=== PATIENT | male | born 1950 | race Caucasian/White ===

== ENCOUNTER 2024-04-24 18:14 | Inpatient (IN) | payer OTHER, SELFPAY ==
[2024-04-24] VITALS (12 sets, daily range): BP systolic 120–179; BP diastolic 70–157; BMI 29.2
--- NOTE | 2024-04-24 12:48 | ED.PDOC.TRB ---
ED Provider Triage
-
Patient seen by provider in Triage?: Seen in Triage
73-year-old male sent to the ER by cardiology team to ultimately be admitted for CHF exacerbation despite medications at home. Patient endorses worsening shortness of breath and lower extremity edema. At rest he still feels somewhat short of
breath but is still speaking full sentences and in no acute respiratory distress. Labs and workup initiated. Patient's ultimate disposition will be to be admitted.
[2024-04-24 13:14] LABS: % Basophils 0.8 % (0-2); % Eosinophils 1.9 % (0-6); % Immature Granulocytes 2.4 % (0-0.5); % Neutrophils 59.9 % (42.2-75.2); Absolute Basophils 0.1 10^3/uL (0-0.2); Absolute Eosinophils 0.2 10^3/uL (0-0.7); Absolute Immature Granulocytes 0.3 10^3/uL (0-0.05); Absolute Lymphocytes 2.8 10^3/uL (1.2-3.4); Absolute Neutrophils 6.5 10^3/uL (1.4-6.5); Hematocrit 42.4 % (39.0-52.0); Hemoglobin 14.4 g/dL (13.0-18.0); Mean Corpuscular Hgb 31.9 pg (27.0-31.0); Mean Corpuscular Volume 93.8 fL (80.0-94.0); Mean Platelet Volume 10.2 fL (7.4-10.4); Nucleated Red Blood Cells % 0 % (-); Platelet Count 152 10^3/uL (130-400); Red Blood Cell Count 4.52 10^6/uL (4.70-6.10); Red Cell Dist. Width 15.5 % (11.5-14.5); White Blood Cell Count 10.9 10^3/uL (4.8-10.8)
[2024-04-24 13:28] LABS: Blood Urea Nitrogen 22 mg/dl (9-20); Calcium 9.3 mg/dl (8.4-10.2); Carbon Dioxide 24 mmol/L (22-30); Chloride 107 mmol/L (98-107); Glucose 202 mg/dl (70-99); Potassium 3.9 mmol/L (3.5-5.1); Sodium 141 mmol/L (135-145); eGFR > 60.00
[2024-04-24 13:34] LABS: NT-proBNP 2800 pg/ml
--- NOTE | 2024-04-24 14:29 | W.PN.CD ---
Addendum entered and electronically signed by Juan M Romero MD 04/24/24 15:21:
Patient evaluated in collaboration with BOX OFFICE AGENT; agree with below. Patient transferred from the cardiology office for worsening suspected CHF; cardiac history as outlined below.
-Will arrange right and left heart catheterization tomorrow; then subsequent evaluation by EP Cardiology.
-Echocardiogram today.
-Lasix 40 IV BID.
-Hold Eliquis tonight for procedure tomorrow morning.
-rn mental health.
-NPO after midnight.
Original Note:
Today's Communication / Plan
-
IV diuresis, which requires intensive monitoring
Echo
Timing TBD for potential ischemic eval and pacemaker
Impression / Plan
-
Assessment/Plan: 73 y/o male with CAD with LAD stent 2006, RCA stent 2011, LM and D1 stenting 2018, aflutter with hx ablation, tetralogy of Fallot repair, pulmonic stenosis, first degree AVB, bifascicular block, NSVT, CML, HTN, trigeminal neuralgia,
chronic low back pain who is here from the office since he reported SOB, LE edema. Lasix 40 mg daily was attempted as OP, but did not help. Home sats in high 80's at times.
Acute heart failure:
-type unknown, but most recent EF 50% so preserved EF. Check echo.
-weight up, edema, SOB. BNP 2800. CXR pending.
-on lasix 40 mg daily as OP, plan for IV lasix, which requires intensive monitoring- 40 mg IV BID for now.
CAD with history of multiple stents:
-on ASA and Eliquis
-likely to need ischemic eval, will review timing/plan
Cardiac conduction disease:
-patient with hx RBBB, LBBB seen on OP EKG today
-follow telemetry
-will need pacemaker, will need EP input
Persistent AFIB:
-on Eliquis
Full consultation in chart.
Physical Exam
Vital Signs/Labs
Vital Signs
Temp Pulse Resp BP Pulse Ox
97.5 F 53 29 134/89 96
04/24/24 12:44 04/24/24 14:17 04/24/24 14:17 04/24/24 14:17 04/24/24 14:17
04/24/24 12:59
04/24/24 12:59
04/24/24
12:59
Kct-H-Nbzjjnjvxvb Pept 2800
Physical Exam
Constitutional: No acute distress
EENT: Anicteric
Cardiovascular: Rhythm/rate is irregular and Pedal edema present (moderate BLE edema)
Respiratory: Other (diminished to bases, mildly increased WOB)
Neuro/Psych: AO x 3
Other: Skin
Data Reviewed
-
Date of Service: April 24, 2024
EKG: Other (tele AFIB)
Echo: Ordered by me
--- NOTE | 2024-04-24 14:43 | ED.GENMED ---
History of Present Illness
General
Chief Complaint: Breathing Problem
Source: patient and spouse
Exam Limitations: none
Time Seen by Provider: 04/24/24 14:03
Nursing documentation reviewed up to this point in time: agreed with
Travel History
Have you had any contact with someone who has COVID-19?: No
Do you have any symptoms of coronavirus? Fever > 100 degrees, chills, cough, shortness of breath, sore throat, loss of taste or smell, muscle aches, or headache?: No
History of Present Illness
History of Present Illness:
73-year-old male past medical history of A-fib currently on Eliquis, CAD hypertension presenting to the emergency department today after being sent in by his machine designer with concerns of heart failure exacerbation. He has gained 15 pounds in last
3 weeks and has had increasing lower extremity edema. He is also been intermittently short of breath and hypoxemic at home. At rest here he claims that he feels okay but has significant increasing symptoms with exertion.
Past History
Past History
ED Past Medical History: Arrthythmia, CAD, Cancer (CML) and Hypercholesterolemia
ED Past Surgical History: Appendectomy, Cardiac (Cardiac ablation, tetrology of fallot repair) and Cholecystectomy
Social History
Tobacco: Non-smoker
Alcohol: Former
Drug: None
Personal:
Living: with family
Employment: Employed ([employer])
Family History
Family History: Other (Mother with diabetes)
Review of Systems
Review of Systems
Allergies reviewed?: Yes
All Other Systems: ROS reviewed and negative except as documented in HPI and ROS
Phy Exam
Physical Exam
Physical Exam:
GENERAL: Alert , in no apparent distress
EYE: pupils equal and reactive
NECK: Supple, no significant adenopathy.
ENT: o/p clr, mmm.
CARDIAC: Regular rate and rhythm .
LUNGS: Clear breath sounds bilaterally, no acute respiratory distress, no wheezes/rales/rhonchi
ABDOMEN: Soft, without focal tenderness, no r/g, no cvat
NEUROLOGICAL: Alert and oriented, no focal neuro deficits
SKIN: Warm and dry, skin intact.
MUSCULOSKELETAL: +2 pitting edema bilaterally distal to the knees, well perfused.
PSYCH: Normal and appropriate interaction.
Scores
Heart Failure Risk
Heart Failure Risk Score: Not Applicable
Course
Orders/Labs/Results
Orders:
Orders
04/24/24 12:52
Electrocardiogram (*1) Urgent
Reason for Study: Shortness of Breath
EKG- Treatment ONCE
CR Chest - 2 Views Urgent
Comment:
Reason For Exam: CHF
04/24/24 12:59
Basic Metabolic Panel Urgent
Complete Blood Count/With Diff Urgent
NT-proBNP Urgent
04/24/24 14:39
Echo 2D MMode Color/Doppler Routine
Reason for Study: CHF
04/24/24 14:41
Furosemide [Lasix] 40 mg IV ONCE ONE
04/24/24 14:42
Troponin I Urgent
Weight As Directed
Frequency: Daily
Abnormal Lab Results
04/24/24
12:59
WBC 10.9 H 10^3/uL
(4.8-10.8)
RBC 4.52 L 10^6/uL
(4.70-6.10)
MCH 31.9 H pg
(27.0-31.0)
RDW 15.5 H %
(11.5-14.5)
Abs Immat Gran (auto) 0.3 H 10^3/uL
(0-0.05)
Absolute Monos (auto) 1.0 H 10^3/uL
(0.1-0.6)
Immature Gran % 2.4 H %
(0-0.5)
BUN 22 H mg/dl
(9-20)
Glucose 202 H mg/dl
(70-99)
04/24/24 12:59
04/24/24 12:59
Vital Signs
Initial and Last Documented VS:
Initial Vital Signs
Temp Pulse Resp BP Pulse Ox
97.5 F 56 20 132/80 96
04/24/24 12:44 04/24/24 12:44 04/24/24 12:44 04/24/24 12:44 04/24/24 12:44
Last Documented Vital Signs
Temp Pulse Resp BP Pulse Ox
97.5 F 53 29 134/89 96
04/24/24 12:44 04/24/24 14:17 04/24/24 14:17 04/24/24 14:17 04/24/24 14:17
MDM/Problems Addressed
MDM/Problems Addressed:
73-year-old male presenting to the emergency department today with concerns of likely heart failure exacerbation worsening at home despite taking Lasix. Sent in by his machine designer. Message received by his machine designer specifically plan to admit
for IV Lasix and further assessment.
*Critical Care Note
Total Time (30-74mins, 75-104mins- exclusive of procedures): Not Applicable
ED Attending Note
-
Portions of this chart may have been created with voice recognition software.� Occasional wrong word or��sound alike� substitutions may have occurred due to the inherent limitations of voice recognition software.
Discharge Plan
Departure
Patient Disposition: Admit
Date of Disposition: 04/24/24
Time of Disposition: 14:45
Admit to: Telemetry
Admit to doctor: Jose E
Presentation/result/management discussed w/ accepting MD/DO: Hospitalist
Patient with high blood pressure during this ER visit?: No
Condition: Good
Covid-19: Not Applicable
Discharge Problem:
Acute exacerbation of CHF (congestive heart failure)
Prescriptions:
No Action
furosemide 20 MG tablet
40 mg PO Q48H
oxycodone 15 MG tablet
15 mg PO NOON
Patient Comments:
12/23/20-patient lasted filled on 07/14/2020 #90
nitroglycerin 0.4 MG tablet, sublingual
0.4 mg sublingual [id number] PRN (Reason: chest pain)
oxycodone [OxyContin] 30 MG tablet extended release 12 hr
30 mg PO BID
Patient Comments:
12/23/20-ptient lasted filled 11/22/20 #60
atorvastatin 40 MG tablet
40 mg PO NOON
polyethylene glycol 3350 17 GRAMS powder in packet
17 grams PO QPM
gabapentin 400 MG capsule
400 mg PO TID Qty: 90 0RF
acetaminophen 325 MG tablet
650 mg PO DAILYPRN PRN (Reason: low grADE FEVER)
Patient Comments:
PATIENT IN PROCESS OF GETTING COVID VACCINES AND HE SAID HE BEEN GETTING LOW GRADE FEVER AROUND 99
dasatinib [Sprycel] 100 MG tablet
100 mg PO HS
metoprolol succinate 12.5 MG tablet extended release 24 hr
12.5 mg PO HS
pantoprazole 40 MG tablet,delayed release (DR/EC)
40 mg PO BID Qty: 60 0RF
clopidogrel 75 MG tablet
75 mg PO NOON Qty: 0 0RF
Rx Instructions:
resume on 12/29/20
apixaban [Eliquis] 5 MG tablet
5 mg PO BID 30 Days Qty: 60 0RF
Patient Comments:
patient held off on taking this because of rectcal bleeding
Rx Instructions:
resume on 12/29/20
Interventions
Interventions:
*ED COVID-19 Vaccine History Last Done: 04/24/24 12:44
Discharge Date and Time
Print Language: YI
[2024-04-24] MEDS: LASIX 40 MG IV (15:14)
--- NOTE | 2024-04-24 15:45 | HPS.HSE ---
Family Physician
-
Family Physician: Gonzalez Garcia
Chief Complaint
-
Increasing weight gain and shortness of breath
History of Present Illness
73-year-old sent in to the ER from by the cardiology team for admission due to CHF exacerbation despite medication changes at home in the past week with increasing shortness of breath and lower extremity edema in the last week with a weight gain of
approximately 15 pounds.
He has a longstanding history of chronic cardiac issues that include coronary artery disease with multiple stents along with permanent atrial fibrillation on Eliquis and a history of tetralogy of Fallot with VSD repair when much younger apparently
may have a history of bifascicular block but a left bundle branch block seen on EKG today is remarkably new according to cardiology and now will be admitted with cardiology consultation and electrophysiology input. Patient's proBNP is 2800 prior it
had been about 680/presently undergoing 2D echocardiogram at bedside in the ED and chest x-ray results pending but look to be consistent with vascular edema.
Medical History
Past Medical History
Past Medical History: Reports Arrhythmia (Permanent atrial fibrillation), CAD (2 stents 1 to the LAD in 2006 another 1 to the RCA in 2019), Cancer (CML on), HTN and Valvular Disease (VSD repair and tetralogy of Fallot by history)
Past Surgical History: Reports Cardiac
Social History
Tobacco: Non-smoker
Alcohol: None
Drug: None
Personal:
Living: With Family
Family History
Family History: Not pertinent and Cancer
Allergies / Home Medications
Allergies reflects when Allergies were last updated in [facility].
Home Medications with original date entered in [facility]
Allergy/Medication List:
Allergies
Allergy/AdvReac Type Severity Reaction Status Date / Time
fentanyl Allergy Nausea / Verified 04/24/24 12:45
Vomiting
scallops Allergy Vomiting Verified 04/24/24 12:45
Home Medications
furosemide 20 mg tablet 40 mg PO DAILY Weight Gain 08/22/20
acetaminophen 325 mg tablet 650 mg PO DAILYPRN PRN mild pain 12/23/20
metoprolol succinate 25 mg tablet,extended release 24 hr 12.5 mg PO HS Blood pressure 12/23/20
apixaban 5 mg tablet (Eliquis) 5 mg PO BID Blood clot prevention/tx 30 days #60 tabs 12/27/20
Patient's Own Morphine Pump 0 mg IV .VIA PUMP 04/24/24
Senna Gummies 2 tab PO DAILYPRN PRN constipation 04/24/24
aspirin 81 mg chewable tablet 81 mg PO DAILY 04/24/24
duloxetine 30 mg capsule,delayed release 30 mg PO DAILY 04/24/24
losartan 25 mg tablet 25 mg PO DAILY 04/24/24
pregabalin 150 mg capsule 150 mg PO BID 04/24/24
pregabalin 75 mg capsule 75 mg PO DAILY@1200 04/24/24
simvastatin 20 mg tablet 20 mg PO HS 04/24/24
Review of Systems
-
History Source: Patient and Family
Respiratory: Reports Cough
Cardiac: Reports See HPI
Abdomen/GI: Reports No Symptoms
: Reports No Symptoms
Musculoskeletal: Reports No Symptoms and Joint Swelling
Physical Exam
Vital Signs
Vital Signs
Temp Pulse Resp BP Pulse Ox
97.5 F 55 15 121/70 94
04/24/24 12:44 04/24/24 15:15 04/24/24 15:15 04/24/24 15:00 04/24/24 15:15
Physical Exam
General: Appears Chronically Ill
HEENT: NormoCephalic
Respiratory: Rales and Crackles
Cardiac: Irregular Rhythm and Murmur
GI: Soft
Musculoskeletal: Edema, Left Lower Extremity and Edema, Right Lower Extremity
Skin: IV/Catheter Site
Neuro: Awake
Laboratory Results
-
04/24/24 12:59
04/24/24 12:59
Laboratory Results
Troponin I Cancelled 04/24/24 14:42
Data Reviewed
-
Critical Care Time (in minutes): 56
Diagnostic Radiology: Report Reviewed by me (Chest x-ray with small right pleural effusion and cardiomegaly)
Lab Data: Labs Reviewed by me (Troponin pending, proBNP 2079/)
Impression/Plan
-
IMPRESSION:
73-year-old sent in to the ER from by the cardiology team for admission due to CHF exacerbation despite medication changes at home in the past week with increasing shortness of breath and lower extremity edema in the last week with a weight gain of
approximately 15 pounds.
He has a longstanding history of chronic cardiac issues that include coronary artery disease with multiple stents along with permanent atrial fibrillation on Eliquis and a history of tetralogy of Fallot with VSD repair when much younger apparently
may have a history of bifascicular block but a left bundle branch block seen on EKG today is remarkably new according to cardiology and now will be admitted with cardiology consultation and electrophysiology input. Patient's proBNP is 2800 prior it
had been about 680/presently undergoing 2D echocardiogram at bedside in the ED and chest x-ray results pending but look to be consistent with vascular edema.
Acute congestive heart failure
-Prior echocardiogram with 50% EF and pulmonary hypertension
-Weight gain and orthopnea
-Lasix IV 40 mg twice daily
-Losartan 25 mg p.o. daily
-2D echocardiogram being presently performed at bedside
-Cardiology consultation
Bifascicular block
-Based on cardiology record new left bundle branch block
-Will probably require pacemaker insertion
-EP consultation
-N.p.o. after midnight and hold Eliquis tonight
Permanent atrial fibrillation
-Rate management with metoprolol succinate 12.5 at at bedtime
-On chronic apixaban which will be held tonight
Coronary artery disease by history
-LAD stent, RCA stent
-Continue aspirin and clopidogrel, statin
Chronic pain
-Continue patient is on morphine pump at prior settings/as pharmacy verifies
-Continue pregabalin
-Duloxetine
Prior history of chronic myelogenous leukemia
Prior history of tetralogy of Fallot with VSD repair
Admit to telemetry
DVT prophylaxis on apixaban and venous pump
DNR/DNI/acknowledged by spouse at bedside
[2024-04-24 16:11] LABS: Troponin I 0.043 ng/ml
[2024-04-24] MEDS: LYRICA 150 MG PO (21:50)
[2024-04-24] MEDS: LIPITOR 10 MG PO (21:50)
[2024-04-24] MEDS: TOPROL XL 12.5 MG PO (21:50)
[2024-04-24 21:53] LABS: Troponin I 0.039 ng/ml
[2024-04-24 22:27] LABS: Vitamin B12 247 pg/ml (239-931)
[2024-04-25] VITALS (18 sets, daily range): BP systolic 108–164; BP diastolic 72–97; BMI 28.7
[2024-04-25 04:56] LABS: Hematocrit 46.8 % (39.0-52.0); Hemoglobin 15.9 g/dL (13.0-18.0); Mean Corpuscular Hgb 32.1 pg (27.0-31.0); Mean Corpuscular Volume 94.4 fL (80.0-94.0); Mean Platelet Volume 9.7 fL (7.4-10.4); Platelet Count 135 10^3/uL (130-400); Red Blood Cell Count 4.96 10^6/uL (4.70-6.10); Red Cell Dist. Width 15.4 % (11.5-14.5); White Blood Cell Count 10.9 10^3/uL (4.8-10.8)
[2024-04-25 05:25] LABS: Blood Urea Nitrogen 21 mg/dl (9-20); Calcium 9.7 mg/dl (8.4-10.2); Carbon Dioxide 26 mmol/L (22-30); Chloride 105 mmol/L (98-107); Estimated Creatinine Clearance 87 ml/min; Glucose 139 mg/dl (70-99); Potassium 4.4 mmol/L (3.5-5.1); Sodium 138 mmol/L (135-145); eGFR > 60.00
[2024-04-25 05:37] LABS: Troponin I 0.041 ng/ml
--- NOTE | 2024-04-25 05:50 | PTCARENOTE ---
Received pt from ED. Oriented to room. AOX4. Tele- Afib w/ BBBC. HR 40-50s. Pt sating at 97% on 2L O2 NC. Currently has no c/o at this time. Multiple wounds documented. See worklist. Wound nurse consulted. B/l heel foams applied. Labs drawn and set.
Pt aware NPO status for cath. Currently in bed; call barone w/in reach.
--- NOTE | 2024-04-25 07:57 | W.PN.HOSP.TC ---
Today's Communication/Plan
-
Eliquis on hold in preparation for cardiac cath this morning possible pacer insertion
Continue IV diuresis
Fluid restriction
Monitor BMP
Assessment / Plan
Assessment / Plan
73-year-old sent in to the ER from by the cardiology team for admission due to CHF exacerbation despite medication changes at home in the past week with increasing shortness of breath and lower extremity edema in the last week with a weight gain of
approximately 15 pounds.
He has a longstanding history of chronic cardiac issues that include coronary artery disease with multiple stents along with permanent atrial fibrillation on Eliquis and a history of tetralogy of Fallot with VSD repair when much younger apparently
may have a history of bifascicular block but a left bundle branch block seen on EKG today is remarkably new according to cardiology and now will be admitted with cardiology consultation and electrophysiology input. Patient's proBNP is 2800 prior it
had been about 680/presently undergoing 2D echocardiogram at bedside in the ED and chest x-ray results pending but look to be consistent with vascular edema.
Past Medical History: Reports Arrhythmia (Permanent atrial fibrillation), CAD (2 stents 1 to the LAD in 2006 another 1 to the RCA in 2019), Cancer (CML on), HTN and Valvular Disease (VSD repair and tetralogy of Fallot by history)
Past Surgical History: Reports Cardiac
Acute congestive heart failure
-Prior echocardiogram with 50% EF and pulmonary hypertension
-Weight gain and orthopnea
-Lasix IV 40 mg twice daily
-Losartan 25 mg p.o. daily
-2D echocardiogram performed in ED now shows a new RV dilatation with intact systolic function/EF unchanged from prior 55%
-Cardiology consultation
Bifascicular block
-Based on cardiology record new left bundle branch block
-Will probably require pacemaker insertion
-EP consultation
-N.p.o. after midnight and hold Eliquis for cardiac cath today
Permanent atrial fibrillation
-Rate management with metoprolol succinate 12.5 at at bedtime
-On chronic apixaban which will be held tonight
Coronary artery disease by history
-LAD stent, RCA stent
-Continue aspirin and clopidogrel, statin
Chronic pain
-Continue patient is on morphine pump at prior settings/as pharmacy verifies just refilled last week
-Continue pregabalin
-Duloxetine
Prior history of chronic myelogenous leukemia
Prior history of tetralogy of Fallot with VSD repair
Admit to telemetry
DVT prophylaxis on apixaban and venous pump
DNR/DNI/acknowledged by spouse at bedside
Anticipated Discharge: Within 24 hours
Subjective/Interval History
-
Date of Service: April 25, 2024
With sleep overnight good urine output with IV diuresis and denies any significant respiratory distress no chest pain
Objective Data
-
Labs:
Laboratory Results
04/25/24
04:45
WBC 10.9 H
Hgb 15.9
Hct 46.8
Plt Count 135
Sodium 138
Potassium 4.4
Chloride 105
Carbon Dioxide 26
BUN 21 H
Creatinine 0.7
Glucose 139 H
Calcium 9.7
Vital Signs:
Vital Signs
Temp Pulse Resp BP Pulse Ox
97.4 F 42 20 164/83 95
04/25/24 07:26 04/25/24 05:00 04/25/24 07:26 04/25/24 04:54 04/25/24 07:26
Review of Systems
-
All other systems: Reviewed and negative
Constitutional: Reports Fatigue
Respiratory: Reports No Symptoms
Cardiac: Denies Chest Pain
Abdomen/GI: Reports No Symptoms
Physical Exam
-
General: Well Developed
HEENT: Normocephalic
Respiratory: Clear to Auscultation
Cardiac: Bradycardic (In the 40s with underlying A-fib)
GI: Soft
Musculoskeletal: Edema, Right Lower Extrem and Edema, Left Lower Extrem
Skin: Warm
Neuro: Awake
Data Reviewed
-
Total Time Spent with Patient (in minutes): 56
Medical Tests (Nuc Med, Echo etc): Report Reviewed by me (Reviewed report of repeat 2D echocardiogram now showing rt ventricular dilatation with intact systolic function dilated atria EF unchanged)
Labs: Labs Reviewed by me
[2024-04-25] MEDS: LOW STRENGTH ASPIRIN 81 MG PO (08:24)
[2024-04-25] MEDS: COZAAR 25 MG PO (08:24)
[2024-04-25] MEDS: LYRICA 150 MG PO ×2 (08:24→21:59)
[2024-04-25] MEDS: LASIX 40 MG IV ×2 (08:25→16:18)
--- NOTE | 2024-04-25 11:21 | CM ---
Chart reviewed. Patient is independent of ADLS, lives with his in a [address], 0 [address], ambulates with a rollator. Patient also has a Bipap machine he uses at home. Plan is for the patient to return home with [facility]. [facility] to follow
--- NOTE | 2024-04-25 13:59 | ITS.CL.CATH ---
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
Cardiac Catheterization
Procedure Report:
CARDIAC CATHETERIZATION REPORT
Date of Procedure: 04/25/2024
Referring: Juan M Romero M.D.
Indication: Acute congestive heart failure, known coronary artery disease.
PROCEDURE:
1. Right heart catheterization.
2. Left heart catheterization.
3. Coronary angiography.
4. Left ventriculography.
ACCESS:
6 [place] right radial artery.
5 [place] right antecubital vein.
CATHETERS:
1. 5 [place] balloon wedge.
2. 5 [place] JL 3.5.
3. 6 [place] JR4.
4. 5 [place] angled pigtail.
HEMODYNAMIC DATA
Weight (kg): 82.6
AO (s/d/x mmHg): 145/81/104
LV (s/x mmHg): 145/15
PCWP (a/v/x mmHg): 16/39/16
PA (s/d/x mmHg): 36/15/22
RV (s/x mmHg): 61/15
RA (a/v/x mmHg): 17/
SVC SvO2 (%): 55.9
IVC SvO2 (%): 61.9
MVO2 (%): 57.4
RA SvO2 (%): 57.5
RV SvO2 (%): 55.9
PA SvO2 (%): 55.8
SaO2 (%): 95.1
Hbg (g/dL): 15.5
CO (L/min): 2.66
CI (L/min/m2): 1.37
TPG (mmHg): 6
PVR (Lance Units): 2.26
SVR (dynes*seconds*cm^-5): 2677
AVO2 Diff (Volume %): 8.28
AV gradient (x, mmHg): None.
AV area (cm2): Normal.
PV gradient (x, mmHg): 12.25
PV area (cm2): 1.70
LEFT VENTRICULOGRAPHY: Performed in an [place] projection. Normal left ventricular size and systolic function. Left ventricular ejection fraction is 65% by visual estimation. There is a small apical ventricular diverticulum. There is severe mitral
valve regurgitation. There is no aortic valve insufficiency. The aortic root is at least mildly dilated.
CORONARY ANGIOGRAPHY
Dominance: Right.
Left Main: Large size, trifurcating vessel. A patent stent is visible in the proximal margin of the artery. There is a 60-70% lesion in the distal aspect of the artery, immediately proximal to the trifurcation.
LAD: Normal size vessel giving rise to 1 significant diagonal which bifurcates into a small upper branch and a large lower branch. A prior stent is visible in the proximal margin of the lower branch of the diagonal. The lower branch of the
diagonal is chronically totally occluded and supplied by diagonals from the RCA.
Ramus: Medium to large size vessel. There is no visible coronary artery disease, though there may be some extension of the left main lesion into the origin of the ramus.
Circumflex: Normal size, nondominant vessel giving rise to 2 marginals. There is a Eason 1, 1, 1 90% lesion at the origin of the first obtuse marginal. There is a 40-50% lesion in the origin of the second, smaller obtuse marginal.
RCA: Large size, dominant vessel giving rise to a significant posterolateral arcade. The RCA gives rise to 2 significant RV marginals that coursed along the front of the heart and supply the middle and distal inferior septum. A patent stent is
present in the mid RCA with a 70% ISR. There is a 50% lesion in the distal RCA, immediately proximal to the origin of the small RPDA which supplies the proximal half of the inferior septum. There are tandem 80% lesions in the large posterolateral
branch. There is a 70% lesion in the proximal margin of the first acute marginal. The second acute marginal is chronically totally occluded and supplied by collaterals from the first acute marginal.
INTERVENTIONS
None.
Closure Device: Vascular band for the right radial artery, manual pressure for the right antecubital vein.
Radiation dose (mGy): 578.81
DAP (cm2.Gy): 19.2
Fluoroscopy time (minutes): 7.2
Sedation time (minutes): 31
CONCLUSIONS:
1. 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
lesion in the origin of the second, smaller OM, a patent stent with 70% ISR in the mid RCA, a 70% lesion in a large RV marginal which supplies the distal aspect of the inferior septum and a COURIER DELIVERY DRIVER of the second acute marginal with severe, tandem 80%
lesions in the large posterolateral branch.
2. Top normal to mildly elevated filling pressures (LVEDP = 15 mmHg, PCWP = 15 mmHg at 82.6 kg).
3. Severely depressed cardiac function (cardiac index = 1.37 L/min/m�).
4. Severe, 3+ mitral valve regurgitation.
5. Preserved LV systolic function, LV ejection fraction = 65% with a small apical diverticulum.
6. Severely elevated systemic vascular resistance (2677 dynes*seconds*cm^-5).
7. History of tetralogy of Fallot repair, age 24. No evidence of residual intracardiac shunt.
RECOMMENDATIONS:
1. Expectant management after cardiac catheterization via right radial/antecubital approach.
2. Limited weight bearing on the right wrist for one week.
3. Consultation with cardiothoracic surgery regarding optimal revascularization strategy.
4. The patient's complex left main disease precludes an effective percutaneous option at this time. Surgery feels that he may be better suited to a congenital surgery center.
5. Guideline directed medical therapy as hemodynamics will tolerate.
6. Monitor heart rhythm given alternating bundle branch block. Initial plan was for pacemaker, though this may be placed on hold if we are considering transfer for operative management.
Copy to: Juna M Romero M.D., Jun Leos M.D., Gonzalez Garcia M.D.
Last Patino DO, FACC, FACP
--- NOTE | 2024-04-25 14:01 | CONSULT.CT ---
Addendum entered and electronically signed by Eligio Ba MD 04/27/24 09:06:
I saw and examined the patient.
The PA's note was reviewed and I agree with the note.
Comment:
Complex patient w/ Hx of TOF repair.
I have discussed his case w/ Dr. Bárbara Angel (adult congenital surgery @ [facility]) who has graciously offered to assess his case
Current plan is for transfer to [facility] on Sunday
Original Note:
Consultation
-
Date/Time Consultation Requested: 04/25
Date/Time Consultation Performed: 04/25
Requesting Provider: Dr. Patino
Performing Provider: Cammy HERNANDEZ for Dr. Eligio Ba
Reason for Consultation: CABG evaluation with PMH TOF repair
Patient History
Physicians
Family Physician: Gonzalez Rosales
Inpatient Oil And Gas Field Technician: Last Patino
History of Present Illness
73-year-old admitted form cardiology office to ER on 04/24/24 due to CHF exacerbation. Patient reported increasing shortness of breath, lower extremity edema and 15 pound weight gain over past week. Pro BNP 2800.
He has a longstanding history of complex cardiac issues including coronary artery disease with multiple stents, permanent atrial fibrillation on Eliquis, and a history of tetralogy of Fallot with VSD repair.
TTE 04/24/24: EF 55-60%, dilated left atrium, mild TR, mild pulmonic stenosis (12/7mmHg), trace PI
Cath 04/25: report pending
Past Medical History
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
remote LGI bleed s/p chemo, compression fracture L1 w/pain pump)
Past Surgical History
Past Surgical History: Cholecystectomy and Other
Tetralogy of Fallot repair 52 years ago @ [facility]
VSD repair
AF ablation
coronary stents to LAD (2006) & RCA (2019)
Family History
Mother: at Age
Father: at Age
Social History
Alcohol: None
Drug: None
Tobacco: Non-Smoker
Personal:
Living: With Spouse
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
Allergies
Allergy/AdvReac Type Severity Reaction Status Date / Time
fentanyl Allergy Nausea / Verified 04/24/24 12:45
Vomiting
scallops Allergy Vomiting Verified 04/24/24 12:45
Home Medications
�Medication �Instructions �Recorded �Confirmed �Type
furosemide 20 mg tablet 40 mg PO DAILY Weight Gain 08/22/20 04/24/24 History
acetaminophen 325 mg tablet 650 mg PO DAILYPRN PRN mild pain 12/23/20 04/24/24 History
metoprolol succinate 25 mg 12.5 mg PO HS Blood pressure 12/23/20 04/24/24 History
tablet,extended release 24 hr
apixaban 5 mg tablet (Eliquis) 5 mg PO BID Blood clot 12/27/20 04/24/24 Rx
prevention/tx 30 days #60 tabs
Patient's Own Morphine Pump 0.9203 mg IV .VIA PUMP Pain 04/24/24 04/24/24 History
Senna Gummies 2 tab PO DAILYPRN PRN constipation 04/24/24 04/24/24 History
aspirin 81 mg chewable tablet 81 mg PO DAILY Blood Clot 04/24/24 04/24/24 History
Prevention/Tx
losartan 25 mg tablet 25 mg PO DAILY Blood Pressure 04/24/24 04/24/24 History
pregabalin 150 mg capsule 150 mg PO BID Neurological 04/24/24 04/24/24 History
Condition
pregabalin 75 mg capsule 75 mg PO DAILY@1200 Neurological 04/24/24 04/24/24 History
Condition
simvastatin 20 mg tablet 20 mg PO HS High Cholesterol 04/24/24 04/24/24 History
Review of Systems
-
History Source: Patient
General: Reports No Symptoms
HEENT: Reports Other (mild residual R facial paralysis)
Respiratory: Reports No Symptoms
Cardiac: Reports No Symptoms
Abdomen/GI: Reports No Symptoms
: Reports No Symptoms
Musculoskeletal: Reports No Symptoms
Skin: Reports No Symptoms
Neurological: Reports No Symptoms
Vascular: Reports No Symptoms
Physical Exam
Vital Signs
Temp 97.6 F 04/25/24 11:11
Temp route: Oral 04/25/24 11:11
Pulse 45 04/25/24 12:00
Rhythm: Atrial fibrillation 04/25/24 08:17
With- Bundle Branch Block Confi, PVC's Monomorphic 04/25/24 08:17
Resp Rate 20 04/25/24 11:11
Blood pressure 123/77 04/25/24 11:12
Blood pressure extremity used: Right upper arm 04/25/24 11:11
Position: Lying 04/25/24 11:11
MAP (cuff-Lainey Monitor) 90 04/25/24 11:12
SaO2 95 04/25/24 12:27
Nasal Cannula flow liters per minute 2 04/25/24 12:27
Oxygen Mode of Delivery Room air 04/24/24 12:44
Acceptable pain level during hospitalization? 0 04/24/24 12:44
Can the patient verbally communicate their pain? Yes 04/25/24 08:17
Pain scale ratin 04/25/24 08:17
Actual Weight 82.9 kg 04/25/24 05:11
Body Mass Index (BMI) 28.7 04/25/24 05:11
Labs
04/25/24 04:45
04/25/24 04:45
Troponin I 0.041 ng/ml H* 04/25/24 04:45
Rur-N-Dixtlidncwm Pept 2800 pg/ml 04/24/24 12:59
Exam
General: Well Developed, Well Nourished and No Apparent Distress
HEENT: Other (mild R facial paralysis (d/t trigeminal neuralgia))
Respiratory: Other (bibase crackles)
Cardiac: S1/S2, Irregular Rhythm, Murmur (II/ systolic murmur) and Other (median sternotomy scar)
GI: Soft, Non Tender, Non Distended and Normal Bowel Sounds
Rectal: Deferred by Provider
Skin: Warm, Dry and Other (multiple areas ecchymosis B/L UE ( on Eliquis))
Neuro: AO x 3
Extremities: Pulses (+1/4 B/L DP pulses)
Lymph: No Lymphadenopathy
Psych: Calm
Assessment / Plan
-
73 year old male with progressive CAD in setting of prior coronary stents, congenital TOF/VSD repair, and CML in remission
- case d/w Dr. Ba who recommends adult congenital referral for consultation and possible intervention
Data Reviewed
-
EKG: Report Reviewed by me and Discussed with Physician
Magnetic Tester: Report Reviewed by me and Discussed with Physician
Echo: Report Reviewed by me and Discussed with Physician
Radiology: Report Reviewed by me and Discussed with Physician
Labs: Labs Reviewed by me and Discussed with Physician
--- NOTE | 2024-04-25 14:42 | WOUNDNOTE ---
[facility] RN NOTE: Reviewed chart, met with patient and . Patient has been going to [facility] for left heel wound, that appears to be a heal fissure. Bilateral heels with stage 1 PI. Both heels (including fissure) were covered with adhesive foam
and off-loaded on air cushion. Patient also has a macule on right lower leg that he reports is tender and has been present for a few months. This senior writer suggested patient follow up with barn hand for this macule. Patient has +2 LE edema (R>L)
and states recent EFREN were WNL. Faint pulses noted. 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 Wound and compression orders confirmed with hospitalist. SYDNEE [place] updated. Will continue to follow as needed.
--- NOTE | 2024-04-25 16:03 | WOUNDNOTE ---
Right lower leg
[2024-04-25] MEDS: LYRICA PO (16:18)
[2024-04-25] MEDS: HEPARIN 25000 UNITS/250 ML IV (18:49)
--- NOTE | 2024-04-25 19:34 | PTCARENOTE ---
Pt had cardiac cath via right radial artery and right brachial vein. Some oozing issues with radial band which was removed @18:20. Site is ecchymotic.
No further bleeding noted, dressings dry and intact. Telemetry shows atrial fib with BBB, occasional PVC's at a rate of 40-50's. Heparin infusion started as ordered at 1000 units/hr beginning @19:00hr. Pt OOB to bathroom with assistance, pt is very
stiff and at risk to fall, fall precautions in place. Plan to continue diuresing pt.
[2024-04-25] MEDS: LIPITOR 10 MG PO (21:59)
[2024-04-25] MEDS: TOPROL XL 12.5 MG PO (21:59)
[2024-04-25] MEDS: CYMBALTA DELAYED RELEASE PO (22:00)
[2024-04-26] VITALS (7 sets, daily range): BP systolic 88–116; BP diastolic 59–76; BMI 28.8
[2024-04-26 01:27] LABS: Hematocrit 39.3 % (39.0-52.0); Hemoglobin 14.3 g/dL (13.0-18.0); Mean Corp Hgb Conc. 36.4 g/dL (33.0-37.0); Mean Corpuscular Hgb 32.7 pg (27.0-31.0); Mean Corpuscular Volume 89.9 fL (80.0-94.0); Mean Platelet Volume 10.2 fL (7.4-10.4); Platelet Count 146 10^3/uL (130-400); Red Blood Cell Count 4.37 10^6/uL (4.70-6.10); Red Cell Dist. Width 15.4 % (11.5-14.5); White Blood Cell Count 9.9 10^3/uL (4.8-10.8)
[2024-04-26 01:39] LABS: APTT 68.2 Sec (23.4-35.0)
[2024-04-26 01:53] LABS: Blood Urea Nitrogen 29 mg/dl (9-20); Calcium 9.5 mg/dl (8.4-10.2); Carbon Dioxide 28 mmol/L (22-30); Chloride 102 mmol/L (98-107); Estimated Creatinine Clearance 87 ml/min; Glucose 146 mg/dl (70-99); Sodium 136 mmol/L (135-145); eGFR > 60.00
--- NOTE | 2024-04-26 03:22 | PTCARENOTE ---
Rec'd pt at start of shift AAOx3 w/no c/o CP or SOB. Pt OOB to for meals & able to ambulate w/1P contact guard assist w/RW. Pt's R radial & R brachial access sites w/dressings C/D/I w/no signs or symptoms of bleeding or hematoma. VS stable w/HR
in the mid to upper 50's. Pt's most recent BP stable at 127/81. Pt intermittently using own CPAP, switching back to O2 2L via NC. O2 sats 96-97% on CPAP and 2L O2 intermittently. Pt w/IV Heparin drip infusing through patent IV line as ordered. Plan
of care ongoing.
--- NOTE | 2024-04-26 08:04 | W.PN.HOSP.TC ---
Today's Communication/Plan
-
Continue heparin drip
Diuresis
Defer to cardiology regarding beta-blockers given intermitted BBB
Assessment / Plan
Assessment / Plan
73-year-old sent in to the ER from by the cardiology team for admission due to CHF exacerbation despite medication changes at home in the past week with increasing shortness of breath and lower extremity edema in the last week with a weight gain of
approximately 15 pounds.
He has a longstanding history of chronic cardiac issues that include coronary artery disease with multiple stents along with permanent atrial fibrillation on Eliquis and a history of tetralogy of Fallot with VSD repair when much younger apparently
may have a history of bifascicular block but a left bundle branch block seen on EKG is remarkably new according to cardiology and now will be admitted with cardiology consultation and electrophysiology input. Patient's proBNP is 2800 prior it had
been about 680/presently undergoing 2D echocardiogram at bedside in the ED and chest x-ray results pending but look to be consistent with vascular edema.
Past Medical History: Reports Arrhythmia (Permanent atrial fibrillation), CAD (2 stents 1 to the LAD in 2006 another 1 to the RCA in 2019), Cancer (CML on), HTN and Valvular Disease (VSD repair and tetralogy of Fallot by history)
Past Surgical History: Reports Cardiac
Echo 624-LV systolic function 55 to 60%. Wall motion consistent with conduction abnormality. Enlarged RV. Severely dilated LA. Severely dilated RA. Aortic sclerosis without stenosis. Mild TR. Pulmonary pressure of 30 to 35 mmHg. Mild
pulmonary stenosis. Trace pulmonary regurgitation.
CVS: S1-S2 irregular, systolic murmur apex, right heart border
Chest: Rales bilaterally
Abdomen: Soft, NT / Bowel sounds present
Extremities: Bilateral pedal edema
POLICE PATROL OFFICER: Non focal exam
#Acute heart failure with preserved ejection fraction
-Weight gain and orthopnea
-Continue Lasix IV 40 mg twice daily
-Losartan 25 mg p.o. daily
-Cath04/25/24- Right dominant circulation with severe, multivessel coronary disease including a 60-70% lesion in the distal aspect of the left main coronary artery,Top normal to mildly elevated filling pressures Wedge 15 mm Hg,Severe, 3+ mitral valve
regurgitation.Severely depressed cardiac function,Preserved LV systolic function, EF 65 %
-CT surgery evaluated-recommending adult congenital referral for consultation and intervention-possibly [place]
# Bifascicular block-intermittent
-Based on cardiology record new left bundle branch block
-Will probably require pacemaker insertion ?
-? Continue BB
-EP consultation
#Permanent atrial fibrillation
-History of ablation
-Rate management with metoprolol succinate 12.5 at at bedtime
-On chronic apixaban which is on hold-patient on heparin drip
#Coronary artery disease by history
-LAD stent, RCA stent
-Continue aspirin , statin
-Hold Plavix in anticipation of surgery
# Hyperlipidemia-statin
#Chronic pain-narcotic dependent
-Continue patient is on morphine pump at prior settings/as pharmacy verifies just refilled last week
-Continue pregabalin
-Duloxetine
#Trigeminal neuralgia
#Compression fracture L1
# Sleep apnea-CPAP
# Gout and arthritis
#Prior history of chronic myelogenous leukemia
#Prior history of tetralogy of Fallot with VSD repair at [facility]
#DVT prophylaxis on apixaban and venous pump
#DNR/DNI/acknowledged by spouse at bedside
Discussed with Cardiology in detail
Discussed with nursing
Time 52 min
Anticipated Discharge: > 48 hours
Subjective/Interval History
-
Date of Service: April 26, 2024
Objective Data
-
Labs:
Laboratory Results
04/26/24 04/26/24
01:18 07:49
WBC 9.9
Hgb 14.3
Hct 39.3
Plt Count 146
APTT 68.2 H Pending
Sodium 136
Potassium 4.0
Chloride 102
Carbon Dioxide 28
BUN 29 H
Creatinine 0.7
Glucose 146 H
Calcium 9.5
Vital Signs:
Vital Signs
Temp Pulse Resp BP Pulse Ox
97.9 F 52 18 111/72 95
04/26/24 07:35 04/26/24 07:30 04/26/24 07:35 04/26/24 06:49 04/26/24 07:35
I&O
04/25/24 04/26/24 04/27/24
06:59 06:59 06:59
Intake Total 1212 / 1212
Output Total 2049
Balance -838 / -838
[2024-04-26 08:10] LABS: APTT 100.2 Sec (23.4-35.0)
--- NOTE | 2024-04-26 08:55 | W.PN.CD ---
Today's Communication / Plan
-
Remains status quo.
Tentative plan for transfer on Sunday.
Impression / Plan
-
Impression/Plan: 73 y/o male with CAD with LAD stent 2006, RCA stent 2011, LM and D1 stenting 2018, aflutter with hx ablation, tetralogy of Fallot repair, pulmonic stenosis, first degree AVB, bifascicular block, NSVT, CML, HTN, trigeminal neuralgia,
chronic low back pain who is here from the office since he reported SOB, LE edema. Lasix 40 mg daily was attempted as OP, but did not help. Home sats in high 80's at times.
#Acute HFpEF
-LVEF 65% on LV gram. This did demonstrated severe mitral valve regurgitation.
-LVEDP/PCWP 15 mmHg.
-Limited role for diuresis, especially given enlarged RV, which may be preload dependent.
-Continue losartan.
-Start dapagliflozin 10 mg daily. Case management consult.
#CAD
-Chronic, stable.
-Troponin elevation mild and stuttering, inconsistent with ACS. It is likely due to HFpEF.
-Cardiac catheterization does reveal severe, complex CAD, not amenable to percutaneous intervention.
-Consultation with CTS. They believe (rightly) that the patient would do best with an ACHD surgeon given his history of ToF repair, severe MR and complex coronary disease.
-Maintain ASA and heparin gtt.
-Tentative plan to transfer to [place] on Sunday.
#Cardiac conduction disease:
-Patient with alternating bundle branch block.
-Follow telemetry.
-Will need pacemaker, likely at the time of CABG/MVr.
#Persistent AFIB
-Currently in AF.
-Alternating bundle branch block as noted.
-Rate control with LOW dose metoprolol 12.5 mg daily.
-CHADS2-Vasc = 3 (CHF, Age x1, vascular disease).
-Therapeutic anticoagulation with heparin gtt.
Subjective/Interval History:
Cath yesterday shows multivessel disease, not amenable to PCI.
Discussed with surgery. ACHD surgery consult recommended. [place] has tentatively accepted for Sunday.
DATA:
TTE, 04/25/2024:
CONCLUSIONS
-Left ventricular ejection fraction is 55-60%. Wall motion is consistent with
conduction abnormality.
-Enlarged right ventricular size. Normal right ventricular systolic function.
-Severely dilated left atrium. Severely dilated right atrium.
-Aortic sclerosis without stenosis.
-Mild tricuspid regurgitation. Estimated pulmonary artery pressure of 30-35
mmHg, assuming a right atrial pressure of 3 mmHg.
-Mild pulmonic stenosis; peak/mean gradients are 10/25. Trace pulmonic
regurgitation.
-Mildly dilated aortic root with Sinus of Valsalva measuring 3.9 cm.
Compared to previous echo on 11/16/23, the right ventricle is dilated but the
right ventricular function is normal.
Cardiac Catheterization, 04/25/2024:
CONCLUSIONS:
1. Right dominant circulation with severe, multivessel coronary disease including a 60-70% lesion in the distal aspect of the left main coronary artery, a USER INTERFACE ENGINEER of a large diagonal, complex, Eason 1, 1, 1 90% lesion in the circumflex/OM1, a 40-50%
lesion in the origin of the second, smaller OM, a patent stent with 70% ISR in the mid RCA, a 70% lesion in a large RV marginal which supplies the distal aspect of the inferior septum and a USER INTERFACE ENGINEER of the second acute marginal with severe, tandem 80%
lesions in the large posterolateral branch.
2. Top normal to mildly elevated filling pressures (LVEDP = 15 mmHg, PCWP = 15 mmHg at 82.6 kg).
3. Severely depressed cardiac function (cardiac index = 1.37 L/min/m�).
4. Severe, 3+ mitral valve regurgitation.
5. Preserved LV systolic function, LV ejection fraction = 65% with a small apical diverticulum.
6. Severely elevated systemic vascular resistance (2677 dynes*seconds*cm^-5).
7. History of tetralogy of Fallot repair, age 24. No evidence of residual intracardiac shunt.
Physical Exam
Vital Signs/Labs
Vital Signs
Temp Pulse Resp BP Pulse Ox
36.6 C 52 18 111/72 95
04/26/24 07:35 04/26/24 07:30 04/26/24 07:35 04/26/24 06:49 04/26/24 07:35
04/24/24 04/25/24 04/26/24
11:59 11:59 11:59
Actual Weight 82.9 kg 83.2 kg
04/26/24 01:18
04/26/24 01:18
APTT 100.2 Sec (23.4-35.0) H 04/26/24 07:49
Magnesium 2.0 mg/dl (1.6-2.3) 04/25/24 04:45
04/24/24
12:59
Wgg-X-Uceafmehdxs Pept 2800
LAB Results
04/24/24 04/24/24 04/24/24
12:59 14:42 21:15
Troponin I 0.043 H* Cancelled 0.039 H*
04/25/24 04/25/24
04:45 14:06
Troponin I 0.041 H* Cancelled
Physical Exam
Constitutional: No acute distress and Comfortable
EENT: Anicteric and Moist mucous membranes
Cardiovascular: Pedal edema is absent, JVD pressure is normal, Rhythm/rate is irregular, Systolic murmur present and S1S2 is normal
Respiratory: Respiratory effort normal, Lungs clear to auscul., Wheeze Absent, Crackles Absent and Rhonchi Absent
GI: Soft, Distention absent, Flat, Non tender and Normal bowel sounds
Neuro/Psych: AO x 3
Other: Cath Site (Right radial access site is C/D/I.)
Data Reviewed
-
Date of Service: April 26, 2024
Medical Decision Making: Reviewed Test Results, Independent Historian Assessment, Test Interpretation and Review of Case with other Provider
EKG: Tracing Personally Visualized and interpreted and Report Reviewed by me
Echo: Tracing Personally Visualized and interpreted and Report Reviewed by me
X-Ray/CT/US/MRI/NUC/PET: Image Personally Visualized and interpreted, Report Reviewed by me, Discussed with Physician, Discussed with Nurse, Discussed with Patient and Discussed with Family
Medical Tests (PFT, Pathology etc): Image Personally Visualized and interpreted, Report Reviewed by me, Discussed with Physician, Discussed with Nurse, Discussed with Patient and Discussed with Family
Labs: Labs Reviewed by me
Old Records: Reviewed
[2024-04-26] MEDS: LOW STRENGTH ASPIRIN 81 MG PO (09:26)
[2024-04-26] MEDS: COZAAR 25 MG PO (09:26)
[2024-04-26] MEDS: LASIX 40 MG IV ×2 (09:27→16:27)
[2024-04-26] MEDS: LYRICA 150 MG PO ×2 (09:27→19:46)
[2024-04-26] MEDS: SENOKOT PO ×3 (09:27→19:46)
[2024-04-26] MEDS: COLACE PO ×3 (09:27→19:46)
[2024-04-26] MEDS: FLUSH (NSS) 2 FLUSH IV (09:29)
--- NOTE | 2024-04-26 10:22 | PTCARENOTE ---
Received patient this morning sitting oob in the chair. Denies any chest pain or sob, remains on 2L NC. IV heparin infusing at 1100 units/hr and is at a therapeutic level, for repeat PTT at 1400.
[2024-04-26] MEDS: LYRICA 75 MG PO (12:53)
[2024-04-26 15:13] LABS: APTT 88.3 Sec (23.4-35.0)
[2024-04-26] MEDS: HEPARIN 25000 UNITS/250 ML IV (16:29)
--- NOTE | 2024-04-26 16:52 | PTCARENOTE ---
Remains on heparin gtt, PTT therapeutic. Given PM dose of IV lasix, however has a measured urine output so far this shift of 200ml. Patient bladder scanned for 42ml, will assess output after second IV dose of lasix.
[2024-04-26] MEDS: LIPITOR 10 MG PO (22:44)
[2024-04-26] MEDS: CYMBALTA DELAYED RELEASE 30 MG PO (22:44)
[2024-04-26] MEDS: TOPROL XL 12.5 MG PO (22:45)
[2024-04-27] VITALS (7 sets, daily range): BP systolic 95–125; BP diastolic 61–76; BMI 29.1
--- NOTE | 2024-04-27 00:42 | PTCARENOTE ---
Received at change of shift resting in bed. No c/o at that time. Heparin infusing at 1100units/hr. A-flutter on the monitor. Sleeping at intervals.
[2024-04-27 05:11] LABS: Hemoglobin 14.2 g/dL (13.0-18.0); Mean Corp Hgb Conc. 35.5 g/dL (33.0-37.0); Mean Corpuscular Hgb 32.3 pg (27.0-31.0); Mean Corpuscular Volume 90.9 fL (80.0-94.0); Mean Platelet Volume 10.4 fL (7.4-10.4); Platelet Count 140 10^3/uL (130-400); Red Cell Dist. Width 15.4 % (11.5-14.5)
[2024-04-27 05:24] LABS: APTT 106.2 Sec (23.4-35.0)
[2024-04-27 05:38] LABS: Blood Urea Nitrogen 34 mg/dl (9-20); Calcium 9.2 mg/dl (8.4-10.2); Carbon Dioxide 26 mmol/L (22-30); Chloride 102 mmol/L (98-107); Estimated Creatinine Clearance 76 ml/min; Glucose 150 mg/dl (70-99); Sodium 135 mmol/L (135-145); eGFR > 60.00
--- NOTE | 2024-04-27 08:17 | W.PN.CD ---
Today's Communication / Plan
-
Increase atorvastatin to 40 mg daily.
Tentative plan for transfer to [facility] tomorrow.
Impression / Plan
-
Impression/Plan: 73 y/o male with CAD with LAD stent 2006, RCA stent 2011, LM and D1 stenting 2018, aflutter with hx ablation, tetralogy of Fallot repair, pulmonic stenosis, first degree AVB, bifascicular block, NSVT, CML, HTN, trigeminal neuralgia,
chronic low back pain who is here from the office since he reported SOB, LE edema. Lasix 40 mg daily was attempted as OP, but did not help. Home sats in high 80's at times.
#Acute HFpEF
-LVEF 65% on LV gram. This did demonstrated severe mitral valve regurgitation.
-LVEDP/PCWP 15 mmHg.
-Limited role for diuresis, especially given enlarged RV, which may be preload dependent.
-Continue losartan and dapaglifozin.
#CAD
-Chronic, stable.
-Troponin elevation mild and stuttering, inconsistent with ACS. It is likely due to HFpEF.
-Cardiac catheterization does reveal severe, complex CAD, not amenable to percutaneous intervention.
-Consultation with CTS. They believe (rightly) that the patient would do best with an ACHD surgeon given his history of ToF repair, severe MR and complex coronary disease.
-Maintain ASA and heparin gtt.
-Increase atorvastatin to 40 mg daily.
-Tentative plan to transfer to [facility] on Sunday.
#Cardiac conduction disease:
-Patient with alternating bundle branch block.
-Follow telemetry.
-Will need pacemaker, likely at the time of CABG/MVr.
#Persistent AFIB
-Currently in AF.
-Alternating bundle branch block as noted.
-Rate control with LOW dose metoprolol 12.5 mg daily.
-CHADS2-Vasc = 3 (CHF, Age x1, vascular disease).
-Therapeutic anticoagulation with heparin gtt.
Subjective/Interval History:
No acute events.
No subjective complaints.
DATA:
TTE, 04/25/2024:
CONCLUSIONS
-Left ventricular ejection fraction is 55-60%. Wall motion is consistent with
conduction abnormality.
-Enlarged right ventricular size. Normal right ventricular systolic function.
-Severely dilated left atrium. Severely dilated right atrium.
-Aortic sclerosis without stenosis.
-Mild tricuspid regurgitation. Estimated pulmonary artery pressure of 30-35
mmHg, assuming a right atrial pressure of 3 mmHg.
-Mild pulmonic stenosis; peak/mean gradients are 12/7. Trace pulmonic
regurgitation.
-Mildly dilated aortic root with Sinus of Valsalva measuring 3.9 cm.
Compared to previous echo on 11/16/23, the right ventricle is dilated but the
right ventricular function is normal.
Cardiac Catheterization, 04/25/2024:
CONCLUSIONS:
1. Right dominant circulation with severe, multivessel coronary disease including a 60-70% lesion in the distal aspect of the left main coronary artery, a STAFF MECHANICAL ENGINEER of a large diagonal, complex, Eason 1, 1, 1 90% lesion in the circumflex/OM1, a 40-50%
lesion in the origin of the second, smaller OM, a patent stent with 70% ISR in the mid RCA, a 70% lesion in a large RV marginal which supplies the distal aspect of the inferior septum and a STAFF MECHANICAL ENGINEER of the second acute marginal with severe, tandem 80%
lesions in the large posterolateral branch.
2. Top normal to mildly elevated filling pressures (LVEDP = 15 mmHg, PCWP = 15 mmHg at 82.6 kg).
3. Severely depressed cardiac function (cardiac index = 1.37 L/min/m�).
4. Severe, 3+ mitral valve regurgitation.
5. Preserved LV systolic function, LV ejection fraction = 65% with a small apical diverticulum.
6. Severely elevated systemic vascular resistance (2677 dynes*seconds*cm^-5).
7. History of tetralogy of Fallot repair, age 24. No evidence of residual intracardiac shunt.
Physical Exam
Vital Signs/Labs
Vital Signs
Temp Pulse Resp BP Pulse Ox
36.5 C 44 20 125/76 93
04/27/24 08:00 04/27/24 06:00 04/27/24 08:00 04/27/24 04:24 04/27/24 08:00
04/25/24 04/26/24 04/27/24
11:59 11:59 11:59
Actual Weight 82.9 kg 83.2 kg
04/27/24 04:32
04/27/24 04:32
APTT 106.2 Sec (23.4-35.0) H 04/27/24 04:32
Magnesium 2.0 mg/dl (1.6-2.3) 04/27/24 04:32
04/24/24
12:59
Xok-B-Hydxwbhndni Pept 2800
LAB Results
04/24/24 04/24/24 04/24/24
12:59 14:42 21:15
Troponin I 0.043 H* Cancelled 0.039 H*
04/25/24 04/25/24
04:45 14:06
Troponin I 0.041 H* Cancelled
Physical Exam
Constitutional: No acute distress and Comfortable
EENT: Anicteric and Moist mucous membranes
Cardiovascular: Pedal edema is absent, JVD pressure is normal, Rhythm/rate is irregular, S1S2 is normal and Murmur/rub/gallop absent
Respiratory: Respiratory effort normal, Lungs clear to auscul., Wheeze Absent, Crackles Absent and Rhonchi Absent
GI: Soft, Distention absent, Flat, Non tender, Normal bowel sounds and Distention present
Neuro/Psych: AO x 3
Other: Cath Site (Right radial/antecubital access sites are C/D/I.)
Data Reviewed
-
Date of Service: April 27, 2024
Medical Decision Making: Reviewed Test Results, Independent Historian Assessment, Test Interpretation and Review of Case with other Provider
EKG: Tracing Personally Visualized and interpreted and Report Reviewed by me
Echo: Tracing Personally Visualized and interpreted and Report Reviewed by me
X-Ray/CT/US/MRI/NUC/PET: Image Personally Visualized and interpreted, Report Reviewed by me, Discussed with Physician, Discussed with Patient and Discussed with Family
Medical Tests (PFT, Pathology etc): Image Personally Visualized and interpreted, Report Reviewed by me, Discussed with Physician, Discussed with Patient and Discussed with Family
Labs: Labs Reviewed by me
Old Records: Reviewed
[2024-04-27] MEDS: COZAAR 25 MG PO (09:28)
[2024-04-27] MEDS: LASIX 40 MG IV ×2 (09:29→16:35)
[2024-04-27] MEDS: LOW STRENGTH ASPIRIN 81 MG PO (09:30)
[2024-04-27] MEDS: LYRICA 150 MG PO ×2 (09:31→20:08)
[2024-04-27] MEDS: COLACE 100 MG PO ×2 (09:32→20:08)
[2024-04-27] MEDS: MIRALAX 17 GRAMS PO (09:32)
[2024-04-27] MEDS: SENOKOT 17.1999999999999993 MG PO ×2 (09:32→20:08)
[2024-04-27] MEDS: FARXIGA 10 MG PO (09:33)
[2024-04-27] MEDS: FLUSH (NSS) 2 FLUSH IV (09:33)
--- NOTE | 2024-04-27 10:59 | PTCARENOTE ---
Received patient this morning resting in bed, IV heparin infusing at 1100 units/hr, PTT at therapeutic level. Dr. Patino added farxiga to the patient's medications, notified him of patient's decreased urine output despite IV lasix and low heart
rates, no additional changes with his current medications as per Dr. Patino. Awaiting transfer to [facility].
[2024-04-27] MEDS: LYRICA 75 MG PO (13:09)
--- NOTE | 2024-04-27 14:31 | W.PN.HOSP.TC ---
Today's Communication/Plan
-
increase statin
iv lasix
hep ggt
pending transfer [facility]
Assessment / Plan
Assessment / Plan
Physical Exam
Constitutional: No acute distress and Comfortable
EENT: Anicteric and Moist mucous membranes
Cardiovascular: Pedal edema is absent, JVD pressure is normal, Rhythm/rate is irregular, S1S2 is normal and Murmur/rub/gallop absent
Respiratory: Respiratory effort normal, Lungs clear to auscul., Wheeze Absent, Crackles Absent and Rhonchi Absent
GI: Soft, Distention absent, Flat, Non tender, Normal bowel sounds and Distention present
Neuro/Psych: AO x 3
Other: Cath Site (Right radial/antecubital access sites are C/D/I.)
73-year-old sent in to the ER from by the cardiology team for admission due to CHF exacerbation despite medication changes at home in the past week with increasing shortness of breath and lower extremity edema in the last week with a weight gain of
approximately 15 pounds.
He has a longstanding history of chronic cardiac issues that include coronary artery disease with multiple stents along with permanent atrial fibrillation on Eliquis and a history of tetralogy of Fallot with VSD repair when much younger apparently
may have a history of bifascicular block but a left bundle branch block seen on EKG is remarkably new according to cardiology and now will be admitted with cardiology consultation and electrophysiology input. Patient's proBNP is 2800 prior it had
been about 680/presently undergoing 2D echocardiogram at bedside in the ED and chest x-ray results pending but look to be consistent with vascular edema.
Past Medical History: Reports Arrhythmia (Permanent atrial fibrillation), CAD (2 stents 1 to the LAD in 2006 another 1 to the RCA in 2019), Cancer (CML on), HTN and Valvular Disease (VSD repair and tetralogy of Fallot by history)
Past Surgical History: Reports Cardiac
Echo 624-LV systolic function 55 to 60%. Wall motion consistent with conduction abnormality. Enlarged RV. Severely dilated LA. Severely dilated RA. Aortic sclerosis without stenosis. Mild TR. Pulmonary pressure of 30 to 35 mmHg. Mild
pulmonary stenosis. Trace pulmonary regurgitation.
CVS: S1-S2 irregular, systolic murmur apex, right heart border
Chest: Rales bilaterally
Abdomen: Soft, NT / Bowel sounds present
Extremities: Bilateral pedal edema
STUDY COORDINATOR: Non focal exam
#Acute heart failure with preserved ejection fraction
-Weight gain and orthopnea
-Continue Lasix IV 40 mg twice daily
-Losartan 25 mg p.o. daily
-Cath04/25/24- Right dominant circulation with severe, multivessel coronary disease including a 60-70% lesion in the distal aspect of the left main coronary artery,Top normal to mildly elevated filling pressures Wedge 15 mm Hg,Severe, 3+ mitral valve
regurgitation.Severely depressed cardiac function,Preserved LV systolic function, EF 65 %
-CT surgery evaluated-recommending adult congenital referral for consultation and intervention-possibly [facility]
# Bifascicular block-intermittent
-Based on cardiology record new left bundle branch block
-Will probably require pacemaker insertion ?
-? Continue BB
-EP consultation
#Permanent atrial fibrillation
-History of ablation
-Rate management with metoprolol succinate 12.5 at at bedtime
-On chronic apixaban which is on hold-patient on heparin drip
#Coronary artery disease by history
-LAD stent, RCA stent
-Continue aspirin , increased statin
-Hold Plavix in anticipation of surgery
# Hyperlipidemia-statin
#Chronic pain-narcotic dependent
-Continue patient is on morphine pump at prior settings/as pharmacy verifies just refilled last week
-Continue pregabalin
-Duloxetine
#Trigeminal neuralgia
#Compression fracture L1
# Sleep apnea-CPAP
# Gout and arthritis
#Prior history of chronic myelogenous leukemia
#Prior history of tetralogy of Fallot with VSD repair at [facility]
#DVT prophylaxis on apixaban and venous pump
#DNR/DNI/acknowledged by spouse at bedside
Discussed with Cardiology in detail
Discussed with nursing
Total time spent on today's encounter was 50 minutes which included time spent in counseling the patient/family regarding diagnosis and treatment plan as listed above, goals of care, and symptom management. Case was discussed with nursing staff,
specialists, and care coordinators/case management. All labs and imaging personally reviewed by me. Remainder the time spent in detailed review of previous records, lab data, imaging, and other medical provider documentation.
Anticipated Discharge: Within 24 hours
Subjective/Interval History
-
Date of Service: April 27, 2024
No acute events
Objective Data
-
Labs:
Laboratory Results
04/27/24
04:32
WBC 10.0
Hgb 14.2
Hct 40.0
Plt Count 140
APTT 106.2 H
Sodium 135
Potassium 4.0
Chloride 102
Carbon Dioxide 26
BUN 34 H
Creatinine 0.8
Glucose 150 H
Calcium 9.2
Vital Signs:
Vital Signs
Temp Pulse Resp BP Pulse Ox
97.5 F 51 20 108/61 95
04/27/24 11:01 04/27/24 13:00 04/27/24 11:01 04/27/24 11:04 04/27/24 11:04
I&O
04/26/24 04/27/24 04/28/24
06:59 06:59 06:59
Intake Total 1212 / 1212 960 / 960 480 / 480
Output Total 2049 925 / 925 750 / 750
Balance -838 / -838 35 / 35 -270 / -270
Review of Systems
-
All other systems: Reviewed and negative
Constitutional: Reports Fatigue
Respiratory: Reports No Symptoms
Cardiac: Denies Chest Pain
Abdomen/GI: Reports No Symptoms
Data Reviewed
-
Total Time Spent with Patient (in minutes): 56
Medical Tests (Nuc Med, Echo etc): Report Reviewed by me (Reviewed report of repeat 2D echocardiogram now showing rt ventricular dilatation with intact systolic function dilated atria EF unchanged)
Labs: Labs Reviewed by me
[2024-04-27] MEDS: HEPARIN 25000 UNITS/250 ML IV (16:38)
[2024-04-27] MEDS: TOPROL XL 12.5 MG PO (22:16)
[2024-04-27] MEDS: CYMBALTA DELAYED RELEASE 30 MG PO (22:16)
[2024-04-27] MEDS: LIPITOR 40 MG PO (22:16)
[2024-04-28] VITALS (8 sets, daily range): BP systolic 90–120; BP diastolic 52–74; BMI 28.8
[2024-04-28 05:18] LABS: Hematocrit 40.8 % (39.0-52.0); Hemoglobin 14.4 g/dL (13.0-18.0); Mean Corp Hgb Conc. 35.3 g/dL (33.0-37.0); Mean Corpuscular Hgb 32.2 pg (27.0-31.0); Mean Corpuscular Volume 91.3 fL (80.0-94.0); Mean Platelet Volume 10.1 fL (7.4-10.4); Platelet Count 142 10^3/uL (130-400); Red Blood Cell Count 4.47 10^6/uL (4.70-6.10); Red Cell Dist. Width 15.1 % (11.5-14.5); White Blood Cell Count 9.7 10^3/uL (4.8-10.8)
[2024-04-28 05:26] LABS: APTT 144.1 Sec (23.4-35.0)
[2024-04-28 05:55] LABS: ALT (SGPT) 19 U/L (0-50); AST (SGOT) 27 U/L (17-59); Albumin 3.5 g/dl (3.5-5.0); Alkaline Phosphatase 55 U/L (38-126); Blood Urea Nitrogen 28 mg/dl (9-20); Calcium 9.4 mg/dl (8.4-10.2); Carbon Dioxide 23 mmol/L (22-30); Chloride 106 mmol/L (98-107); Estimated Creatinine Clearance 101 ml/min; Glucose 124 mg/dl (70-99); Sodium 137 mmol/L (135-145); Total Bilirubin 1.6 mg/dl (0.2-1.3); Total Protein 5.7 g/dl (6.3-8.2); eGFR > 60.00
--- NOTE | 2024-04-28 08:30 | W.PN.CD ---
Today's Communication / Plan
-
Severe CAD including left main. No angina overngiht. Plan for transfer to [facility] for surgery in this patient iwith congenitial heart disease.
Heart failure has improved. resp status is stable. Decreased lasix to daily.
Bradycardia and alternating bundle as noted prior to admit. Indication for pacing which can be addressed round time f surgery
Stop Beta cloker. Patietn had been on low dose [rior to admit.
Impression / Plan
-
Impression/Plan: 73 y/o male with CAD with LAD stent 2006, RCA stent 2011, LM and D1 stenting 2018, aflutter with hx ablation, tetralogy of Fallot repair, pulmonic stenosis, first degree AVB, bifascicular block, NSVT, CML, HTN, trigeminal neuralgia,
chronic low back pain who is here from the office since he reported SOB, LE edema. Lasix 40 mg daily was attempted as OP, but did not help. Home sats in high 80's at times.
#Acute HFpEF
- improved since admit
-LVEF 65% on LV gram. This did demonstrated severe mitral valve regurgitation.
-LVEDP/PCWP 15 mmHg.
-Limited role for diuresis, especially given enlarged RV, which may be preload dependent.
-Continue losartan and dapaglifozin.
- reduced lasix to daily dosing and monitor BP and labs
#CAD
-Chronic, stable.
-Troponin elevation mild and stuttering, inconsistent with ACS. It is likely due to HFpEF.
-Cardiac catheterization does reveal severe, complex CAD, not amenable to percutaneous intervention.
-Consultation with CTS. They believe (rightly) that the patient would do best with an ACHD surgeon given his history of ToF repair, severe MR and complex coronary disease.
-Maintain ASA and heparin gtt.
-Increase atorvastatin to 40 mg daily.
-Tentative plan to transfer to [place] on Sunday.
#BRADYCARDIA Cardiac conduction disease:
-Patient with alternating bundle branch block.Indication for pacemaker. Not curerently with indication for temp pacing. patient will ultimately need permanent pac ing with pacer vs ICD around the time of surgery
-Follow telemetry.
-Patient had been on Toprol. stop. No Beta Nayana with conduiction issues
# MR suspected severe based on cath report but echo with only trace MR . Unclear if overestimated/catheter related . Can be reassessed with SANDRA at time of surgery.
.
#Persistent AFIB
-Currently in AF.
-Alternating bundle branch block as noted.
-CHADS2-Vasc = 3 (CHF, Age x1, vascular disease).
-Therapeutic anticoagulation with heparin gtt.
Subjective/Interval History:
No acute events.
No subjective complaints.
DATA:
TTE, 04/25/2024:
CONCLUSIONS
-Left ventricular ejection fraction is 55-60%. Wall motion is consistent with
conduction abnormality.
-Enlarged right ventricular size. Normal right ventricular systolic function.
-Severely dilated left atrium. Severely dilated right atrium.
-Aortic sclerosis without stenosis.
-Mild tricuspid regurgitation. Estimated pulmonary artery pressure of 30-35
mmHg, assuming a right atrial pressure of 3 mmHg.
-Mild pulmonic stenosis; peak/mean gradients are 12/7. Trace pulmonic
regurgitation.
-Mildly dilated aortic root with Sinus of Valsalva measuring 3.9 cm.
Compared to previous echo on 11/16/23, the right ventricle is dilated but the
right ventricular function is normal.
Cardiac Catheterization, 04/25/2024:
CONCLUSIONS:
1. Right dominant circulation with severe, multivessel coronary disease including a 60-70% lesion in the distal aspect of the left main coronary artery, a ACCESS CLINICIAN of a large diagonal, complex, Eason 1, 1, 1 90% lesion in the circumflex/OM1, a 40-50%
lesion in the origin of the second, smaller OM, a patent stent with 70% ISR in the mid RCA, a 70% lesion in a large RV marginal which supplies the distal aspect of the inferior septum and a ACCESS CLINICIAN of the second acute marginal with severe, tandem 80%
lesions in the large posterolateral branch.
2. Top normal to mildly elevated filling pressures (LVEDP = 15 mmHg, PCWP = 15 mmHg at 82.6 kg).
3. Severely depressed cardiac function (cardiac index = 1.37 L/min/m�).
4. Severe, 3+ mitral valve regurgitation.
5. Preserved LV systolic function, LV ejection fraction = 65% with a small apical diverticulum.
6. Severely elevated systemic vascular resistance (2677 dynes*seconds*cm^-5).
7. History of tetralogy of Fallot repair, age 24. No evidence of residual intracardiac shunt.
Physical Exam
Vital Signs/Labs
Vital Signs
Temp Pulse Resp BP Pulse Ox
97.7 F 41 16 115/69 92
04/28/24 06:45 04/28/24 07:00 04/28/24 06:45 04/28/24 06:47 04/28/24 06:47
04/27/24 04/28/24 04/29/24
06:59 06:59 06:59
Actual Weight 84.1 kg
04/28/24 05:02
04/28/24 05:02
APTT 144.1 Sec (23.4-35.0) H 04/28/24 05:02
Magnesium 2.0 mg/dl (1.6-2.3) 04/27/24 04:32
04/24/24
12:59
Ebb-R-Kgbxisucvlx Pept 2800
LAB Results
04/25/24
14:06
Troponin I Cancelled
Physical Exam
Constitutional: No acute distress
Cardiovascular: Rhythm & rate is regular
Respiratory: Respiratory effort normal
GI: Soft
Neuro/Psych: Alert
Data Reviewed
-
Date of Service: April 28, 2024
Medical Decision Making: Reviewed Test Results
Medical Tests (PFT, Pathology etc): Report Reviewed by me
Labs: Labs Reviewed by me
[2024-04-28] MEDS: COLACE PO ×2 (09:51→19:47)
[2024-04-28] MEDS: MIRALAX PO (09:52)
[2024-04-28] MEDS: COZAAR 25 MG PO (09:52)
[2024-04-28] MEDS: LYRICA 150 MG PO ×2 (09:52→19:51)
[2024-04-28] MEDS: SENOKOT PO ×2 (09:52→19:47)
[2024-04-28] MEDS: LOW STRENGTH ASPIRIN 81 MG PO (09:52)
[2024-04-28] MEDS: FARXIGA 10 MG PO (09:53)
[2024-04-28] MEDS: LASIX 40 MG IV (09:55)
[2024-04-28] MEDS: FLUSH (NSS) 2 FLUSH IV (09:56)
--- NOTE | 2024-04-28 10:18 | W.PN.HOSP.TC ---
Today's Communication/Plan
-
Diuresis
Transfer to [facility] underway
Assessment / Plan
Assessment / Plan
73-year-old sent in to the ER from by the cardiology team for admission due to CHF exacerbation despite medication changes at home in the past week with increasing shortness of breath and lower extremity edema in the last week with a weight gain of
approximately 15 pounds.
He has a longstanding history of chronic cardiac issues that include coronary artery disease with multiple stents along with permanent atrial fibrillation on Eliquis and a history of tetralogy of Fallot with VSD repair when much younger apparently
may have a history of bifascicular block but a left bundle branch block seen on EKG is remarkably new according to cardiology and now will be admitted with cardiology consultation and electrophysiology input. Patient's proBNP is 2800 prior it had
been about 680/presently undergoing 2D echocardiogram at bedside in the ED and chest x-ray results pending but look to be consistent with vascular edema.
Past Medical History: Reports Arrhythmia (Permanent atrial fibrillation), CAD (2 stents 1 to the LAD in 2006 another 1 to the RCA in 2019), Cancer (CML on), HTN and Valvular Disease (VSD repair and tetralogy of Fallot by history)
Past Surgical History: Reports Cardiac
Echo 624-LV systolic function 55 to 60%. Wall motion consistent with conduction abnormality. Enlarged RV. Severely dilated LA. Severely dilated RA. Aortic sclerosis without stenosis. Mild TR. Pulmonary pressure of 30 to 35 mmHg. Mild
pulmonary stenosis. Trace pulmonary regurgitation.
CVS: S1-S2 irregular, systolic murmur apex, right heart border
Chest: Rales bilaterally
Abdomen: Soft, NT / Bowel sounds present
Extremities: Bilateral pedal edema
SUPERVISOR METER REPAIR SHOP: Non focal exam
#Acute heart failure with preserved ejection fraction
-Weight gain and orthopnea
-Continue Lasix IV 40 mg daily
-Losartan 25 mg p.o. daily, Farxiga added
-BB stopped due to bradycardia
-Cath04/25/24- Right dominant circulation with severe, multivessel coronary disease including a 60-70% lesion in the distal aspect of the left main coronary artery,Top normal to mildly elevated filling pressures Wedge 15 mm Hg,Severe, 3+ mitral valve
regurgitation.Severely depressed cardiac function,Preserved LV systolic function, EF 65 %
-CT surgery evaluated-recommending adult congenital referral for consultation and intervention-possibly [facility]
# Bifascicular block-intermittent
-Based on cardiology record new left bundle branch block
-Will probably require pacemaker insertion ?
- BB Stopped
#Permanent atrial fibrillation
-History of ablation
-Rate management with metoprolol succinate 12.5 at at bedtime
-On chronic apixaban which is on hold-patient on heparin drip
#Coronary artery disease by history
-LAD stent, RCA stent
-Continue aspirin , increased statin
-Hold Plavix in anticipation of surgery
# Hyperlipidemia-statin
#Chronic pain-narcotic dependent
-Continue patient is on morphine pump at prior settings/as pharmacy verifies just refilled last week
-Continue pregabalin
-Duloxetine
#Trigeminal neuralgia
#Compression fracture L1
# Sleep apnea-CPAP
# Gout and arthritis
#Prior history of chronic myelogenous leukemia
#Prior history of tetralogy of Fallot with VSD repair at [facility]
#DVT prophylaxis on apixaban and venous pump
#DNR/DNI/acknowledged by spouse at bedside
Discussed with at bed side
Discussed with nursing
Anticipated Discharge: > 48 hours
Subjective/Interval History
-
Date of Service: April 28, 2024
Objective Data
-
Labs:
Laboratory Results
04/28/24 04/28/24
05:02 12:30
WBC 9.7
Hgb 14.4
Hct 40.8
Plt Count 142
APTT 144.1 H Pending
Sodium 137
Potassium 4.0
Chloride 106
Carbon Dioxide 23
BUN 28 H
Creatinine 0.6 L
Glucose 124 H
Calcium 9.4
Total Bilirubin 1.6 H
AST 27
ALT 19
Alkaline Phosphatase 55
Vital Signs:
Vital Signs
Temp Pulse Resp BP Pulse Ox
97.7 F 42 16 118/71 92
04/28/24 06:45 04/28/24 09:55 04/28/24 06:45 04/28/24 09:55 04/28/24 06:47
I&O
04/27/24 04/28/24 04/29/24
06:59 06:59 06:59
Intake Total 960 / 960 701 / 701
Output Total 925 / 925 2225 / 2225
Balance 35 / 35 -1524 / -1524
--- NOTE | 2024-04-28 10:36 | PTCARENOTE ---
Patient slept later this morning, feels fatigued and was up early this morning. in now visiting, patient seen by cardiology and hospitalist. Await news about [facility] transfer. Assisted the patient oob to weigh and placed in a wheel chair, sitting
down in the patient lounge with his .
[2024-04-28] MEDS: LYRICA 75 MG PO (12:56)
[2024-04-28 13:24] LABS: APTT 80.6 Sec (23.4-35.0)
--- NOTE | 2024-04-28 13:28 | CM ---
CM following for DC planning needs.
Reviewed initial assessment. Pt. resides w/ spouse in a private, 2 story home. Functionally, patient is indep. at baseline w/ ADLs, mobility.
Met w/ patient, spouse at bedside.
Reviewed plan for transfer to [facility]. Awaiting bed.
Answered all questions; emotional support provided.
Call to [facility], . Spoke w/ [facility], who informs that patient is not on their list to transfer.
Call to CT Surgery ANNEALING OVEN OPERATOR to notify.
Plan: [facility] once bed avail.
--- NOTE | 2024-04-28 15:29 | PTCARENOTE ---
Patient took a nap this afternoon, awake now and assisted oob with rolling walker to chair. Patient is very weak and deconditioned, requiring assist of two to get from lying to sitting position at the side of the bed. Ordering dinner, call [facility] in
reach.
--- NOTE | 2024-04-28 15:56 | W.PN.UPDATE ---
Addendum entered and electronically signed by Taylor Palmer MD 04/28/24 16:54:
Spoke to adult congenital
will accept aND [facility] WILL CALL ME
Original Note:
Update Note
Progress Note Update
CT surgery PA texted me that Dr. Ba has spoken to Dr. Angel at [facility]. I called [facility] Dr. Angel was supposed to call me back. Later on heard from case management that I am supposed to call transfer center again and talk to
per CTS.
I called again and is not available at this time. [place] center willcall back.
--- NOTE | 2024-04-28 17:18 | PTCARENOTE ---
Face sheet faxed to [facility]'s transfer center.
[2024-04-28 19:21] LABS: APTT 87.8 Sec (23.4-35.0)
[2024-04-28] MEDS: HEPARIN 25000 UNITS/250 ML IV (19:51)
--- NOTE | 2024-04-28 21:00 | PTCARENOTE ---
Pt rec'd at change of shift in no distress. Denies sob or cp at this time. Heparin therapeutic at 9000 unit/hr. Rec'd call from [facility], no bed available tonight. report given to transfer center. call [facility] left within reach. Aflutter with BBB in 40's
noted on telemetry.
[2024-04-28] MEDS: LIPITOR 40 MG PO (22:42)
[2024-04-28] MEDS: CYMBALTA DELAYED RELEASE 30 MG PO (22:42)
[2024-04-29] VITALS (10 sets, daily range): BP systolic 84–122; BP diastolic 55–71; BMI 28.7
[2024-04-29 04:54] LABS: Hematocrit 41.5 % (39.0-52.0); Hemoglobin 14.4 g/dL (13.0-18.0); Mean Corp Hgb Conc. 34.7 g/dL (33.0-37.0); Mean Corpuscular Hgb 32.3 pg (27.0-31.0); Mean Platelet Volume 10.5 fL (7.4-10.4); Platelet Count 142 10^3/uL (130-400); Red Blood Cell Count 4.46 10^6/uL (4.70-6.10); Red Cell Dist. Width 15.2 % (11.5-14.5)
[2024-04-29 05:06] LABS: APTT 87.7 Sec (23.4-35.0)
[2024-04-29 05:16] LABS: Blood Urea Nitrogen 27 mg/dl (9-20); Calcium 9.4 mg/dl (8.4-10.2); Carbon Dioxide 26 mmol/L (22-30); Chloride 103 mmol/L (98-107); Estimated Creatinine Clearance 101 ml/min; Glucose 122 mg/dl (70-99); Potassium 4.4 mmol/L (3.5-5.1); Sodium 135 mmol/L (135-145); eGFR > 60.00
--- NOTE | 2024-04-29 08:43 | W.PN.HOSP.TC ---
Addendum entered and electronically signed by Taylor Palmer MD 05/04/24 07:39:
Bilateral heels stage 1 PI
Original Note:
Today's Communication/Plan
-
Consider changing Lasix to PO today if Ok with cards also
Heparin gtt renewed.
Awaiting a bed at [facility]
Assessment / Plan
Assessment / Plan
73-year-old sent in to the ER from by the cardiology team for admission due to CHF exacerbation despite medication changes at home in the past week with increasing shortness of breath and lower extremity edema in the last week with a weight gain of
approximately 15 pounds.
He has a longstanding history of chronic cardiac issues that include coronary artery disease with multiple stents along with permanent atrial fibrillation on Eliquis and a history of tetralogy of Fallot with VSD repair when much younger apparently
may have a history of bifascicular block but a left bundle branch block seen on EKG is remarkably new according to cardiology and now will be admitted with cardiology consultation and electrophysiology input. Patient's proBNP is 2800 prior it had
been about 680/presently undergoing 2D echocardiogram at bedside in the ED and chest x-ray results pending but look to be consistent with vascular edema.
Past Medical History: Reports Arrhythmia (Permanent atrial fibrillation), CAD (2 stents 1 to the LAD in 2006 another 1 to the RCA in 2019), Cancer (CML on), HTN and Valvular Disease (VSD repair and tetralogy of Fallot by history)
Past Surgical History: Reports Cardiac
Echo 624-LV systolic function 55 to 60%. Wall motion consistent with conduction abnormality. Enlarged RV. Severely dilated LA. Severely dilated RA. Aortic sclerosis without stenosis. Mild TR. Pulmonary pressure of 30 to 35 mmHg. Mild
pulmonary stenosis. Trace pulmonary regurgitation.
CVS: S1-S2 irregular, systolic murmur apex, right heart border, Av
Chest: Rales bilaterally
Abdomen: Soft, NT / Bowel sounds present
Extremities: no edema today
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
#Acute heart failure with preserved ejection fraction
-Weight gain and orthopnea
-Continue Lasix IV 40 mg daily
-Losartan 25 mg p.o. daily, Farxiga added
-BB stopped due to bradycardia
-Cath04/25/24- Right dominant circulation with severe, multivessel coronary disease including a 60-70% lesion in the distal aspect of the left main coronary artery,Top normal to mildly elevated filling pressures Wedge 15 mm Hg,Severe, 3+ mitral valve
regurgitation.Severely depressed cardiac function,Preserved LV systolic function, EF 65 %
-Spoke to [place] transfer center twice yesterday . [facility] called me back said will accept .
-Called transfer center . awaiting a bed at this point.
-Transfer forms signed by the patient.
# Bifascicular block-intermittent
-Based on cardiology record new left bundle branch block
-Will probably require pacemaker insertion ?
-BB Stopped
#Permanent atrial fibrillation
-History of ablation
-Rate management with metoprolol succinate 12.5 at at bedtime
-On chronic apixaban which is on hold-patient on heparin drip
#Coronary artery disease by history
-LAD stent, RCA stent
-Continue aspirin , increased statin
-Hold Plavix in anticipation of surgery
# Hyperlipidemia-statin
#Chronic pain-narcotic dependent
-Continue patient is on morphine pump at prior settings/as pharmacy verifies just refilled last week
-Continue pregabalin
-Duloxetine
#Trigeminal neuralgia
#Compression fracture L1
# Sleep apnea-CPAP
# Gout and arthritis
#Prior history of chronic myelogenous leukemia
#Prior history of tetralogy of Fallot with VSD repair at [facility]
#DVT prophylaxis on apixaban and venous pump
#DNR/DNI
Spoke to transfer center today. Awaiting a bed.
Discussed with nursing
Transfer forms signed
Time more than 50 min
Anticipated Discharge: Within 24 hours
Subjective/Interval History
-
Date of Service: April 29, 2024
Objective Data
-
Labs:
Laboratory Results
04/29/24
04:17
WBC 10.0
Hgb 14.4
Hct 41.5
Plt Count 142
APTT 87.7 H
Sodium 135
Potassium 4.4
Chloride 103
Carbon Dioxide 26
BUN 27 H
Creatinine 0.6 L
Glucose 122 H
Calcium 9.4
Vital Signs:
Vital Signs
Temp Pulse Resp BP Pulse Ox
97.6 F 84 16 122/69 94
04/29/24 07:21 04/29/24 07:21 04/29/24 07:21 04/29/24 07:21 04/29/24 07:21
I&O
04/28/24 04/29/24 04/30/24
06:59 06:59 06:59
Intake Total 701 / 701 800 / 800
Output Total 2225 / 2225 650 / 650
Balance -1524 / -1524 150 / 150
[2024-04-29] MEDS: LASIX 40 MG IV (09:00)
[2024-04-29] MEDS: MIRALAX PO (09:01)
[2024-04-29] MEDS: SENOKOT PO ×2 (09:01→20:47)
[2024-04-29] MEDS: COLACE PO ×2 (09:01→20:46)
[2024-04-29] MEDS: LYRICA 150 MG PO ×2 (09:01→20:46)
[2024-04-29] MEDS: COZAAR 25 MG PO (09:02)
[2024-04-29] MEDS: FARXIGA 10 MG PO (09:02)
[2024-04-29] MEDS: LOW STRENGTH ASPIRIN 81 MG PO (09:02)
--- NOTE | 2024-04-29 09:37 | PTCARENOTE ---
received patient this am in bed, patient able to use walker with assist x 2 to get OOB, walk into BR for am care and then return to chair. patient is very stiff when first getting OOB. monitor shows Aflutter, IV heparin drip remains on at 900
units/hr via right arm without difficulties. patient voices no concerns at this time. patient will be transferred to [facility] when bed is available. [facility] transfer center did call this am for update.
--- NOTE | 2024-04-29 11:09 | CM ---
CM following for DC planning needs.
Met w/ patient and spouse at bedside.
Pt. continues to await transfer to [facility]. Emotional support provided.
Plan: Transfer to [facility]
CM will remain avail.
[2024-04-29] MEDS: LYRICA 75 MG PO (12:33)
--- NOTE | 2024-04-29 15:10 | PN.CDI ---
CDI
- -
CDI:
Physician Documentation Request
Admit Date: 04/24/24 18:14
Dear Doctor Estela,
Patient admitted with acute heart failure with preserved ejection fraction.
04/25 N note, 'Bilateral heels with stage 1 PI.'
Physician documentation of the type and location of wounds is required for compliant documentation. Based on the above clinical findings and your assessment, please provide the following in your progress note:
Type (etiology) of ulcer/wound:
- Diabetic ulcer
- Arterial (ischemic) ulcer
- Traumatic wound
- Venous stasis ulcer
- Pressure (decubitus) ulcer
- Non-healing surgical wound
- Other
- Unable to determine
For a pressure ulcer, please also include the stage* of the ulcer:
- Stage 1 - Skin intact, non-blanchable redness
- Stage 2 - Partial thickness loss of dermis, includes intact or open blister
- Stage 3 - Full thickness tissue not including bone, tendon or muscle
- Stage 4 - Full thickness tissue loss, including exposed bone, tendon or muscle
- Unstageable - Full thickness loss in which the base of the ulcer is covered by slough (yellow, alan, kilgore, green or brown) and/or eschar (alan, brown or black) in the wound bed.
- Unable to determine
Use of terms such as suspected, likely, concern for, or probable (associated with a specific diagnosis that is being evaluated, monitored, or treated as if it exists) are acceptable and can be coded in the inpatient setting, when documented at the
time of discharge.
Thank you,
Reema CARR,RN,CCDS
CDI Specialist
Available via [facility] text
Please use your independent medical judgment in providing your response.
*Source: National Pressure Ulcer Advisory Panel (NPUAP)
--- NOTE | 2024-04-29 15:39 | PTCARENOTE ---
patient ambulating in hallway with assist of 1 and walker, susana. xena. at bedside. still waiting for bed at [facility].
--- NOTE | 2024-04-29 16:01 | W.PN.CD ---
Addendum entered and electronically signed by Bob Enciso MD 04/29/24 16:43:
I saw and examined the patient.
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
Comment: His biggest complaint is wanting to get out of bed. no cp or sob. on exam lungs are cta, systolic murmur, ext wwp without edema. Agree with transition to po lasix. Continue to monitor in the IVU until transfer given significant active
cardiac comorbidities and electrical instability.
Original Note:
Today's Communication / Plan
-
Transition to oral furosemide
Impression / Plan
-
Impression/Plan: 73 y/o male with CAD with LAD stent 2006, RCA stent 2011, LM and D1 stenting 2018, aflutter with hx ablation, tetralogy of Fallot repair, pulmonic stenosis, first degree AVB, bifascicular block, NSVT, CML, HTN, trigeminal neuralgia,
chronic low back pain who is here from the office since he reported SOB, LE edema. Lasix 40 mg daily was attempted as OP, but did not help. Home sats in high 80's at times.
#Acute HFpEF
-Improved since admit
-LVEF 65% on LV gram. This did demonstrated severe mitral valve regurgitation.
-LVEDP/PCWP 15 mmHg.
-Limited role for diuresis, especially given enlarged RV, which may be preload dependent.
-Continue losartan and dapagliflozin.
-Transition to furosemide 40mg PO daily
#CAD
-Chronic, stable.
-Troponin elevation mild and stuttering, inconsistent with ACS. It is likely due to HFpEF.
-Cardiac catheterization does reveal severe, complex CAD, not amenable to percutaneous intervention.
-Consultation with CTS. They believe (rightly) that the patient would do best with an ACHD surgeon given his history of ToF repair, severe MR and complex coronary disease.
-Maintain ASA and heparin gtt.
-Increase atorvastatin to 40 mg daily.
-Awaiting transfer to [facility]
#BRADYCARDIA Cardiac conduction disease:
-Patient with alternating bundle branch block. Indication for pacemaker. Not currently with indication for temp pacing. Patient will ultimately need permanent pacing with pacer vs ICD around the time of surgery
-Follow telemetry.
-Patient had been on Toprol, stopped (no beta tess with conduction issues)
# M
-Suspected severe based on cath report but echo with only trace MR. Unclear if overestimated/catheter related.
-Can be reassessed with SANDRA at time of surgery.
.
#Persistent atrial fibrillation
-Currently in AF.
-Alternating bundle branch block as noted.
-CHADS2-Vasc = 3 (CHF, Age x1, vascular disease).
-Therapeutic anticoagulation with heparin gtt.
Subjective/Interval History:
No acute events.
No subjective complaints.
DATA:
TTE, 04/25/2024:
CONCLUSIONS
-Left ventricular ejection fraction is 55-60%. Wall motion is consistent with
conduction abnormality.
-Enlarged right ventricular size. Normal right ventricular systolic function.
-Severely dilated left atrium. Severely dilated right atrium.
-Aortic sclerosis without stenosis.
-Mild tricuspid regurgitation. Estimated pulmonary artery pressure of 30-35
mmHg, assuming a right atrial pressure of 3 mmHg.
-Mild pulmonic stenosis; peak/mean gradients are 12/7. Trace pulmonic
regurgitation.
-Mildly dilated aortic root with Sinus of Valsalva measuring 3.9 cm.
Compared to previous echo on 11/16/23, the right ventricle is dilated but the
right ventricular function is normal.
Cardiac Catheterization, 04/25/2024:
CONCLUSIONS:
1. Right dominant circulation with severe, multivessel coronary disease including a 60-70% lesion in the distal aspect of the left main coronary artery, a SUTURE WINDER HAND of a large diagonal, complex, Eason 1, 1, 1 90% lesion in the circumflex/OM1, a 40-50%
lesion in the origin of the second, smaller OM, a patent stent with 70% ISR in the mid RCA, a 70% lesion in a large RV marginal which supplies the distal aspect of the inferior septum and a SUTURE WINDER HAND of the second acute marginal with severe, tandem 80%
lesions in the large posterolateral branch.
2. Top normal to mildly elevated filling pressures (LVEDP = 15 mmHg, PCWP = 15 mmHg at 82.6 kg).
3. Severely depressed cardiac function (cardiac index = 1.37 L/min/m�).
4. Severe, 3+ mitral valve regurgitation.
5. Preserved LV systolic function, LV ejection fraction = 65% with a small apical diverticulum.
6. Severely elevated systemic vascular resistance (2677 dynes*seconds*cm^-5).
7. History of tetralogy of Fallot repair, age 24. No evidence of residual intracardiac shunt.
Physical Exam
Vital Signs/Labs
Vital Signs
Temp Pulse Resp BP Pulse Ox
97.4 F 43 20 100/61 93
04/29/24 15:59 04/29/24 15:00 04/29/24 15:59 04/29/24 11:05 04/29/24 15:59
04/28/24 04/29/24 04/30/24
06:59 06:59 06:59
Actual Weight 83.3 kg 83.1 kg
04/29/24 04:17
04/29/24 04:17
APTT 87.7 Sec (23.4-35.0) H 04/29/24 04:17
Magnesium 2.0 mg/dl (1.6-2.3) 04/27/24 04:32
04/24/24
12:59
Ldc-E-Hruahjihbis Pept 2800
Physical Exam
Constitutional: No acute distress and Comfortable
EENT: Anicteric and Moist mucous membranes
Cardiovascular: Rhythm & rate is regular and S1S2 is normal
Respiratory: Respiratory effort normal and Lungs clear to auscul.
GI: Soft, Distention absent, Flat, Non tender and Normal bowel sounds
Neuro/Psych: AO x 3
Other: Skin (warm and dry)
Data Reviewed
-
Date of Service: April 29, 2024
Labs: Labs Reviewed by me
[2024-04-29] MEDS: LIPITOR 40 MG PO (20:47)
[2024-04-29] MEDS: CYMBALTA DELAYED RELEASE 30 MG PO (20:47)
[2024-04-29] MEDS: HEPARIN 25000 UNITS/250 ML IV (22:16)
--- NOTE | 2024-04-29 23:44 | PTCARENOTE ---
No complaints of any CP/discomfort, A-fib/flutter in the 40's on the monitor. Heparin gtt infusing at 900 units/hr. Updates provided to transfer center (they called at 2230) - bed at [facility] is still not available at this time.
[2024-04-30] VITALS (7 sets, daily range): BP systolic 90–140; BP diastolic 51–67; BMI 28.1
[2024-04-30 05:03] LABS: APTT 84.9 Sec (23.4-35.0)
[2024-04-30 05:15] LABS: Blood Urea Nitrogen 27 mg/dl (9-20); Calcium 9.7 mg/dl (8.4-10.2); Carbon Dioxide 25 mmol/L (22-30); Chloride 101 mmol/L (98-107); Estimated Creatinine Clearance 87 ml/min; Glucose 129 mg/dl (70-99); Potassium 4.2 mmol/L (3.5-5.1); Sodium 134 mmol/L (135-145); eGFR > 60.00
--- NOTE | 2024-04-30 08:54 | W.PN.CD ---
Today's Communication / Plan
-
continue current therapy
plan for transfer to [facility]
Impression / Plan
-
Impression/Plan: 73 y/o male with CAD with LAD stent 2006, RCA stent 2011, LM and D1 stenting 2018, aflutter with hx ablation, tetralogy of Fallot repair, pulmonic stenosis, first degree AVB, bifascicular block, NSVT, CML, HTN, trigeminal neuralgia,
chronic low back pain who is here from the office since he reported SOB, LE edema. Lasix 40 mg daily was attempted as OP, but did not help. Home sats in high 80's at times.
#Acute HFpEF
-Improved since admit
-LVEF 65% on LV gram. This did demonstrated severe mitral valve regurgitation.
-LVEDP/PCWP 15 mmHg.
-Limited role for diuresis, especially given enlarged RV, which may be preload dependent.
-Continue losartan and dapagliflozin.
-Transition to furosemide 40mg PO daily
#CAD
-Chronic, stable.
-Troponin elevation mild and stuttering, inconsistent with ACS. It is likely due to HFpEF.
-Cardiac catheterization does reveal severe, complex CAD, not amenable to percutaneous intervention.
-Consultation with CTS. They believe (rightly) that the patient would do best with an ACHD surgeon given his history of ToF repair, severe MR and complex coronary disease.
-Maintain ASA and heparin gtt.
atorvastatin to 40 mg daily.
-Awaiting transfer to [place]
#BRADYCARDIA Cardiac conduction disease:
-Patient with alternating bundle branch block. Indication for pacemaker. Not currently with indication for temp pacing. Patient will ultimately need permanent pacing with pacer vs ICD around the time of surgery
-Follow telemetry.
-Patient had been on Toprol, stopped (no beta tess with conduction issues)
# MR
-Suspected severe based on cath report but echo with only trace MR. Unclear if overestimated/catheter related.
-Can be reassessed with SANDRA at time of surgery.
.
#Persistent atrial fibrillation
-Currently in AF.
-Alternating bundle branch block as noted.
-CHADS2-Vasc = 3 (CHF, Age x1, vascular disease).
-Therapeutic anticoagulation with heparin gtt.
Subjective/Interval History:
No acute events.
No subjective complaints.
DATA:
TTE, 04/25/2024:
CONCLUSIONS
-Left ventricular ejection fraction is 55-60%. Wall motion is consistent with
conduction abnormality.
-Enlarged right ventricular size. Normal right ventricular systolic function.
-Severely dilated left atrium. Severely dilated right atrium.
-Aortic sclerosis without stenosis.
-Mild tricuspid regurgitation. Estimated pulmonary artery pressure of 30-35
mmHg, assuming a right atrial pressure of 3 mmHg.
-Mild pulmonic stenosis; peak/mean gradients are 12/7. Trace pulmonic
regurgitation.
-Mildly dilated aortic root with Sinus of Valsalva measuring 3.9 cm.
Compared to previous echo on 11/16/23, the right ventricle is dilated but the
right ventricular function is normal.
Cardiac Catheterization, 04/25/2024:
CONCLUSIONS:
1. Right dominant circulation with severe, multivessel coronary disease including a 60-70% lesion in the distal aspect of the left main coronary artery, a GIS ANALYST DEVELOPER of a large diagonal, complex, Eason 1, 1, 1 90% lesion in the circumflex/OM1, a 40-50%
lesion in the origin of the second, smaller OM, a patent stent with 70% ISR in the mid RCA, a 70% lesion in a large RV marginal which supplies the distal aspect of the inferior septum and a GIS ANALYST DEVELOPER of the second acute marginal with severe, tandem 80%
lesions in the large posterolateral branch.
2. Top normal to mildly elevated filling pressures (LVEDP = 15 mmHg, PCWP = 15 mmHg at 82.6 kg).
3. Severely depressed cardiac function (cardiac index = 1.37 L/min/m�).
4. Severe, 3+ mitral valve regurgitation.
5. Preserved LV systolic function, LV ejection fraction = 65% with a small apical diverticulum.
6. Severely elevated systemic vascular resistance (2677 dynes*seconds*cm^-5).
7. History of tetralogy of Fallot repair, age 24. No evidence of residual intracardiac shunt.
Physical Exam
Vital Signs/Labs
Vital Signs
Temp Pulse Resp BP Pulse Ox
98 F 42 18 115/60 94
04/30/24 07:05 04/30/24 07:08 04/30/24 07:05 04/30/24 07:08 04/30/24 07:08
04/29/24 04/30/24 05/01/24
06:59 06:59 06:59
Actual Weight 83.1 kg
04/29/24 04:17
04/30/24 04:28
APTT 84.9 Sec (23.4-35.0) H 04/30/24 04:28
Magnesium 2.0 mg/dl (1.6-2.3) 04/27/24 04:32
04/24/24
12:59
Scn-G-Ajhjwtcpnhw Pept 2800
Physical Exam
Constitutional: No acute distress
EENT: Anicteric
Cardiovascular: Rhythm & rate is regular and Systolic murmur present
Respiratory: Respiratory effort normal, Wheeze Absent and Crackles Absent
GI: Soft
Neuro/Psych: Alert
Other: Skin
Data Reviewed
-
Date of Service: April 30, 2024
Medical Decision Making: Reviewed Test Results
EKG: Report Reviewed by me
X-Ray/CT/US/MRI/NUC/PET: Report Reviewed by me
Labs: Labs Reviewed by me
--- NOTE | 2024-04-30 10:04 | WOUNDNOTE ---
WON RN NOTE: Dressings changed on heels, L heel fissure appears smaller, painful only to touch, silicone foams applied. R lower leg macule appears dryer and smaller, small silicone foam in use. Legs elevated currently on recliner chair. Patient
waiting for bed availability at [facility]. Will sign off.
[2024-04-30] MEDS: LOW STRENGTH ASPIRIN 81 MG PO (10:07)
[2024-04-30] MEDS: COZAAR 25 MG PO (10:07)
[2024-04-30] MEDS: FARXIGA 10 MG PO (10:07)
[2024-04-30] MEDS: SENOKOT PO ×2 (10:08→19:40)
[2024-04-30] MEDS: LASIX 40 MG PO (10:08)
[2024-04-30] MEDS: LYRICA 150 MG PO ×2 (10:08→19:30)
[2024-04-30] MEDS: MIRALAX PO (10:08)
[2024-04-30] MEDS: COLACE PO ×2 (10:08→19:40)
[2024-04-30] MEDS: TYLENOL 650 MG PO (10:10)
--- NOTE | 2024-04-30 11:03 | CM ---
CM following for DC planning needs.
Met w/ patient, spouse at bedside. Emotional support provided.
Pt. continues to await bed at [facility] and transfer.
PLAN: [facility] transfer
CM will cont. to follow.
[2024-04-30] MEDS: LYRICA 75 MG PO (13:06)
--- NOTE | 2024-04-30 15:46 | W.PN.HOSP.TC ---
Today's Communication/Plan
-
Continue current cardiovascular regimen including oral Lasix
Continue IV heparin drip.
Pending transfer to [facility]
Assessment / Plan
Assessment / Plan
73-year-old sent in to the ER from by the cardiology team for admission due to CHF exacerbation despite medication changes at home in the past week with increasing shortness of breath and lower extremity edema in the last week with a weight gain of
approximately 15 pounds.
He has a longstanding history of chronic cardiac issues that include coronary artery disease with multiple stents along with permanent atrial fibrillation on Eliquis and a history of tetralogy of Fallot with VSD repair when much younger apparently
may have a history of bifascicular block but a left bundle branch block seen on EKG is remarkably new according to cardiology and now will be admitted with cardiology consultation and electrophysiology input. Patient's proBNP is 2800 prior it had
been about 680/presently undergoing 2D echocardiogram at bedside in the ED and chest x-ray results pending but look to be consistent with vascular edema.
Past Medical History: Reports Arrhythmia (Permanent atrial fibrillation), CAD (2 stents 1 to the LAD in 2006 another 1 to the RCA in 2019), Cancer (CML on), HTN and Valvular Disease (VSD repair and tetralogy of Fallot by history)
Past Surgical History: Reports Cardiac
Echo 624-LV systolic function 55 to 60%. Wall motion consistent with conduction abnormality. Enlarged RV. Severely dilated LA. Severely dilated RA. Aortic sclerosis without stenosis. Mild TR. Pulmonary pressure of 30 to 35 mmHg. Mild
pulmonary stenosis. Trace pulmonary regurgitation.
CVS: S1-S2 irregular, systolic murmur apex, right heart border, Av
Chest: Rales bilaterally
Abdomen: Soft, NT / Bowel sounds present
Extremities: no edema today
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
#Acute heart failure with preserved ejection fraction
-Weight gain and orthopnea
-Initially on IV diuresis, Lasix transition to oral on 04/29
-Losartan 25 mg p.o. daily, Farxiga added
-BB stopped due to bradycardia
-Cath6/7/24- Right dominant circulation with severe, multivessel coronary disease including a 60-70% lesion in the distal aspect of the left main coronary artery,Top normal to mildly elevated filling pressures Wedge 15 mm Hg,Severe, 3+ mitral valve
regurgitation.Severely depressed cardiac function,Preserved LV systolic function, EF 65 %
-Spoke to [facility] twice yesterday . [facility] called me back said will accept .
-Called transfer center . awaiting a bed at this point.
-Transfer forms signed by the patient.
# Bifascicular block-intermittent
-Based on cardiology record new left bundle branch block
-Will probably require pacemaker insertion ?
-BB Stopped
#Permanent atrial fibrillation
-History of ablation
-Rate management with metoprolol succinate 12.5 at at bedtime
-On chronic apixaban which is on hold-patient on heparin drip
#Coronary artery disease by history
-LAD stent, RCA stent
-Continue aspirin , increased statin
-Hold Plavix in anticipation of surgery
# Hyperlipidemia-statin
#Chronic pain-narcotic dependent
-Continue patient is on morphine pump at prior settings/as pharmacy verifies just refilled last week
-Continue pregabalin
-Duloxetine
#Trigeminal neuralgia
#Compression fracture L1
# Sleep apnea-CPAP
# Gout and arthritis
#Prior history of chronic myelogenous leukemia
#Prior history of tetralogy of Fallot with VSD repair at [facility]
#DVT prophylaxis on apixaban and venous pump
#DNR/DNI
Spoke to transfer center today. Awaiting a bed.
Discussed with nursing
Transfer forms signed
Time more than 50 min
Anticipated Discharge: 24 - 48 hours
Subjective/Interval History
-
Date of Service: April 30, 2024
Objective Data
-
Labs:
Laboratory Results
04/30/24
04:28
APTT 84.9 H
Sodium 134 L
Potassium 4.2
Chloride 101
Carbon Dioxide 25
BUN 27 H
Creatinine 0.7
Glucose 129 H
Calcium 9.7
Vital Signs:
Vital Signs
Temp Pulse Resp BP Pulse Ox
97.5 F 45 20 101/59 93
04/30/24 15:08 04/30/24 15:07 04/30/24 15:08 04/30/24 15:07 04/30/24 15:08
I&O
04/29/24 04/30/24 05/01/24
06:59 06:59 06:59
Intake Total 800 / 800 108 / 108
Output Total 650 / 650 2175 / 2175 200 / 200
Balance 150 / 150 -2067 / -2067 -200 / -200
Physical Exam
-
General: Well Developed
HEENT: Normocephalic
Respiratory: Clear to Auscultation
Cardiac: Bradycardic (In the 40s with underlying A-fib)
GI: Soft
Musculoskeletal: Edema, Right Lower Extrem and Edema, Left Lower Extrem
Skin: Warm
Neuro: Awake, Alert and Oriented
[2024-04-30] MEDS: LIPITOR 40 MG PO (22:07)
[2024-04-30] MEDS: CYMBALTA DELAYED RELEASE 30 MG PO (22:07)
--- NOTE | 2024-04-30 22:43 | PTCARENOTE ---
Addendum entered by Antolin Rock RN 04/30/24 22:46:
Heparin infusing at 900units/hr.
Original Note:
Pt received at start of shift, HR a-flutter w/ BBB. Pt updated on plan of care, pt states understanding. Pt denies any CP, SOB, or lightheadedness/dizziness at this time. Informed to notify RN if any changes, call barone within reach.
[2024-05-01] VITALS (7 sets, daily range): BP systolic 89–146; BP diastolic 56–75; BMI 28.0
[2024-05-01 03:18] LABS: Hematocrit 39.2 % (39.0-52.0); Hemoglobin 14.2 g/dL (13.0-18.0); Mean Corp Hgb Conc. 36.2 g/dL (33.0-37.0); Mean Corpuscular Hgb 32.4 pg (27.0-31.0); Mean Corpuscular Volume 89.5 fL (80.0-94.0); Mean Platelet Volume 10.7 fL (7.4-10.4); Platelet Count 142 10^3/uL (130-400); Red Blood Cell Count 4.38 10^6/uL (4.70-6.10); Red Cell Dist. Width 15.5 % (11.5-14.5); White Blood Cell Count 8.9 10^3/uL (4.8-10.8)
[2024-05-01 03:28] LABS: APTT 84.6 Sec (23.4-35.0)
[2024-05-01] MEDS: HEPARIN 25000 UNITS/250 ML IV (03:57)
[2024-05-01] MEDS: LYRICA 150 MG PO ×2 (08:52→19:52)
[2024-05-01] MEDS: COLACE PO ×2 (08:53→21:08)
[2024-05-01] MEDS: COZAAR 25 MG PO (08:53)
[2024-05-01] MEDS: FARXIGA 10 MG PO (08:53)
[2024-05-01] MEDS: LOW STRENGTH ASPIRIN 81 MG PO (08:54)
[2024-05-01] MEDS: MIRALAX PO (08:54)
[2024-05-01] MEDS: SENOKOT PO ×2 (08:54→21:08)
[2024-05-01] MEDS: LASIX 40 MG PO (08:54)
--- NOTE | 2024-05-01 09:07 | W.PN.CD ---
Addendum entered and electronically signed by Jun Leos MD 05/01/24 09:22:
I personally called the transfer center. He is on their list at [place]. waiting for bed availablity and it it dependent on discharges today.. We will need to wit and see if bed becomes available later today
Original Note:
Today's Communication / Plan
-
Continue current therapy
Plan for transfer to [facility]. discussed with Primary team both yesterday and today
Impression / Plan
-
Impression/Plan: 73 y/o male with CAD with LAD stent 2006, RCA stent 2011, LM and D1 stenting 2018, aflutter with hx ablation, tetralogy of Fallot repair, pulmonic stenosis, first degree AVB, bifascicular block, NSVT, CML, HTN, trigeminal neuralgia,
chronic low back pain who is here from the office since he reported SOB, LE edema. Lasix 40 mg daily was attempted as OP, but did not help. Home sats in high 80's at times.
#Acute HFpEF
-Improved since admit
-LVEF 65% on LV gram. This did demonstrated severe mitral valve regurgitation.
-LVEDP/PCWP 15 mmHg.
-Limited role for diuresis, especially given enlarged RV, which may be preload dependent.
-Continue losartan and dapagliflozin.
-Transitioned to furosemide 40mg PO daily
#CAD
- mulitvessel diseaseincluding left main
-Troponin elevation mild and stuttering, inconsistent with ACS. It is likely due to HFpEF.
-Cardiac catheterization does reveal severe, complex CAD, not amenable to percutaneous intervention.
-Consultation with CTS. They believe (rightly) that the patient would do best with an ACHD surgeon given his history of ToF repair, severe MR and complex coronary disease.
-Maintain ASA and heparin gtt.
atorvastatin to 40 mg daily.
-Awaiting transfer to [place]
#BRADYCARDIA Cardiac conduction disease:
-Patient with alternating bundle branch block. Indication for pacemaker. Not currently with indication for temp pacing. Patient will ultimately need permanent pacing with pacer vs ICD around the time of surgery
-Follow telemetry.
-Patient had been on Toprol, stopped (no beta tess with conduction issues)
# MR
-Suspected severe based on cath report but echo with only trace MR. Unclear if overestimated/catheter related.
-Can be reassessed with SANDRA at time of surgery.
.
#Persistent atrial fibrillation
-Currently in AF.
-Alternating bundle branch block as noted.
-CHADS2-Vasc = 3 (CHF, Age x1, vascular disease).
-Therapeutic anticoagulation with heparin gtt.
Subjective/Interval History:
No acute events.
No subjective complaints.
DATA:
TTE, 04/25/2024:
CONCLUSIONS
-Left ventricular ejection fraction is 55-60%. Wall motion is consistent with
conduction abnormality.
-Enlarged right ventricular size. Normal right ventricular systolic function.
-Severely dilated left atrium. Severely dilated right atrium.
-Aortic sclerosis without stenosis.
-Mild tricuspid regurgitation. Estimated pulmonary artery pressure of 30-35
mmHg, assuming a right atrial pressure of 3 mmHg.
-Mild pulmonic stenosis; peak/mean gradients are 12/7. Trace pulmonic
regurgitation.
-Mildly dilated aortic root with Sinus of Valsalva measuring 3.9 cm.
Compared to previous echo on 11/16/23, the right ventricle is dilated but the
right ventricular function is normal.
Cardiac Catheterization, 04/25/2024:
CONCLUSIONS:
1. Right dominant circulation with severe, multivessel coronary disease including a 60-70% lesion in the distal aspect of the left main coronary artery, a PUNCHER AND FASTENER of a large diagonal, complex, Eason 1, 1, 1 90% lesion in the circumflex/OM1, a 40-50%
lesion in the origin of the second, smaller OM, a patent stent with 70% ISR in the mid RCA, a 70% lesion in a large RV marginal which supplies the distal aspect of the inferior septum and a PUNCHER [employer] FASTENER of the second acute marginal with severe, tandem 80%
lesions in the large posterolateral branch.
2. Top normal to mildly elevated filling pressures (LVEDP = 15 mmHg, PCWP = 15 mmHg at 82.6 kg).
3. Severely depressed cardiac function (cardiac index = 1.37 L/min/m�).
4. Severe, 3+ mitral valve regurgitation.
5. Preserved LV systolic function, LV ejection fraction = 65% with a small apical diverticulum.
6. Severely elevated systemic vascular resistance (2677 dynes*seconds*cm^-5).
7. History of tetralogy of Fallot repair, age 24. No evidence of residual intracardiac shunt.
Physical Exam
Vital Signs/Labs
Vital Signs
Temp Pulse Resp BP Pulse Ox
97.5 F 43 20 120/75 95
05/01/24 06:51 05/01/24 08:54 05/01/24 06:51 05/01/24 08:54 05/01/24 06:51
04/30/24 05/01/24 05/02/24
06:59 06:59 06:59
Actual Weight 83.1 kg 81.3 kg
05/01/24 02:43
04/30/24 04:28
APTT 84.6 Sec (23.4-35.0) H 05/01/24 02:43
Magnesium 2.0 mg/dl (1.6-2.3) 04/27/24 04:32
04/24/24
12:59
Ilp-C-Mevljzgimxa Pept 2800
Physical Exam
Constitutional: No acute distress
Cardiovascular: Rhythm & rate is regular
Respiratory: Wheeze Absent and Rhonchi Absent
GI: Soft
Neuro/Psych: Alert
Other: Other (frustrated with the wait)
Data Reviewed
-
Date of Service: May 01, 2024
Medical Decision Making: Reviewed Test Results
Medical Tests (PFT, Pathology etc): Report Reviewed by me
Labs: Labs Reviewed by me
--- NOTE | 2024-05-01 09:39 | PTCARENOTE ---
Rec'd pt this shift awake and alert. Pt denies pain, denies sob. Pt assisted OOB up in chair, ambulating with rolling walker. AM meds given. See worklist for VS/I and O and assessments.
--- NOTE | 2024-05-01 09:41 | PTCARENOTE ---
Pt on Heparin drip at 900 units/hr.
--- NOTE | 2024-05-01 10:18 | CM ---
Chart reviewed. Patient is independent of ADLS, lives with his in a 2 [address], 0 [address]RADDHA, ambulates with a rollator and also wears a CPAP machine. Patient is waiting on transfer to [facility]. Plan is for the patient to transfer higher level of care
once bed is available. CM to follow
[2024-05-01] MEDS: LYRICA 75 MG PO (12:44)
--- NOTE | 2024-05-01 14:56 | W.PN.HOSP.TC ---
Today's Communication/Plan
-
Volume status relatively compensated on oral Lasix
Continue IV heparin
Pending transfer to [facility]
Assessment / Plan
Assessment / Plan
73-year-old sent in to the ER from by the cardiology team for admission due to CHF exacerbation despite medication changes at home in the past week with increasing shortness of breath and lower extremity edema in the last week with a weight gain of
approximately 15 pounds.
He has a longstanding history of chronic cardiac issues that include coronary artery disease with multiple stents along with permanent atrial fibrillation on Eliquis and a history of tetralogy of Fallot with VSD repair when much younger apparently
may have a history of bifascicular block but a left bundle branch block seen on EKG is remarkably new according to cardiology and now will be admitted with cardiology consultation and electrophysiology input. Patient's proBNP is 2800 prior it had
been about 680/presently undergoing 2D echocardiogram at bedside in the ED and chest x-ray results pending but look to be consistent with vascular edema.
Past Medical History: Reports Arrhythmia (Permanent atrial fibrillation), CAD (2 stents 1 to the LAD in 2006 another 1 to the RCA in 2019), Cancer (CML on), HTN and Valvular Disease (VSD repair and tetralogy of Fallot by history)
Past Surgical History: Reports Cardiac
Echo 624-LV systolic function 55 to 60%. Wall motion consistent with conduction abnormality. Enlarged RV. Severely dilated LA. Severely dilated RA. Aortic sclerosis without stenosis. Mild TR. Pulmonary pressure of 30 to 35 mmHg. Mild
pulmonary stenosis. Trace pulmonary regurgitation.
CVS: S1-S2 irregular, systolic murmur apex, right heart border, Av
Chest: Rales bilaterally
Abdomen: Soft, NT / Bowel sounds present
Extremities: no edema today
COOK HELPER: Non focal exam
#Acute heart failure with preserved ejection fraction
-Weight gain and orthopnea
-Initially on IV diuresis, Lasix transition to oral on 04/29
-Losartan 25 mg p.o. daily, Farxiga added
-BB stopped due to bradycardia
-Cath04/25/24- Right dominant circulation with severe, multivessel coronary disease including a 60-70% lesion in the distal aspect of the left main coronary artery,Top normal to mildly elevated filling pressures Wedge 15 mm Hg,Severe, 3+ mitral valve
regurgitation.Severely depressed cardiac function,Preserved LV systolic function, EF 65 %
-Spoke to [facility] twice yesterday . [facility] called me back said will accept .
-Called transfer center . awaiting a bed at this point.
-Transfer forms signed by the patient.
# Bifascicular block-intermittent
-Based on cardiology record new left bundle branch block
-Will probably require pacemaker insertion ?
-BB Stopped
#Permanent atrial fibrillation
-History of ablation
-Rate management with metoprolol succinate 12.5 at at bedtime
-On chronic apixaban which is on hold-patient on heparin drip
#Coronary artery disease by history
-LAD stent, RCA stent
-Continue aspirin , increased statin
-Hold Plavix in anticipation of surgery
# Hyperlipidemia-statin
#Chronic pain-narcotic dependent
-Continue patient is on morphine pump at prior settings/as pharmacy verifies just refilled last week
-Continue pregabalin
-Duloxetine
#Trigeminal neuralgia
#Compression fracture L1
# Sleep apnea-CPAP
# Gout and arthritis
#Prior history of chronic myelogenous leukemia
#Prior history of tetralogy of Fallot with VSD repair at [facility]
#DVT prophylaxis on apixaban and venous pump
#DNR/DNI
Spoke to transfer center today. Awaiting a bed.
Discussed with nursing
Transfer forms signed
Time more than 50 min
Anticipated Discharge: Within 24 hours
Subjective/Interval History
-
Date of Service: May 01, 2024
Objective Data
-
Labs:
Laboratory Results
05/01/24
02:43
WBC 8.9
Hgb 14.2
Hct 39.2
Plt Count 142
APTT 84.6 H
Vital Signs:
Vital Signs
Temp Pulse Resp BP Pulse Ox
97.5 F 55 18 120/67 92
05/01/24 11:32 05/01/24 12:00 05/01/24 11:32 05/01/24 11:32 05/01/24 11:32
I&O
04/30/24 05/01/24 05/02/24
06:59 06:59 06:59
Intake Total 108 / 108 749 / 749
Output Total 2175 / 2175 800 / 800 300 / 300
Balance -2067 / -2067 -800 / -800 449 / 449
Physical Exam
-
General: Well Developed
HEENT: Normocephalic
Respiratory: Clear to Auscultation
Cardiac: Bradycardic (In the 40s with underlying A-fib)
GI: Soft
Musculoskeletal: Edema, Right Lower Extrem and Edema, Left Lower Extrem
Skin: Warm
Neuro: Awake, Alert and Oriented
[2024-05-01] MEDS: LIPITOR 40 MG PO (22:46)
[2024-05-01] MEDS: CYMBALTA DELAYED RELEASE 30 MG PO (22:46)
--- NOTE | 2024-05-01 23:51 | PTCARENOTE ---
Pt received at start of shift, HR a-flutter. Pt anxious to get to [place], updated pt on status of open beds at [place]. Pt spilled urinal on self, pt ambulated to chair x1 assist w/ walker. Pt bathed with bath wipes, teeth brushed, face washed, new gown
+ linens. Pt using own CPAP device overnight, pt states 'If you hear me throw it off in the night, don't worry'. Educated pt on importance of using CPAP at night for sleep apnea and HF. Pt states understanding. Pt denies any CP, SOB, or
lightheadedness/dizziness at this time. Informed to notify RN if any changes, call barone within reach.
--- NOTE | 2024-05-02 01:40 | PTCARENOTE ---
Received call from [place] transfer center, bed available. Report was called to RN for room 809 at [facility]. Ambulance arranged through [employer], facesheet and transfer authorization form faxed to ambulance squad. Copy of pt's cath CD completed by NADER.
To be sent along w/ pt's medical records. At this time, ambulance company reports at minimum a two hour wait before pt pickup.
[2024-05-02 03:03] VITALS: BP 147/66
[2024-05-02 03:28] VITALS: BMI 28.2
[2024-05-02] MEDS: HEPARIN 25000 UNITS/250 ML IV (03:48)
--- NOTE | 2024-05-02 04:19 | PTCARENOTE ---
Pt picked up by transport team to [facility] [place] [address] [place] [id number]. New bag of heparin scanned and sent w/ pt and transport team running at 900units/hr. Report called in to Fela Simon RN at [facility]. [facility] transport center notified. Pt belongings,
chart, and reports sent w/ pt. Pt stated to not notify his of the transfer as it is 'too early, she's still asleep' and that he will call her when he arrives at [facility].
== END 2024-05-02 04:36 | disposition short-term general hospital (02) | DRG 286 ==
LOC: IVU 18:14
PROVIDERS: Hospitalist; Internal Medicine; Internal Medicine Cardiovascular Disease; Nurse Practitioner Adult Health; Physician Assistant Medical; ADMITTING PHYSICIAN Internal Medicine; ATTENDING PHYSICIAN Internal Medicine; CONSULT PHYSICIAN Thoracic Surgery (Cardiothoracic Vascular Surgery); EMERGENCY PHYSICIAN Emergency Medicine; FAMILY PHYSICIAN Family Medicine
PROC: B2111ZZ Fluoroscopy of Multiple Coronary Arteries using Low Osmolar Contrast (ICD-10-PCS; 2024-04-25)
PROC: 4A023N8 Measurement of Cardiac Sampling and Pressure, Bilateral, Percutaneous Approach (ICD-10-PCS; 2024-04-25)
PROC: B2151ZZ Fluoroscopy of Left Heart using Low Osmolar Contrast (ICD-10-PCS; 2024-04-25)
DX: I11.0 Hypertensive heart disease with heart failure (principal); I50.31 Acute diastolic (congestive) heart failure; Q25.6 Stenosis of pulmonary artery; I45.2 Bifascicular block; I48.21 Permanent atrial fibrillation; M48.56XA Collapsed vertebra, not elsewhere classified, lumbar region, initial encounter for fracture; F11.20 Opioid dependence, uncomplicated; I25.10 Atherosclerotic heart disease of native coronary artery without angina pectoris; E78.00 Pure hypercholesterolemia, unspecified; E78.5 Hyperlipidemia, unspecified; G89.29 Other chronic pain; I27.20 Pulmonary hypertension, unspecified; G50.0 Trigeminal neuralgia; G47.30 Sleep apnea, unspecified; M10.9 Gout, unspecified; I70.0 Atherosclerosis of aorta; M54.50 Low back pain, unspecified; L89.621 Pressure ulcer of left heel, stage 1; L89.611 Pressure ulcer of right heel, stage 1; I34.0 Nonrheumatic mitral (valve) insufficiency; Z66 Do not resuscitate; Z79.01 Long term (current) use of anticoagulants; Z85.6 Personal history of leukemia; Z83.3 Family history of diabetes mellitus; Z87.74 Personal history of (corrected) congenital malformations of heart and circulatory system; Z88.5 Allergy status to narcotic agent; Z91.013 Allergy to seafood
CPT/HCPCS: 71046; 80048; 80053; 82607; 83735; 83880; 84484; 85025; 85027; 85730; 87070; 93005; 93306; 93460; 96374; 99285; C1894; Q9967

== ENCOUNTER → 2024-06-06 10:00 | Outpatient (REF) | payer OTHER, SELFPAY | LOC: RAD 10:00 | PROVIDERS: ATTENDING PHYSICIAN Nurse Practitioner; FAMILY PHYSICIAN Family Medicine | DX: I50.22 Chronic systolic (congestive) heart failure (principal); I25.10 Atherosclerotic heart disease of native coronary artery without angina pectoris; Z95.0 Presence of cardiac pacemaker | CPT/HCPCS: 71046 ==

== ENCOUNTER → 2024-06-25 12:20 | Outpatient (REF) | payer OTHER, SELFPAY | LOC: RAD 12:20 | PROVIDERS: ATTENDING PHYSICIAN Family Medicine | DX: M54.50 Low back pain, unspecified (principal); M54.14 Radiculopathy, thoracic region | CPT/HCPCS: 72072; 72110 ==

== ENCOUNTER 2024-08-21 15:31 | Emergency (ER) | payer OTHER, SELFPAY ==
[2024-08-21 15:37] VITALS: BP 119/76
[2024-08-21] MEDS: LIORESAL 10 MG PO (17:08)
[2024-08-21] MEDS: DECADRON 10 MG IM (17:08)
--- NOTE | 2024-08-21 17:15 | ED.GENMED ---
History of Present Illness
General
Chief Complaint: Back Pain
Source: patient and spouse
Time Seen by Provider: 08/21/24 16:10
History of Present Illness
History of Present Illness:
74-year-old male with extensive cardiac history, chronic pain secondary to back pain and trigeminal neuralgia status post morphine pump placement 2-1/2 years ago or so presenting to the emergency department for evaluation of acute on chronic back
pain noting yesterday he bent forward to lift up the toilet seat when he felt a sudden snapping and cracking sensation in his lower back and has been in pain since. Patient contacted his pain management provider who advised he contact his primary
care provider but that if the primary care would not be able to see the patient in a timely matter that they would attempt to get the patient in today. Patient was able to see his primary care provider today who recommended he come to the ER for
further evaluation and imaging. Patient has tramadol for breakthrough pain which she took around 9 AM but without any relief. He denies any bladder or bowel incontinence, saddle anesthesias, focal weakness or numbness, fevers or infectious
symptoms. Of note, patient was recently admitted at a separate facility for a heart failure exacerbation and has been doing physical therapy after becoming deconditioned during his admission.
Past History
Past History
ED Past Medical History: Arrthythmia, CAD, Cancer (CML), CHF, GERD, Hypercholesterolemia and [place]
ED Past Surgical History: Appendectomy, Cardiac (Cardiac ablation, tetrology of fallot repair) and Cholecystectomy
Social History
Tobacco: Non-smoker
Alcohol: Former
Drug: None
Personal:
Living: with family
Employment: Employed ([employer])
Family History
Family History: Other (Mother with diabetes)
Review of Systems
Review of Systems
All Other Systems: ROS reviewed and negative except as documented in HPI and ROS
Phy Exam
Physical Exam
Physical Exam:
GENERAL: Alert , in no apparent distress while resting but appears uncomfortable with movement
EYE: clear conjunctiva b/l
NECK: Supple
ENT: mmm.
ABDOMEN: Soft, without focal tenderness, no r/g, no cvat
BACK: Limited range of motion 2/2 pain, diffuse ttp lumbar spine, no midline bony tenderness, no rashes
NEUROLOGICAL: Alert and oriented, no focal neuro deficits. Patellar deep tendon reflexes intact and equal bilaterally, sensation grossly intact and equal to light touch bilateral lower extremities
SKIN: Warm and dry, skin intact.
MUSCULOSKELETAL: No edema, well perfused. EHL intact bilaterally
PSYCH: Normal and appropriate interaction.
Scores
Heart Failure Risk
Heart Failure Risk Score: Not Applicable
Heart Score for Chest Pain Patients
STEMI patient?: Not applicable
Withdrawal Assessment of Alcohol
Withdrawal Assessment Completed?: Not applicable
Course
Orders/Labs/Results
Orders:
Orders
08/21/24 16:23
Baclofen [Lioresal] 10 mg PO NOW STA
Dexamethasone Sod Phosphate [Decadron] 10 mg IM NOW STA
CR Lumbar Spine Comp Min 4 Vw* Urgent
Comment:
Reason For Exam: acute on chronic low back pain
Vital Signs
Initial and Last Documented VS:
Initial Vital Signs
Temp Pulse Resp BP Pulse Ox
98.0 F 96 16 119/76 98
08/21/24 15:37 08/21/24 15:37 08/21/24 15:37 08/21/24 15:37 08/21/24 15:37
Last Documented Vital Signs
Temp Pulse Resp BP Pulse Ox
98.0 F 96 16 119/76 98
08/21/24 15:37 08/21/24 15:37 08/21/24 15:37 08/21/24 15:37 08/21/24 15:37
MDM/Problems Addressed
Differential Diagnosis Includes:
lumbar strain, spinal stenosis, disc herniation, nerve impingement, compression fx
MDM/Problems Addressed:
74-year-old male presenting to the emergency department for evaluation of acute on chronic lower back pain. Bent over yesterday to lift up the toilet seat when he felt sudden cracking and popping sensation. Minimal pain relief despite his morphine
pump and breakthrough tramadol. No focal neurologic deficits. No symptoms to suggest infectious etiology. Overall I do not have any concern for emergent pathology. Will obtain x-ray as patient was sent to the ER for imaging. Pain control with
Decadron and baclofen. Anticipate discharge home and continued outpatient management
Chronic conditions affecting care: Other (Chronic back pain)
*Radiology
Radiology exam reviewed: preliminary read by ED provider (Suspected chronic compression fracture at T12 and L1)
*Pulse Oximetry
Patient hypoxic: no
*Critical Care Note
Total Time (30-74mins, 75-104mins- exclusive of procedures): Not Applicable
Patient Management
Escalation/DeEscalation of care consider admission/obs:
Patient's x-ray findings as above. Able for discharge home and can continue his usual pain regimen. Will prescribe a Medrol Dosepak to be used as needed. Aware of return precautions but stable for discharge home.
ED Attending Note
-
Portions of this chart may have been created with voice recognition software.� Occasional wrong word or��sound alike� substitutions may have occurred due to the inherent limitations of voice recognition software.
Discharge Plan
Departure
Patient Disposition: Home (Routine Discharge)
Date of Disposition: 08/21/24
Time of Disposition: 17:23
Patient with high blood pressure during this ER visit?: No
Discharge Problem:
Acute exacerbation of chronic low back pain, Compression fracture of L1 lumbar vertebra
Instructions: Low Back Pain (DC)
Prescriptions:
New
methylprednisolone [Medrol (Buddy)] 4 mg tablets,dose pack
4 mg PO DIRECTED Qty: 21 0RF
No Action
furosemide 20 MG tablet
40 mg PO DAILY
acetaminophen 325 MG tablet
650 mg PO DAILYPRN PRN (Reason: mild pain)
metoprolol succinate 12.5 MG tablet extended release 24 hr
12.5 mg PO HS
Eliquis 5 MG tablet
5 mg PO BID 30 Days Qty: 60 0RF
simvastatin 20 mg Tablet
20 mg PO HS
losartan 25 mg Tablet
25 mg PO DAILY
aspirin 81 mg Tablet,Chewable
81 mg PO DAILY
pregabalin 75 mg Capsule
75 mg PO DAILY@1200
pregabalin 150 mg Capsule
150 mg PO BID
Patient's Own Morphine Pump
0.9203 mg IV .VIA PUMP
Patient Comments:
04/24/24 lg: Per Dr Valdez
Implantable Medtronic 20 cc pump: morphine 5 mg/mL
continuous rate: 0.9203 mg / day (increased from 0.8363 mg/day on 04/23/24)
No bolus option
Refilled 04/23/24; next refill date 07/11/24; alarm data 07/28/24; battery change 10/2029
Senna Gummies
2 tab PO DAILYPRN PRN (Reason: constipation)
Referrals:
Gonzalez Garcia MD [Family Provider] -
Interventions
Interventions:
*Risk Screen - Suicide Last Done: 08/21/24 15:37
*Neglect/Abuse Screening Last Done: 08/21/24 15:37
*ED COVID-19 Vaccine History Last Done: 08/21/24 17:37
*Nursing Disposition Last Done: 08/21/24 17:43
ED-Musculoskeletal Assessment Last Done: 08/21/24 17:17
Discharge Date and Time
Discharge Date/Time: 08/21/24 17:44
Print Language: [id number]
== END 2024-08-21 17:44 | disposition home or self-care (01) ==
LOC: EMR 15:31
PROVIDERS: EMERGENCY PHYSICIAN Emergency Medicine; FAMILY PHYSICIAN Family Medicine
DX: G89.29 Other chronic pain (principal); M54.50 Low back pain, unspecified; M48.56XA Collapsed vertebra, not elsewhere classified, lumbar region, initial encounter for fracture; G50.0 Trigeminal neuralgia; I25.10 Atherosclerotic heart disease of native coronary artery without angina pectoris; I50.9 Heart failure, unspecified; K21.9 Gastro-esophageal reflux disease without esophagitis; E78.00 Pure hypercholesterolemia, unspecified; I25.2 Old myocardial infarction; Z83.3 Family history of diabetes mellitus; Z90.49 Acquired absence of other specified parts of digestive tract
CPT/HCPCS: 99283; 96372; 72110

== ENCOUNTER 2024-08-29 22:21 | Inpatient (IN) | payer OTHER, SELFPAY ==
[2024-08-29 15:29] VITALS: BP 126/96
--- NOTE | 2024-08-29 15:36 | ED.GENMED ---
ED Provider Triage
<Eligio Guaman PA-C - Last Filed: 08/29/24 15:37>
-
Patient seen by provider in Triage?: Seen in Triage
Attestation: A medical screening examination has been initiated by a qualified medical provider. Based on the assessment performed at this time, it has been determined that an emergent medical condition may exist and the patient has been informed
that further medical evaluation and possible additional diagnostic testing may be needed.
HPI: 74-year-old male presenting to the emergency department at the request of pain management for worsening acute on chronic back pain. Patient in the emergency department last week for the same, no relief with baclofen with a Medrol Dosepak in
addition to his usual chronic pain medication. Was at pain management today and was recommended to come to the ER for further pain management and advanced imaging. No neurologic symptoms and no fevers or infectious symptoms.
GENERAL: Alert , in no apparent distress
EYE: No visual abnormalities.
NECK: Trachea midline
ENT: No visible abnormalities.
LUNGS: No acute respiratory distress
NEUROLOGICAL: Alert and oriented
SKIN: Skin intact. No visible changes.
MUSCULOSKELETAL: Moving extremities normally
PSYCH: Normal and appropriate interaction.
This is a medical evaluation conducted in person to initiate diagnostic evaluation and provide initial therapeutics. Please see further documentation by the treating clinician.
History of Present Illness
<Eligio Guaman PA-C - Last Filed: 08/29/24 15:37>
General
Chief Complaint: Back Pain
Time Seen by Provider: 08/29/24 19:15
<Dave Johnson DO - Last Filed: 08/29/24 21:17>
History of Present Illness
History of Present Illness:
TIME OF INITIAL ENCOUNTER: 7:16 PM
HPI: 74-year-old male presenting to the emergency department at the request of pain management for worsening acute on chronic back pain. Patient in the emergency department last week for the same, no relief with baclofen with a Medrol Dosepak in
addition to his usual chronic pain medication. Was at pain management today and was recommended to come to the ER for further pain management and advanced imaging. The patient reports no bowel or bladder incontinence or retention or fevers but
does have increasing gait dysfunction. He is had more shortness of breath and also appeared more confused according to the .
EXAM:
GENERAL: Appears chronically ill
HEENT: Moist oral mucosa
CARDIOVASCULAR: 2/6 murmur, normal heart rate, no chest wall tenderness
PULMONARY: No respiratory distress, breath sounds are clear and equal
ABDOMEN: Soft with no peritoneal signs, no tenderness
NEUROLOGIC: Generally equally weak strength all extremities, no coordination deficits
PSYCHIATRIC: Appropriate mental status, normal insight and judgement
EXTREMITIES: Nontender, no edema, moves all extremities equally
SKIN: Appears pale
NUMBER AND COMPLEXITY OF PROBLEMS ADDRESSED AT THE ENCOUNTER
� Chronic conditions affecting care: Chronic low back pain, CHF atrial flutter status post ablation, has had tetralogy of Fallot repair
� Acute Exacerbation and/or Progression of Chronic Illness: Acute exacerbation of chronic pain
� Differential Diagnosis includes: Acute exacerbation of chronic pain, compression fracture, spinal stenosis
AMOUNT AND/OR COMPLEXITY OF DATA TO BE REVIEWED AND ANALYZED
� I performed an independent evaluation of and my interpretation is:
EKG:
CT:
X-rays: Chest x-ray suggest pneumonia
Laboratory Studies: White count 17.8, total bili 3.6 but other LFTs normal
Other:
� Review of other/old records: I reviewed x-ray report of the L-spine from 08/21/2024 that showed marked chronic compression formerly of L1 and likely mild chronic compression deformities of T11 and T12 vertebral body. The
patient also had an MRI in September 2023.
� Clinical information was obtained by an independent historian: I spoke to the at bedside
� Prescriptions/Medications Considered but not given:
� Further testing considered but not performed:
RISK OF COMPLICATIONS AND/OR MORBIDITY OR MORTALITY OF PATIENT MANAGEMENT
� Social determinants of health affecting care: Lives at home
� Discussion with other providers: 9:15 PM, Dr. Donovan for admission
� Escalation of care including admission/observation vs risk of discharge considered: The patient has a morphine pump and has just been on a narcotic for pain control�these have not been helping. He has been prescribed tramadol
as well but this also has not been helping for breakthrough pain. Leukocytosis noted, but no evidence of urinary tract infection. Chest x-ray suggest pneumonia. He has been doing poorly as an outpatient.
ANY OTHER UPDATES:
7:28 PM: IV Dilaudid ordered due to ongoing/worsening back pain
9:12 PM: Antibiotics IV have been ordered for suspicion for pneumonia as the patient does have a high white blood cell count and reports some degree of shortness of breath.
Past History
<Eligio Guaman PA-C - Last Filed: 08/29/24 15:37>
Past History
ED Past Medical History: Arrthythmia, CAD, Cancer (CML), CHF, GERD, Hypercholesterolemia and OH
ED Past Surgical History: Appendectomy, Cardiac (Cardiac ablation, tetrology of fallot repair) and Cholecystectomy
Social History
Tobacco: Non-smoker
Alcohol: Former
Drug: None
Personal:
Living: with family
Employment: Employed ([employer])
Family History
Family History: Other (Mother with diabetes)
Phy Exam
<Dave Johnson DO - Last Filed: 08/29/24 21:17>
Physical Exam
Physical Exam:
See HPI
Course
<Eligio Guaman PA-C - Last Filed: 08/29/24 15:37>
Orders/Labs/Results
Orders:
Orders
08/29/24 15:37
Complete Blood Count/With Diff Urgent
Comprehensive Metabolic Panel Urgent
08/29/24 19:14
Urinalysis Reflex To Culture Urgent
Date Specimen was Collected: 08/29/24
Time Specimen was Collected: 17:07
Urine Microscopic Reflex Cult Urgent
08/29/24 19:25
HYDROmorphone [Dilaudid] 1 mg IV NOW STA
CR Chest - 2 Views Urgent
Comment:
Reason For Exam: sob high wbc
08/29/24 21:11
Azithromycin 500 mg/250 ml [Zithromax Infusion] 500 mg in 250 ml IV NOW
CefTRIAXone [Rocephin] 1,000 mg IV NOW STA
Abnormal Lab Results
08/29/24 08/29/24
15:37 19:14
WBC 17.8 H 10^3/uL
(4.8-10.8)
RDW 15.9 H %
(11.5-14.5)
Abs Immat Gran (auto) 0.3 H 10^3/uL
(0-0.05)
Absolute Neuts (auto) 13.2 H 10^3/uL
(1.4-6.5)
Absolute Monos (auto) 1.6 H 10^3/uL
(0.1-0.6)
Immature Gran % 1.8 H %
(0-0.5)
Lymphocytes % 14.1 L %
(20.5-51.1)
Sodium 132 L mmol/L
(135-145)
Chloride 92 L mmol/L
(98-107)
BUN 33 H mg/dl
(9-20)
Glucose 168 H mg/dl
(70-99)
Total Bilirubin 3.6 H mg/dl
(0.2-1.3)
Ur Occult Blood Reflex Trace A
(Negative)
Urine Glucose 3+ A
(Negative)
08/29/24 15:37
08/29/24 15:37
Vital Signs
Initial and Last Documented VS:
Initial Vital Signs
Temp Pulse Resp BP Pulse Ox
97.6 F 62 16 126/96 95
08/29/24 15:29 08/29/24 15:29 08/29/24 15:29 08/29/24 15:29 08/29/24 15:29
Last Documented Vital Signs
Temp Pulse Resp BP Pulse Ox
97.8 F 92 16 117/77 96
08/29/24 19:08 08/29/24 20:50 08/29/24 20:50 08/29/24 20:50 08/29/24 20:50
<Dave Johnson, DO - Last Filed: 08/29/24 21:17>
Orders/Labs/Results
Orders:
Orders
08/29/24 15:37
Complete Blood Count/With Diff Urgent
Comprehensive Metabolic Panel Urgent
08/29/24 19:14
Urinalysis Reflex To Culture Urgent
Date Specimen was Collected: 08/29/24
Time Specimen was Collected: 17:07
Urine Microscopic Reflex Cult Urgent
08/29/24 19:25
HYDROmorphone [Dilaudid] 1 mg IV NOW STA
CR Chest - 2 Views Urgent
Comment:
Reason For Exam: sob high wbc
08/29/24 21:11
Azithromycin 500 mg/250 ml [Zithromax Infusion] 500 mg in 250 ml IV NOW
CefTRIAXone [Rocephin] 1,000 mg IV NOW STA
Abnormal Lab Results
08/29/24 08/29/24
15:37 19:14
WBC 17.8 H 10^3/uL
(4.8-10.8)
RDW 15.9 H %
(11.5-14.5)
Abs Immat Gran (auto) 0.3 H 10^3/uL
(0-0.05)
Absolute Neuts (auto) 13.2 H 10^3/uL
(1.4-6.5)
Absolute Monos (auto) 1.6 H 10^3/uL
(0.1-0.6)
Immature Gran % 1.8 H %
(0-0.5)
Lymphocytes % 14.1 L %
(20.5-51.1)
Sodium 132 L mmol/L
(135-145)
Chloride 92 L mmol/L
(98-107)
BUN 33 H mg/dl
(9-20)
Glucose 168 H mg/dl
(70-99)
Total Bilirubin 3.6 H mg/dl
(0.2-1.3)
Ur Occult Blood Reflex Trace A
(Negative)
Urine Glucose 3+ A
(Negative)
08/29/24 15:37
08/29/24 15:37
Vital Signs
Initial and Last Documented VS:
Initial Vital Signs
Temp Pulse Resp BP Pulse Ox
97.6 F 62 16 126/96 95
08/29/24 15:29 08/29/24 15:29 08/29/24 15:29 08/29/24 15:29 08/29/24 15:29
Last Documented Vital Signs
Temp Pulse Resp BP Pulse Ox
97.8 F 92 16 117/77 96
08/29/24 19:08 08/29/24 20:50 08/29/24 20:50 08/29/24 20:50 08/29/24 20:50
<Dave Johnson DO - Last Filed: 08/29/24 21:17>
*Critical Care Note
Total Time (30-74mins, 75-104mins- exclusive of procedures): Not Applicable
ED Attending Note
<Eligio Guaman PA-C - Last Filed: 08/29/24 15:37>
-
Portions of this chart may have been created with voice recognition software.� Occasional wrong word or��sound alike� substitutions may have occurred due to the inherent limitations of voice recognition software.
Discharge Plan
Departure
Prescriptions:
No Action
furosemide 20 MG tablet
40 mg PO DAILY
acetaminophen 325 MG tablet
650 mg PO DAILYPRN PRN (Reason: mild pain)
metoprolol succinate 12.5 MG tablet extended release 24 hr
12.5 mg PO HS
Eliquis 5 MG tablet
5 mg PO BID 30 Days Qty: 60 0RF
simvastatin 20 mg Tablet
20 mg PO HS
losartan 25 mg Tablet
25 mg PO DAILY
aspirin 81 mg Tablet,Chewable
81 mg PO DAILY
pregabalin 75 mg Capsule
75 mg PO DAILY@1200
pregabalin 150 mg Capsule
150 mg PO BID
Patient's Own Morphine Pump
0.9203 mg IV .VIA PUMP
Patient Comments:
04/24/24 lg: Per Dr Valdez
Implantable Medtronic 20 cc pump: morphine 5 mg/mL
continuous rate: 0.9203 mg / day (increased from 0.8363 mg/day on 04/23/24)
No bolus option
Refilled 04/23/24; next refill date 07/11/24; alarm data 07/28/24; battery change 10/2029
Senna Gummies
2 tab PO DAILYPRN PRN (Reason: constipation)
methylprednisolone [Medrol (Buddy)] 4 mg tablets,dose pack
4 mg PO DIRECTED Qty: 21 0RF
Referrals:
Gonzalez Garcia MD [Family Provider] -
Interventions
Interventions:
*Risk Screen - Suicide Last Done: 08/29/24 19:11
*General Assessment Last Done: 08/29/24 19:11
*Neglect/Abuse Screening Last Done: 08/29/24 19:11
*ED COVID-19 Vaccine History Last Done: 08/29/24 19:11
ED-Musculoskeletal Assessment Last Done: 08/29/24 19:12
Discharge Date and Time
Print Language: NAURUAN
[2024-08-29 15:45] LABS: % Basophils 0.3 % (0-2); % Eosinophils 0.8 % (0-6); % Immature Granulocytes 1.8 % (0-0.5); % Lymphocytes 14.1 % (20.5-51.1); % Monocytes 8.8 % (1.7-9.3); % Neutrophils 74.2 % (42.2-75.2); Absolute Basophils 0.1 10^3/uL (0-0.2); Absolute Eosinophils 0.1 10^3/uL (0-0.7); Absolute Immature Granulocytes 0.3 10^3/uL (0-0.05); Absolute Lymphocytes 2.5 10^3/uL (1.2-3.4); Absolute Monocytes 1.6 10^3/uL (0.1-0.6); Absolute Neutrophils 13.2 10^3/uL (1.4-6.5); Hematocrit 41.8 % (39.0-52.0); Hemoglobin 14.7 g/dL (13.0-18.0); Mean Corp Hgb Conc. 35.2 g/dL (33.0-37.0); Mean Corpuscular Hgb 29.8 pg (27.0-31.0); Mean Corpuscular Volume 84.8 fL (80.0-94.0); Mean Platelet Volume 10.4 fL (7.4-10.4); Nucleated Red Blood Cells % 0 % (-); Platelet Count 190 10^3/uL (130-400); Red Blood Cell Count 4.93 10^6/uL (4.70-6.10); Red Cell Dist. Width 15.9 % (11.5-14.5); White Blood Cell Count 17.8 10^3/uL (4.8-10.8)
[2024-08-29 16:07] LABS: ALT (SGPT) 31 U/L (0-50); AST (SGOT) 36 U/L (17-59); Albumin 4.2 g/dl (3.5-5.0); Alkaline Phosphatase 98 U/L (38-126); Blood Urea Nitrogen 33 mg/dl (9-20); Calcium 9.6 mg/dl (8.4-10.2); Carbon Dioxide 25 mmol/L (22-30); Chloride 92 mmol/L (98-107); Glucose 168 mg/dl (70-99); Potassium 3.5 mmol/L (3.5-5.1); Sodium 132 mmol/L (135-145); Total Bilirubin 3.6 mg/dl (0.2-1.3); Total Protein 6.7 g/dl (6.3-8.2); eGFR > 60.00
[2024-08-29 19:07] VITALS: BMI 27.1
[2024-08-29 19:08] VITALS: BP 113/63
[2024-08-29 19:22] LABS: Urine Albumin Negative (Neg - Trace); Urine Bilirubin Negative (Negative); Urine Character Clear (Clear); Urine Color Yellow; Urine Glucose 3+ (Negative); Urine Ketone Negative (Negative); Urine Leukocyte Negative (Negative); Urine Nitrite Negative (Negative); Urine Occult Blood Trace (Negative); Urine Urobilinogen Negative (Neg - 1+)
[2024-08-29] MEDS: DILAUDID 1 MG IV (19:43)
[2024-08-29 19:51] LABS: Urine Red Blood Cell 0-2 /HPF (0-2)
[2024-08-29 20:50] VITALS: BP 117/77
[2024-08-29] MEDS: ROCEPHIN 1000 MG IV (21:23)
[2024-08-29] MEDS: ZITHROMAX INFUSION 250 IV (21:31)
[2024-08-29 22:01] VITALS: BP 107/67
--- NOTE | 2024-08-29 22:01 | HPS.HSE ---
Family Physician
-
Family Physician: Gonzalez Garcia
Chief Complaint
-
Back pain, SOB
History of Present Illness
This is an 4-year-old male with past medical history of coronary artery disease with LAD stent in 2006, RCA stent 2012, LM, and D1 stenting 2018, A flutter with history of ablation, tetralogy, of Fallot repair, pulmonic stenosis, first-degree AV
block, bifascicular block, NSVT, status post pacemaker CML, hypertension, trigeminal neuralgia, chronic low back pain status post intrathecal morphine pump, who presents to the emergency department with exacerbation of his chronic back pain and
cough.
Patient told me he developed exacerbation of his back pain about 1 week ago and at that time reported that he had a new lumbar compression fracture. He he has been trying to manage the pain at home. Followed up with pain specialist who sent him to
the emergency department. The pain is in his back. He denied any radiation down to his leg. He denied any numbness or tingling. He reports that he is unable to ambulate secondary to the pain.
Patient also has some degree of confusion. He was incidental and over again. According to spouse the developed some confusion over the last few days as well as some shortness of breath. No obvious cough. No known sick contacts.
In the emergency department he was afebrile blood pressure was 117/77 pulse was 91. Telemetry shows a ventricularly paced rhythm. He had a white count of 7000 with normal hemoglobin and platelet count. Chemistries notable for a sodium of 132 and
a BUN of 33 but is otherwise unremarkable. UA was negative. X-ray shows a left lower lobe opacity consistent with pneumonia.
Medical History
Past Medical History
Past Medical History: Reports Arrhythmia (A flutter status post ablation, bifascicular block status post pacemaker), CAD, CHF, HTN and Other
Additional Past Medical History:
Chronic back pain
Past Surgical History: Reports Other
Social History
Tobacco: Non-smoker
Alcohol: None
Drug: None
Personal:
Living: With Family
Employment: Disabled
Family History
Family History: Not pertinent
Allergies / Home Medications
Allergies reflects when Allergies were last updated in [employer].
Home Medications with original date entered in [employer]
Allergy/Medication List:
Allergies
Allergy/AdvReac Type Severity Reaction Status Date / Time
fentanyl Allergy Nausea / Verified 08/21/24 15:40
Vomiting
scallops Allergy Vomiting Verified 08/21/24 15:40
Home Medications
metoprolol succinate 25 mg tablet,extended release 24 hr 25 mg PO BID Blood pressure 12/23/20
apixaban 5 mg tablet (Eliquis) 5 mg PO BID Blood clot prevention/tx 30 days #60 tabs 12/27/20
Patient's Own Morphine Pump 0.9203 mg IV .VIA PUMP Pain 04/24/24
pregabalin 150 mg capsule 150 mg PO TID Neurological Condition 04/24/24
pregabalin 75 mg capsule 75 mg PO DAILY@1200 Neurological Condition 04/24/24
atorvastatin 40 mg tablet 40 mg PO QPM 08/29/24
clopidogrel 75 mg tablet 75 mg PO DAILY 08/29/24
empagliflozin 10 mg tablet (Jardiance) 10 mg PO DAILY 08/29/24
ezetimibe 10 mg tablet (Zetia) 10 mg PO DAILY 08/29/24
potassium chloride 20 mEq tablet,extended release 20 meq PO BID 08/29/24
tramadol 50 mg tablet 50 mg PO Q8H PRN breakthrough pain 08/29/24
Review of Systems
-
History Source: Patient and Family
Constitutional: Reports No Symptoms
EENT: Reports No Symptoms
Respiratory: Reports Trouble Breathing
Cardiac: Reports No Symptoms
Abdomen/GI: Reports No Symptoms
: Reports No Symptoms
Musculoskeletal: Reports Other (Back pain)
Skin: Reports No Symptoms
Neurological: Reports No Symptoms
Endocrine: Reports No Symptoms
Hematologic/Lymphatic: Reports No Symptoms
Psych: Reports No Symptoms
Physical Exam
Vital Signs
Vital Signs
Temp Pulse Resp BP Pulse Ox
97.8 F 91 30 117/77 97
08/29/24 19:08 08/29/24 21:33 08/29/24 21:33 08/29/24 20:50 08/29/24 21:33
Physical Exam
General: Appears in Distress
HEENT: NormoCephalic, Anicteric, Moist mucous membranes, Atraumatic, PERRLA and Oxygen
Respiratory: Clear
Cardiac: S1/S2 and Regular Rhythm
Breast: Deferred by me
GI: Non Tender, Non Distended and Normal Bowel Sounds
Rectal: Deferred by Provider
Genito-urinary: Deferred by me
Musculoskeletal: No Clubbing, No Cyanosis, Edema, Left Lower Extremity (Trace) and Edema, Right Lower Extremity (Trace)
Skin: Warm
Neuro: Alert and AO x 3
Hematologic/Lymphatic: No Lymphadenopathy
Laboratory Results
-
08/29/24 15:37
08/29/24 15:37
Laboratory Results
Total Bilirubin 3.6 mg/dl (0.2-1.3) H 08/29/24 15:37
AST 36 U/L (17-59) 08/29/24 15:37
ALT 31 U/L (0-50) 08/29/24 15:37
Alkaline Phosphatase 98 U/L (38-126) 08/29/24 15:37
Data Reviewed
-
Diagnostic Radiology: Image Personally Visualized and interpreted and Report Reviewed by me
Lab Data: Discussed with Physician
Old Records: Reviewed
Impression/Plan
-
IMPRESSION:
74-year-old with a complex medical history notable for CHF, CAD, a flutter status post ablation, status post pacemaker, hypertension and chronic back pain status post intrathecal morphine pump who presents to the emergency department with
exacerbation of his back pain secondary to compression fracture and found to have a pneumonia in the setting of increased confusion and some shortness of breath. He is satting 98% on 2 L oxygen.
PLAN:
1. PNA - Patient with sob, leukocytosis and some confusion as well as left lower lobe opacity. U/A is clear. Requires some supplemental oxygen. C/W CAP.
- admit to med/surg
- check legionella ag, influenza
- continue ceftriaxone, azithromycin unless influenza +
- cough suppression
- nebs and supplemental oxygen
2. Back pain - Chronic back pain, no myelopathy.
- patient own intrathecal morphine pump
- continue lyrica
- bowel regimen
3. CHF - Euvolemic with trace peripheral edema. No evidence of acute exacerbation
- continue home regimen of metoprolol succinate, jardiance
- continue plavix/statin for CAD
- reduced furosemide to 40mg po bid from 80
4. Arrythmia - V paced rhythm
- continue metoprolol
- continue eliquis
5. Hyponatremia - Mild hyponatremia. Patient on lasix and somewhat dry. Also with severe pain corresponding with siadh.
- fluid restrictions
- continue diuretics at reduced dose of 40mg po bid
- pain control
- follow labs
- treat anemia as above
DVT PPX - on apixaban
Code Status - DNR
[2024-08-29] MEDS: ULTRAM 50 MG PO (23:26)
[2024-08-29] MEDS: LYRICA 150 MG PO (23:26)
[2024-08-29 23:36] VITALS: BP 154/99
[2024-08-30 00:05] VITALS: BP 137/92
[2024-08-30 00:49] VITALS: BMI 28.6
[2024-08-30 00:50] VITALS: BMI 28.6
--- NOTE | 2024-08-30 01:01 | PTCARENOTE ---
Patient arrived to unit around midnight via stretcher with dx of PNA. [address] at 2 liters. Patient denies SOB at current time. Patient was initially asleep on admission. Pleasant and cooperative with care. Patient has noted intrathecal Morphine
pump. Bed alarm applied to bed. Patient educated on using call barone for assist. Oriented to unit.
[2024-08-30 06:00] VITALS: BMI 28.4
[2024-08-30 07:00] VITALS: BP 111/67
[2024-08-30 08:30] LABS: Hematocrit 39.7 % (39.0-52.0); Mean Corp Hgb Conc. 35.3 g/dL (33.0-37.0); Mean Corpuscular Hgb 30.6 pg (27.0-31.0); Mean Corpuscular Volume 86.7 fL (80.0-94.0); Mean Platelet Volume 10.7 fL (7.4-10.4); Platelet Count 142 10^3/uL (130-400); Red Blood Cell Count 4.58 10^6/uL (4.70-6.10); Red Cell Dist. Width 15.7 % (11.5-14.5); White Blood Cell Count 12.2 10^3/uL (4.8-10.8)
[2024-08-30 09:04] LABS: Blood Urea Nitrogen 29 mg/dl (9-20); Carbon Dioxide 25 mmol/L (22-30); Chloride 94 mmol/L (98-107); Estimated Creatinine Clearance 99 ml/min; Glucose 123 mg/dl (70-99); Potassium 3.1 mmol/L (3.5-5.1); Sodium 134 mmol/L (135-145); eGFR > 60.00
[2024-08-30] MEDS: LYRICA 150 MG PO ×3 (10:26→21:12)
[2024-08-30] MEDS: FARXIGA 10 MG PO (10:26)
[2024-08-30] MEDS: PLAVIX 75 MG PO (10:26)
[2024-08-30] MEDS: ZETIA 10 MG PO (10:28)
[2024-08-30] MEDS: TOPROL XL 25 MG PO ×2 (10:28→21:13)
[2024-08-30] MEDS: MUCINEX 600 MG PO ×2 (10:29→21:12)
[2024-08-30] MEDS: ELIQUIS 5 MG PO ×2 (10:29→21:12)
[2024-08-30] MEDS: ULTRAM 50 MG PO ×2 (10:45→19:29)
[2024-08-30 12:06] VITALS: BP 112/72; PULSE 80; O2SAT 96
[2024-08-30] MEDS: LYRICA 75 MG PO (13:45)
[2024-08-30] MEDS: TYLENOL 650 MG PO (13:45)
--- NOTE | 2024-08-30 14:07 | W.PN.HOSP.TC ---
Today's Communication/Plan
-
cont abx
Assessment / Plan
Assessment / Plan
Physical Exam
General: Appears in Distress
HEENT: NormoCephalic, Anicteric, Moist mucous membranes, Atraumatic, PERRLA and Oxygen
Respiratory: Clear
Cardiac: S1/S2 and Regular Rhythm
Breast: Deferred by me
GI: Non Tender, Non Distended and Normal Bowel Sounds
Rectal: Deferred by Provider
Genito-urinary: Deferred by me
Musculoskeletal: No Clubbing, No Cyanosis, Edema, Left Lower Extremity (Trace) and Edema, Right Lower Extremity (Trace)
Skin: Warm
Neuro: Alert and AO x 3
Hematologic/Lymphatic: No Lymphadenopathy
74-year-old with a complex medical history notable for CHF, CAD, a flutter status post ablation, status post pacemaker, hypertension and chronic back pain status post intrathecal morphine pump who presents to the emergency department with
exacerbation of his back pain secondary to compression fracture and found to have a pneumonia in the setting of increased confusion and some shortness of breath. He is satting 98% on 2 L oxygen.
PLAN:
#Sepsis
-2/2 to #Pneumonia
-Left lower lobe airspace disease
- continue ceftriaxone, azithromycin
-flu negative
- cough suppression
- nebs and supplemental oxygen
-inc bharath
#Back pain - Chronic back pain, no myelopathy.
- patient own intrathecal morphine pump
- continue lyrica
- bowel regimen
#Acute metabolic encephalopathy
� Mostly secondary to sepsis
� Improved with antibiotics, resuscitation
Continue to monitor
# CHF - Chronic HFpEF
-Euvolemic No evidence of acute exacerbation
- continue home regimen of metoprolol succinate, jardiance
- continue plavix/statin for CAD
- Cont home lasix dose
#Arrythmia - V paced rhythm
- continue metoprolol
- continue eliquis
#Hyponatremia - Mild hyponatremia.
-most likely siadh
-monitor
#Hypokalemia
-monitor and replete
#OHS/STEPHANIE
-CPAP qhs
DVT PPX - on apixaban
Code Status - DNR
Anticipated Discharge: 24 - 48 hours
Subjective/Interval History
-
Date of Service: August 30, 2024
confusion appears to have resolved
Objective Data
-
Labs:
Laboratory Results
08/30/24
07:31
WBC 12.2 H
Hgb 14.0
Hct 39.7
Plt Count 142 D
Sodium 134 L
Potassium 3.1 L
Chloride 94 L
Carbon Dioxide 25
BUN 29 H
Creatinine 0.6 L
Glucose 123 H
Calcium 9.0
Vital Signs:
Vital Signs
Temp Pulse Resp BP Pulse Ox
98.3 F 82 20 111/67 96
08/30/24 07:00 08/30/24 07:00 08/30/24 07:00 08/30/24 07:00 08/30/24 07:00
I&O
08/29/24 08/30/24 08/31/24
06:59 06:59 06:59
Intake Total 240 / 240
Balance 240 / 240
Review of Systems
-
History Source: Patient
All other systems: Not reviewed unless documented
Physical Exam
-
General: Well Developed
HEENT: Normocephalic
Respiratory: Clear to Auscultation
Cardiac: Regular Rhythm and S1/S2
GI: Soft
Musculoskeletal: No Clubbing
Skin: Warm
Neuro: Awake, Alert and Oriented
Data Reviewed
-
Diagnostic Radiology: Image personally visualized and interpreted and Report Reviewed by me
Labs: Labs Reviewed by me
[2024-08-30 15:00] VITALS: BP 117/55
--- NOTE | 2024-08-30 16:14 | CM ---
clinical product manager reviewed patient's chart and met with patient and patient lives with his spouse in 2 story home, patient is independent with adl's and uses a cane with ambulation, patient is currently on oxygen and did not require oxygen prior to
admission.
PCP: Dr Gonzalez Garcia
Pharmacy: [facility] in [place].
Plan; Home when stable.
[2024-08-30] MEDS: LASIX 40 MG PO (16:22)
[2024-08-30] MEDS: LIPITOR 40 MG PO (16:22)
[2024-08-30] MEDS: KCL ELIXIR 40 MEQ PO (16:23)
[2024-08-30] MEDS: KCL 20 MEQ PO (21:13)
[2024-08-30] MEDS: ZITHROMAX INFUSION 250 IV (21:13)
[2024-08-30] MEDS: STERILE WATER FOR INJECTION 10 ML IV (21:14)
[2024-08-30] MEDS: ROCEPHIN 1000 MG IV (21:14)
[2024-08-30 23:47] VITALS: BP 102/71
[2024-08-31 06:00] VITALS: BMI 28.3
[2024-08-31 07:40] VITALS: BP 125/82
[2024-08-31] MEDS: FARXIGA 10 MG PO (08:00)
[2024-08-31] MEDS: LASIX 80 MG PO (08:00)
[2024-08-31] MEDS: TOPROL XL 25 MG PO ×2 (08:00→20:22)
[2024-08-31] MEDS: MUCINEX 600 MG PO ×2 (08:00→20:22)
[2024-08-31] MEDS: LYRICA 150 MG PO ×3 (08:00→22:36)
[2024-08-31] MEDS: DESENEX/MITRAZOL/ZEASORB 1 APPLIC TOPICAL ×2 (08:00→20:32)
[2024-08-31] MEDS: KCL 20 MEQ PO ×2 (08:00→20:22)
[2024-08-31] MEDS: ELIQUIS 5 MG PO ×2 (08:00→20:22)
[2024-08-31] MEDS: ZETIA 10 MG PO (08:00)
[2024-08-31] MEDS: PLAVIX 75 MG PO (08:00)
[2024-08-31 08:02] LABS: Hematocrit 39.4 % (39.0-52.0); Mean Corp Hgb Conc. 35.5 g/dL (33.0-37.0); Mean Corpuscular Hgb 29.9 pg (27.0-31.0); Mean Platelet Volume 11.6 fL (7.4-10.4); Platelet Count 132 10^3/uL (130-400); Red Blood Cell Count 4.69 10^6/uL (4.70-6.10); Red Cell Dist. Width 16.1 % (11.5-14.5); White Blood Cell Count 11.3 10^3/uL (4.8-10.8)
[2024-08-31 08:39] LABS: Blood Urea Nitrogen 28 mg/dl (9-20); Calcium 9.6 mg/dl (8.4-10.2); Carbon Dioxide 25 mmol/L (22-30); Chloride 98 mmol/L (98-107); Estimated Creatinine Clearance 85 ml/min; Glucose 150 mg/dl (70-99); Potassium 4.6 mmol/L (3.5-5.1); Sodium 136 mmol/L (135-145); eGFR > 60.00
[2024-08-31] MEDS: LYRICA 75 MG PO (13:00)
--- NOTE | 2024-08-31 15:25 | CM ---
Chart reviewed and case management rn met with patient and spouse and reviewed discharge options patient and spouse are agreeable to skilled placement and referrals sent to [facility] and [facility].
Plan; Skilled placement at [facility] or [facility]. Referrals sent.
--- NOTE | 2024-08-31 15:34 | W.PN.HOSP.TC ---
Today's Communication/Plan
-
Continue antibiotics
Medically clear, DC ready, pillowcase maker aware
Assessment / Plan
Assessment / Plan
Physical Exam
General: Appears in Distress
HEENT: NormoCephalic, Anicteric, Moist mucous membranes, Atraumatic, PERRLA and Oxygen
Respiratory: Clear
Cardiac: S1/S2 and Regular Rhythm
Breast: Deferred by me
GI: Non Tender, Non Distended and Normal Bowel Sounds
Rectal: Deferred by Provider
Genito-urinary: Deferred by me
Musculoskeletal: No Clubbing, No Cyanosis, Edema, Left Lower Extremity (Trace) and Edema, Right Lower Extremity (Trace)
Skin: Warm
Neuro: Alert and AO x 3
Hematologic/Lymphatic: No Lymphadenopathy
74-year-old with a complex medical history notable for CHF, CAD, a flutter status post ablation, status post pacemaker, hypertension and chronic back pain status post intrathecal morphine pump who presents to the emergency department with
exacerbation of his back pain secondary to compression fracture and found to have a pneumonia in the setting of increased confusion and some shortness of breath. He is satting 98% on 2 L oxygen.
PLAN:
#Sepsis
-2/2 to #Pneumonia
-Left lower lobe airspace disease
- continue ceftriaxone, azithromycin
-flu negative
- cough suppression
- nebs and supplemental oxygen
-inc bharath
#Back pain - Chronic back pain, no myelopathy.
- patient own intrathecal morphine pump
- continue lyrica
- bowel regimen
#Acute metabolic encephalopathy, resolved
� Mostly secondary to sepsis
� Improved with antibiotics, resuscitation
Continue to monitor
# CHF - Chronic HFpEF
-Euvolemic No evidence of acute exacerbation
- continue home regimen of metoprolol succinate, jardiance
- continue plavix/statin for CAD
- Cont home lasix dose
#Arrythmia - V paced rhythm
- continue metoprolol
- continue eliquis
#Hyponatremia - Mild hyponatremia.
-most likely siadh
-monitor
#Hypokalemia
-monitor and replete
#OHS/STEPHANIE
-CPAP qhs
DVT PPX - on apixaban
Code Status - DNR
Anticipated Discharge: Within 24 hours
Subjective/Interval History
-
Date of Service: August 31, 2024
Symptoms improved, no acute events overnight
Objective Data
-
Labs:
Laboratory Results
08/31/24
06:54
WBC 11.3 H
Hgb 14.0
Hct 39.4
Plt Count 132
Sodium 136
Potassium 4.6 D
Chloride 98
Carbon Dioxide 25
BUN 28 H
Creatinine 0.7
Glucose 150 H
Calcium 9.6
Vital Signs:
Vital Signs
Temp Pulse Resp BP Pulse Ox
97.7 F 86 17 125/82 98
08/31/24 07:40 08/31/24 08:00 08/31/24 07:40 08/31/24 08:00 08/31/24 07:40
I&O
08/30/24 08/31/24 09/01/24
06:59 06:59 06:59
Intake Total 1690 / 1690
Output Total 1100 / 1100 200 / 200
Balance 590 / 590 -200 / -200
Review of Systems
-
History Source: Patient
All other systems: Not reviewed unless documented
Physical Exam
-
General: Well Developed
HEENT: Normocephalic
Respiratory: Clear to Auscultation
Cardiac: Regular Rhythm and S1/S2
GI: Soft
Musculoskeletal: No Clubbing
Skin: Warm
Neuro: Awake, Alert and Oriented
Data Reviewed
-
Diagnostic Radiology: Image personally visualized and interpreted and Report Reviewed by me
Labs: Labs Reviewed by me
[2024-08-31 15:45] VITALS: BP 99/66
[2024-08-31] MEDS: LASIX 40 MG PO (17:00)
[2024-08-31] MEDS: LIPITOR 40 MG PO (17:30)
[2024-08-31] MEDS: ULTRAM 50 MG PO (17:33)
[2024-08-31] MEDS: ZITHROMAX INFUSION 250 IV (22:37)
[2024-08-31] MEDS: STERILE WATER FOR INJECTION 10 ML IV (22:37)
[2024-08-31] MEDS: ROCEPHIN 1000 MG IV (22:38)
[2024-08-31 23:40] VITALS: BP 107/67
[2024-09-01 06:00] VITALS: BMI 28.4
[2024-09-01 08:02] VITALS: BP 105/69
[2024-09-01] MEDS: FARXIGA 10 MG PO (08:42)
[2024-09-01] MEDS: ELIQUIS 5 MG PO (08:42)
[2024-09-01] MEDS: MUCINEX 600 MG PO (08:42)
[2024-09-01] MEDS: LASIX 80 MG PO (08:42)
[2024-09-01] MEDS: KCL 20 MEQ PO (08:42)
[2024-09-01] MEDS: LYRICA 150 MG PO ×2 (08:42→16:09)
[2024-09-01] MEDS: PLAVIX 75 MG PO (08:42)
[2024-09-01] MEDS: TOPROL XL 25 MG PO (08:42)
[2024-09-01] MEDS: ZETIA 10 MG PO (08:42)
[2024-09-01] MEDS: DESENEX/MITRAZOL/ZEASORB 1 APPLIC TOPICAL (08:43)
[2024-09-01] MEDS: TYLENOL 650 MG PO (08:44)
[2024-09-01 09:12] LABS: Hematocrit 40.5 % (39.0-52.0); Hemoglobin 13.7 g/dL (13.0-18.0); Mean Corp Hgb Conc. 33.8 g/dL (33.0-37.0); Mean Corpuscular Hgb 29.5 pg (27.0-31.0); Mean Corpuscular Volume 87.3 fL (80.0-94.0); Mean Platelet Volume 10.4 fL (7.4-10.4); Platelet Count 157 10^3/uL (130-400); Red Blood Cell Count 4.64 10^6/uL (4.70-6.10); Red Cell Dist. Width 16.2 % (11.5-14.5); White Blood Cell Count 13.2 10^3/uL (4.8-10.8)
[2024-09-01 09:59] LABS: Blood Urea Nitrogen 21 mg/dl (9-20); Calcium 9.1 mg/dl (8.4-10.2); Carbon Dioxide 28 mmol/L (22-30); Chloride 95 mmol/L (98-107); Estimated Creatinine Clearance 85 ml/min; Glucose 153 mg/dl (70-99); Potassium 4.4 mmol/L (3.5-5.1); Sodium 135 mmol/L (135-145); eGFR > 60.00
[2024-09-01] MEDS: ULTRAM 50 MG PO (10:35)
[2024-09-01] MEDS: LYRICA 75 MG PO (12:29)
--- NOTE | 2024-09-01 12:38 | W.PN.HOSP.TC ---
Today's Communication/Plan
-
Transition to cefdinir to complete 7 days antibiotic
Discharge to SNF
Assessment / Plan
Assessment / Plan
#Sepsis secondary to community-acquired pneumonia
-Left lower lobe airspace disease, has improved on CTX and azithromycin
-Viral respiratory panel negative
-Has not required supplemental oxygen, no hypoxia
-Will transition from ceftriaxone to cefdinir to complete 5 more days available
#Chronic back pain
-patient own intrathecal morphine pump
-continue lyrica
-bowel regimen
#Chronic HFpEF
-No evidence of acute exacerbation
-Home regimen includes SGLT2i; no MRA for GDMT
-Patient is also on beta-tess and, Lasix twice
-Euvolemic as of this morning
#AFL s/p CTI ablation
-Home medications include beta-tess and Eliquis
-Heart rate normal sinus rhythm as of this morning
#CAD s/p PCI X4
-home medications include beta-tess, high intensity statin, Plavix
-No DAPT due to use of Eliquis, also proximity from procedure
#OHS/STEPHANIE
-CPAP qhs
-No known significant pulmonary hypertension
#S/p PPM for bifascicular block
DVT PPX: apixaban BID
Diet: 4 g sodium restricted
Code Status: DNR
Anticipated Discharge: Today
Subjective/Interval History
-
Date of Service: September 01, 2024
Seen and examined at the bedside. No acute events overnight. AFVSS this morning.
He was having some pain related to his trigeminal neuralgia, worst in the right jaw. Had ice, was about to receive tramadol. Otherwise no fevers, leukocyte count is stable.
Outside of the pain he denies any acute complaints including chest discomfort, dyspnea, fevers or chills, GI issues, urinary issues, bleeding or bruising, paresthesias or weakness
Objective Data
-
Labs:
Laboratory Results
09/01/24
08:15
WBC 13.2 H
Hgb 13.7
Hct 40.5
Plt Count 157
Sodium 135
Potassium 4.4
Chloride 95 L
Carbon Dioxide 28
BUN 21 H
Creatinine 0.7
Glucose 153 H
Calcium 9.1
Vital Signs:
Vital Signs
Temp Pulse Resp BP Pulse Ox
98.5 F 86 17 105/69 96
09/01/24 08:02 09/01/24 08:02 09/01/24 08:02 09/01/24 08:02 09/01/24 08:02
I&O
08/31/24 09/01/24 09/02/24
06:59 06:59 06:59
Intake Total 1690 / 1690 1736 / 1736
Output Total 1100 / 1100 1400 / 1400
Balance 590 / 590 336 / 336
Review of Systems
-
History Source: Patient
All other systems: Reviewed and negative
Physical Exam
-
General: Well Nourished, No Apparent Distress and Pain
HEENT: Normocephalic, Atraumatic, Moist Mucous Membranes and Anicteric
Respiratory: Clear to Auscultation and Non Labored Respirations; Negative Wheezes, Rales, Rhonchi or Accessory Resp Muscle Use
Cardiac: Regular Rhythm and S1/S2; Negative Murmur, Rub or Gallop
GI: Soft, Nontender, Nondistended and Normal Bowel Sounds
Musculoskeletal: No Clubbing, No Cyanosis and No Edema
Skin: Warm and Dry; Negative Rash or Jaundice
Neuro: AO x 3, Nonfocal/Grossly Intact and Central Nerve's Intact
Psych: Calm
Data Reviewed
-
Labs: Labs Reviewed by me and Discussed with Patient
--- NOTE | 2024-09-01 13:24 | CM ---
Addendum entered by Laura Olivo 09/01/24 15:03:
Patient has been approved for skilled placement for 5 days NRD 09/05/24 Auth [id number], follow up at [phone]. Patient will need w/c van.
[facility]
Report [phone]

Original Note:
senior software project manager reviewed patient's chart and met with patient and per physician patient is cleared for discharge today, case consultant reached out to PT to update notes, last PT notes are from 08/30/24. Patient will need w.c van transport spouse is aware
of copay.
[facility]

Dr Smith
[2024-09-01 13:27] VITALS: BP 117/79; PULSE 83; O2SAT 94
[2024-09-01 15:17] VITALS: BP 114/70
[2024-09-01] MEDS: LIPITOR 40 MG PO (16:09)
[2024-09-01] MEDS: LASIX 40 MG PO (16:09)
--- NOTE | 2024-09-02 11:53 | PN.CDI ---
CDI
- -
CDI:
Physician Documentation Request
Admit Date: 08/29/24 22:21
Dear Doctor Porsha,
Patient admitted for sepsis.
08/31 Hospitalist PN: 'Sepsis -2/2 to #Pneumonia...Acute metabolic encephalopathy, resolved� Mostly secondary to sepsis'
Please clarify the known or suspected type of the documented encephalopathy:
Toxic metabolic
Metabolic
Other
Use of terms such as suspected, likely, concern for, or probable (associated with a specific diagnosis that is being evaluated, monitored, or treated as if it exists) are acceptable and can be coded in the inpatient setting, when documented at the
time of discharge.
Thank you,
Mireya Parks RN, BSN
CDI Specialist
Available via [facility] text
Please use your independent medical judgment in providing your response.
--- NOTE | 2024-09-03 13:50 | W.DCSUMMARY ---
Discharge Summary
Discharge Data
Date of Admission: 08/29/24
Date of Discharge: 09/01/24
-
Pending Results: No
Hospital Course
74-year-old male with CAD s/p PCI to LAD/D1/RCA, AFL on Eliquis s/p ablation, s/p PPM, CAD, CHF, hypertension, pulmonary stenosis/tetralogy of Fallot s/p repair presented to the hospital with cough. Initial labs showed leukocytosis, x-ray with left
lower lobe opacity, new oxygen requirement on arrival. Was started on ceftriaxone and azithromycin. Viral panel negative, urine Legionella negative. Oxygen was weaned and he was transition to oral antibiotic to complete 7 days.
Discharge Plan
-
Patient Disposition: Residential/SNF
Discharge Diagnosis/Procedures: Community-acquired pneumonia
Condition: Good
Diet: No restrictions
Activity: As tolerated
Driving Restrictions: No driving for 24 hours
Bathing Restrictions: None
Blood Work: None
Others Tests: None
Other Services: PT and OT
Activity Restrictions/Additional Instructions:
After discharge from short-term rehab with family doctor
Instructions: Community-acquired pneumonia in adults
Referrals:
Gonzalez Garcia MD [Family Provider] -
Additional Discharge Medication Instructions: Continue with cefdinir 300 mg twice daily to complete 5 more days of antibiotic
Prescriptions:
New
cefdinir 300 mg capsule
300 mg PO Q12H 5 Days Qty: 10 0RF
pregabalin 75 mg Capsule
75 mg PO DAILY@1200 30 Days Qty: 30 0RF
pregabalin 75 mg Capsule
150 mg PO TID 30 Days Qty: 180 0RF
tramadol 50 mg Tablet
50 mg PO Q8HPRN PRN (Reason: breakthrough pain) 7 Days Qty: 20 0RF
Continued
metoprolol succinate 12.5 MG tablet extended release 24 hr
25 mg PO BID
Eliquis 5 MG tablet
5 mg PO BID 30 Days Qty: 60 0RF
Patient's Own Morphine Pump
0.9203 mg IV .VIA PUMP
Patient Comments:
04/24/24 lg: Per Dr Valdez
Implantable Medtronic 20 cc pump: morphine 5 mg/mL
continuous rate: 0.9203 mg / day (increased from 0.8363 mg/day on 04/23/24)
No bolus option
Refilled 04/23/24; next refill date 07/11/24; alarm data 07/28/24; battery change 10/2029
atorvastatin 40 mg Tablet
40 mg PO QPM
clopidogrel 75 mg Tablet
75 mg PO DAILY
ezetimibe [Zetia] 10 mg Tablet
10 mg PO DAILY
potassium chloride 20 mEq Tablet Extended Release
20 meq PO BID
Jardiance 10 mg Tablet
10 mg PO DAILY
furosemide 40 MG tablet
80 mg PO DAILY
furosemide 40 mg tablet
40 mg PO QPM
Discontinued
pregabalin 75 mg Capsule
75 mg PO DAILY@1200
pregabalin 150 mg Capsule
150 mg PO TID
tramadol 50 mg Tablet
50 mg PO Q8H PRN (Reason: breakthrough pain)
Discharge Orders:
Discharge Patient (As Directed); Ordered 09/01/24
Ordered By: Last Gil
Discharge Date and Time
Discharge Date/Time: 09/01/24 16:48
Print Language: LAO
== END 2024-09-01 16:48 | DRG 871 ==
LOC: 4 WEST ACU 22:21
PROVIDERS: Internal Medicine; Physician Assistant Medical; ADMITTING PHYSICIAN Internal Medicine; ATTENDING PHYSICIAN Internal Medicine; EMERGENCY PHYSICIAN Emergency Medicine; FAMILY PHYSICIAN Family Medicine
PROC: 5A09357 Assistance with Respiratory Ventilation, Less than 24 Consecutive Hours, Continuous Positive Airway Pressure (ICD-10-PCS; 2024-08-30)
DX: A41.9 Sepsis, unspecified organism (principal); G93.41 Metabolic encephalopathy; J18.9 Pneumonia, unspecified organism; E22.2 Syndrome of inappropriate secretion of antidiuretic hormone; M48.56XA Collapsed vertebra, not elsewhere classified, lumbar region, initial encounter for fracture; I45.2 Bifascicular block; C92.10 Chronic myeloid leukemia, BCR/ABL-positive, not having achieved remission; I50.32 Chronic diastolic (congestive) heart failure; I11.0 Hypertensive heart disease with heart failure; E78.00 Pure hypercholesterolemia, unspecified; G89.29 Other chronic pain; M54.50 Low back pain, unspecified; I25.10 Atherosclerotic heart disease of native coronary artery without angina pectoris; Z95.5 Presence of coronary angioplasty implant and graft; K21.9 Gastro-esophageal reflux disease without esophagitis; G50.0 Trigeminal neuralgia; I44.0 Atrioventricular block, first degree; R26.9 Unspecified abnormalities of gait and mobility; Z79.01 Long term (current) use of anticoagulants; Z79.02 Long term (current) use of antithrombotics/antiplatelets; Z79.84 Long term (current) use of oral hypoglycemic drugs; Z79.899 Other long term (current) drug therapy; Z95.0 Presence of cardiac pacemaker; Z86.79 Personal history of other diseases of the circulatory system; Z87.74 Personal history of (corrected) congenital malformations of heart and circulatory system
CPT/HCPCS: 71046; 80048; 80053; 81003; 81015; 85025; 85027; 87070; 87502; 96365; 96375; 97116; 97162; 97530; 99285

== ENCOUNTER 2024-10-15 18:54 | Inpatient (IN) | payer OTHER, SELFPAY ==
[2024-10-15] VITALS (7 sets, daily range): BP systolic 116–148; BP diastolic 74–93; BMI 29.2
[2024-10-15 15:39] LABS: % Basophils 0.8 % (0-2); % Eosinophils 1.1 % (0-6); % Immature Granulocytes 0.8 % (0-0.5); % Lymphocytes 17.6 % (20.5-51.1); % Monocytes 9.5 % (1.7-9.3); % Neutrophils 70.2 % (42.2-75.2); Absolute Basophils 0.1 10^3/uL (0-0.2); Absolute Eosinophils 0.2 10^3/uL (0-0.7); Absolute Immature Granulocytes 0.1 10^3/uL (0-0.05); Absolute Lymphocytes 2.3 10^3/uL (1.2-3.4); Absolute Monocytes 1.3 10^3/uL (0.1-0.6); Absolute Neutrophils 9.3 10^3/uL (1.4-6.5); Hematocrit 41.3 % (39.0-52.0); Hemoglobin 13.9 g/dL (13.0-18.0); Mean Corp Hgb Conc. 33.7 g/dL (33.0-37.0); Mean Corpuscular Hgb 30.5 pg (27.0-31.0); Mean Corpuscular Volume 90.8 fL (80.0-94.0); Mean Platelet Volume 9.7 fL (7.4-10.4); Nucleated Red Blood Cells % 0 % (-); Platelet Count 185 10^3/uL (130-400); Red Blood Cell Count 4.55 10^6/uL (4.70-6.10); Red Cell Dist. Width 17.3 % (11.5-14.5); White Blood Cell Count 13.2 10^3/uL (4.8-10.8)
--- NOTE | 2024-10-15 16:08 | ED.GENMED ---
History of Present Illness
General
Chief Complaint: Breathing Problem
Source: patient and spouse
Time Seen by Provider: 10/15/24 15:31
History of Present Illness
History of Present Illness:
74-year-old male presents to the emergency room complaining of shortness of breath, increased peripheral edema. Patient was also started on Keflex yesterday for suspected cellulitis in the left lower extremity. Patient has a history of heart
failure. His edema has been increasing over the past several days. No fever or chills. No chest pain. Patient has been compliant with his Lasix. He has been unable to get out of bed to weigh himself because of the edema.
Past History
Past History
ED Past Medical History: Arrthythmia, CAD, Cancer (CML), CHF, GERD, Hypercholesterolemia and ND
ED Past Surgical History: Appendectomy, Cardiac (Cardiac ablation, tetrology of fallot repair) and Cholecystectomy
Social History
Tobacco: Non-smoker
Alcohol: Former
Drug: None
Personal:
Living: with family
Employment: Employed ([employer])
Family History
Family History: Other (Mother with diabetes)
Phy Exam
Physical Exam
Physical Exam:
General: Awake, Alert, Oriented X3. No acute distress.
Vitals: unremarkable
Head: Atraumatic
Eyes: Pupils equal, EOMI
Throat: Airway intact, no exudates
Neck: Trachea midline
Lungs: Crackles bilateral base
Heart: Regular rate, no murmurs
Abd: Soft, Nontender, No pulsatile mass
Neuro: Nonfocal
Skin: Warm, dry, no rash
Extremities: pulses equal b/l, 4+ edema
Scores
Heart Failure Risk
Heart Failure Risk Score: Yes
History of Stroke or TIA: No
History of intubation for respiratory distress: No
Heart rate on ED arrival >/= 110: No
SaO2 <90% on arrival on room air: No
HR >/=110 during 3min walk test (or too ill to perform test): Yes
ECG has acute ischemic changes: No
Urea >/=12mmol/L (BUN 33.6mg/dL): No
Serum CO2>/=35mmol/L: No
Troponin I or T elevated to ND Level (0.4mg/dL): No
NT-proBNP >/=5,000ng/L (5,000pg/ml): No
HF Risk Score: 2
Admission Status: MEDIUM RISK 9.2% Consider observation or discharge to home with homecare & f/u visit to PCP/Baggage Security Checker, or SNF for treatment
Course
Orders/Labs/Results
Orders:
Orders
10/15/24 14:48
Electrocardiogram (*1) Urgent
Reason for Study: Shortness of Breath
EKG- Treatment ONCE
Basic Metabolic Panel Urgent
10/15/24 15:27
Complete Blood Count/With Diff Urgent
NT-proBNP Urgent
10/15/24 16:07
CR Chest - 2 Views Urgent
Comment:
Reason For Exam: shortness of breath, edema
10/15/24 17:19
Furosemide [Lasix] 80 mg IV NOW STA
10/15/24 18:33
Admit/Transfer Patient As Directed
Co-Sign Provider:
Level of Care: Inpatient admission
Assign to:: Telemetry
Physician / Group: angelito pablo
Diagnosis: Acute on chronic CHF, right foot cellulitis from right toe/skin cut
Reason for Telemetry: Arrhythmia
Date to Stop Telemetry: 10/18/24
Time to Stop Telemetry: 11:00
Reason for Hospitalization: Acute on chronic CHF, right foot cellulitis from right toe/skin cut
Expected length of stay greater than two midnights?: Yes
ELOS- Estimated Length of Stay in days: 4
I certify the patient meets the requirements for IP care: Yes
10/15/24 18:34
Code Status As Directed
Resuscitation Status: Do not resuscitate
Reached after discussion with pt or family/Healthcare POA: Yes
Decision communicated with: Per patient
DNR Bracelet Application ONCE
10/15/24 18:36
PRN Pain Medication Management As Directed
May give lesser potent ordered pain med per pt: Yes
preference::
Protocol:: Medication orders for pain may be administered in a
manner that supports deferring to patient preference
when the pt is:
- Requesting an ordered lesser potent pain medication.
Least to most potent pain medications are defined
as: acetaminophen < NSAID < tramadol < opioids
(morphine, oxycodone, hydromorphone).
- Requesting a lesser dose of the same medication IF
ORDERED.
- Requesting a less intrusive route of administration
if both routes are prescribed by the provider (PO <
IV).
10/18/24 11:00
DC Protocol for Telemetry ONCE
Abnormal Lab Results
10/15/24 10/15/24
14:48 15:27
WBC 13.2 H 10^3/uL
(4.8-10.8)
RBC 4.55 L 10^6/uL
(4.70-6.10)
RDW 17.3 H %
(11.5-14.5)
Abs Immat Gran (auto) 0.1 H 10^3/uL
(0-0.05)
Absolute Neuts (auto) 9.3 H 10^3/uL
(1.4-6.5)
Absolute Monos (auto) 1.3 H 10^3/uL
(0.1-0.6)
Immature Gran % 0.8 H %
(0-0.5)
Lymphocytes % 17.6 L %
(20.5-51.1)
Monocytes % 9.5 H %
(1.7-9.3)
Sodium 130 L mmol/L
(135-145)
Chloride 91 L mmol/L
(98-107)
Creatinine 0.6 L mg/dL
(0.7-1.3)
Glucose 174 H mg/dl
(70-99)
10/15/24 15:27
10/15/24 15:27
Vital Signs
Initial and Last Documented VS:
Initial Vital Signs
Temp Pulse Resp BP Pulse Ox
97.8 F 85 18 135/79 98
10/15/24 15:00 10/15/24 15:00 10/15/24 15:00 10/15/24 15:00 10/15/24 15:00
Last Documented Vital Signs
Temp Pulse Resp BP Pulse Ox
97.8 F 101 30 121/74 97
10/15/24 15:00 10/15/24 18:00 10/15/24 17:00 10/15/24 18:00 10/15/24 17:00
MDM/Problems Addressed
Differential Diagnosis Includes:
Exacerbation of heart failure, anemia, renal failure, pneumonia
MDM/Problems Addressed:
Patient's physical exam is highly consistent with exacerbation of CHF. His BNP is elevated. Chest x-ray is not overly impressive for pulmonary edema. Patient valuated by cardiology. Patient will require hospitalization for aggressive diuresis.
80 mg of Lasix given here
*Radiology
Radiology exam reviewed: preliminary read by ED provider (Cardiomegaly, no pulmonary edema)
*Pulse Oximetry
Patient hypoxic: no
*EKG
Interpretation: abnormal
Heart Rate: 82
Rate: normal
Rhythm: ventricular paced
QRS Pattern: left bundle branch block
Ischemia: non-specific ST changes
*Diamond Finishing Supervisor Interpretation
Rate: normal
Interpretation: abnormal
Rhythm: ventricular paced
*Critical Care Note
Total Time (30-74mins, 75-104mins- exclusive of procedures): Not Applicable
ED Attending Note
-
Portions of this chart may have been created with voice recognition software.� Occasional wrong word or��sound alike� substitutions may have occurred due to the inherent limitations of voice recognition software.
Discharge Plan
Departure
Patient Disposition: Admit
Date of Disposition: 10/15/24
Time of Disposition: 17:21
Admit to: Telemetry
Presentation/result/management discussed w/ accepting MD/DO: Hospitalist
Condition: Fair
Discharge Problem:
CHF (congestive heart failure)
Prescriptions:
No Action
Eliquis 5 MG tablet
5 mg PO BID 30 Days Qty: 60 0RF
Patient's Own Morphine Pump
1.01 mg intrathecal .VIA PUMP
Patient Comments:
10/15/24: Per Dr Valdez
Implantable Medtronic 20 cc pump: morphine 5 mg/mL
Dose increased 10% x 0.9203 [September 2024]
No bolus option
Next refill date 11/07/24; alarm data 07/28/24; battery change 10/2029
atorvastatin 40 mg Tablet
40 mg PO DAILY
clopidogrel 75 mg Tablet
75 mg PO DAILY
ezetimibe [Zetia] 10 mg Tablet
10 mg PO DAILY
potassium chloride 20 mEq Tablet Extended Release
20 meq PO BID
Jardiance 10 mg Tablet
10 mg PO BID
tramadol 50 mg Tablet
50 mg PO Q8HPRN PRN (Reason: breakthrough pain) 7 Days Qty: 20 0RF
Rx Instructions:
10/15/24: filled #60 tablets/30 day supply on 09/18/24 at [id number]
furosemide 40 mg tablet
80 mg PO BID@0800,1700
metoprolol succinate 25 mg tablet extended release 24 hr
25 mg PO BID
pregabalin 150 mg capsule
150 mg PO TID
Rx Instructions:
10/15/24: filled #40 capsules/14 day supply on 09/26/24 at [id number]
cephalexin 500 mg capsule
500 mg PO BID
Rx Instructions:
cephalexin 500mg BID 10/14/24 thru 10/20/24
nitroglycerin 0.4 mg tablet, sublingual
0.4 mg sublingual Q5MPRN PRN (Reason: x 3 doses PRN chest pain)
Referrals:
Gonzalez Garcia MD [Family Provider] -
Discharge Date and Time
Print Language: NIGERIEN
[2024-10-15 16:13] LABS: NT-proBNP 3780 pg/ml
--- NOTE | 2024-10-15 16:30 | W.PN.CD ---
Addendum entered and electronically signed by Jun Leos MD 10/15/24 18:35:
I saw and examined the patient.
The LAN ENGINEER's note was reviewed and I agree with the note.
74-year-old male known to me. He has complex medical issues and complex cardiac issues he has tetralogy of Fallot status post VSD repair, severe pulmonary regurgitation by MRI, multivessel coronary artery disease including left main disease,
atrial flutter ablation, persistent atrial fibrillation pacemaker, CML, NSVT, chronic pain (back pain and pain related to trigeminal neuralgia), pain pump. Patient had a previous hospitalization at [facility] with heart failure and had alternating
bundle branch block. He was noted to have multivessel disease and was transferred down to [place] for further evaluation and potential bypass. However there were concerns regarding his overall medical condition and risk of surgery so plan was for him
to continue to improve and get a little stronger and then to reassess. Patient did go down to [place] for a follow-up but more recently canceled additional follow-up and today states he would not want to have additional surgery. He has had issues
with increased lower extremity edema and weight gain he is also had decreased mobility due to his painFor this reason he has not been weighed in the last week but his estimates that he is gained about 11 pounds in the last week. He is also
developed a sacral decubitus ulcer in addition he has recently been treated for cellulitis of the right foot. Today he had presented to our office and due to his overall appearance and concern with the amount of edema and acute on chronic left
heart failure he was sent to [facility].
HfpEF
-Diuresis with Lasix 80 mg IV twice daily
-Close monitoring of weights and I's and O's
-Monitor renal function and electrolytes.
.
Coronary artery disease. Multivessel disease. Currently without angina
-Continue with medical therapy
.
A-fib. Stable and rate controlled.
-Continue rate control and anticoagulation with Eliquis
.
Pacemaker. Implant at [facility] within the last 6 months
.
Severe pulmonic regurgitation based on MRI 04/2024
.
Tetralogy of Fallot. VSD repair
.
Cellulitis right foot patient reports improvement still with residual erythema.
-Continue treatment as directed by primary team
.
Sacral decubitus ulcer. Wound care directed by wound care team and primary team
.
Chronic pain patient has back pain and trigeminal neuralgia. Sees pain management and has a pain pump
.
Facial asymmetry left side has a bit of a facial droop he has had some facial asymmetry in the past says it looks worse today but she thinks it intermittently looks worst. In speaking with this patient's it is difficult to tell if this is
a change from baseline. May consider head CT.
Original Note:
Today's Communication / Plan
-
Lasix 80 IV BID, follow labs, weights, I/O's
Impression / Plan
-
74 y/o male (patient of Dr. Leos) with complex cardiac history including tetralogy of Fallot s/p VSD repair, CAD with LAD stent 2006, RCA stent 2011, LM and D1 stenting 2018, atrial flutter s/p ablation, pulmonary stenosis, 1st degree AVB,
bifascicular block, alternating BBB, NSVT, CML, hypertension, and trigeminal neuralgia. In April, he was at [facility] and a pacemaker was placed and CAD was treated medically. He was in the cardiology office today and sent here for management of CHF
exacerbation. He has had SOB and worsening LE edema.
[id number] HFpEF:
-echo 04/24/24: Left ventricular ejection fraction is 55-60%. Enlarged right ventricular size. Severely dilated atria. Mild tricuspid regurgitation. Estimated pulmonary artery pressure of 30-35 mmHg, assuming a right atrial pressure of 3 mmHg. Mild
pulmonic stenosis; peak/mean gradients are 12/7. Trace pulmonic regurgitation. Mildly dilated aortic root with Sinus of Valsalva measuring 3.9 cm.
-BNP 3780 (more elevated than usual)
-on Jardiance
-lasix 80 mg PO BID as OP. Await labs, then if stable plan for IV lasix (80 IV BID), which requires intensive monitoring
-weight not in yet, but family thinks dry weight is 175-180 lbs
CAD:
-severe, hx multiple stents
-stable without angina
-continue medical management: Eliquis/Plavix, atorvastatin, metoprolol
Pacemaker:
-stable
-follow telemetry
AFIB, persistent:
-continue Eliquis
Cellulitis:
-management per primary
-on ABX
Full consult uploaded to chart
Physical Exam
Vital Signs/Labs
Vital Signs
Temp Pulse Resp BP Pulse Ox
97.8 F 85 18 135/79 98
10/15/24 15:00 10/15/24 15:00 10/15/24 15:00 10/15/24 15:00 10/15/24 15:00
10/15/24 15:27
10/15/24
15:27
Arx-V-Tmennqebztr Pept 3780
Physical Exam
Constitutional: No acute distress
Cardiovascular: Rhythm & rate is regular
Respiratory: Respiratory effort normal and Lungs clear to auscul.
Neuro/Psych: AO x 3
Data Reviewed
-
Date of Service: October 15, 2024
EKG: Tracing Personally Visualized and interpreted (BACTERIOLOGIST FOOD rhythm)
Labs: Labs Reviewed by me
[2024-10-15 17:07] LABS: Blood Urea Nitrogen 15 mg/dl (9-20); Calcium 8.6 mg/dl (8.4-10.2); Carbon Dioxide 29 mmol/L (22-30); Chloride 91 mmol/L (98-107); Glucose 174 mg/dl (70-99); Potassium 3.5 mmol/L (3.5-5.1); Sodium 130 mmol/L (135-145); eGFR > 60.00
--- NOTE | 2024-10-15 17:55 | HPS.HSE ---
Family Physician
-
Family Physician: Gonzalez Garcia
Chief Complaint
-
Shortness of breath, leg edema, right toe and foot cellulitis
History of Present Illness
74-year-old male who was at his cardiology office today complaining of shortness of breath with worsening lower extremity edema he reports having difficulty getting out of his bed to weigh himself secondary to the leg edema. He was sent to ER for
admission. He also reports erythema to his right foot for the past month. He states he went to a customer support manager who cut his nail but wound up cutting the tip of his skin he has a blood blister present there with erythema extending from the toe onto
the anterior dorsal aspect of the foot. He was seen by his PCP 2 days ago and placed on Keflex 500 mg twice daily, which does not appropriate amount for this current infection. He denies fever, chills, chest pain, palpitations, cough, abdominal
pain, nausea, vomiting, diarrhea, urinary symptoms.
He had recent admission 08/29 - 09/01/2024 secondary to left lower lobe pneumonia treated with Rocephin and Zithromax transition to oral cefdinir on discharge.
His past medical history of chronic heart failure preserved EF 55-60%, CAD/MD Hx multiple stents LAD 2006, RCA 2011, LM and D1 stenting 2018, tetralogy of Fallot status post VSD repair, permanent pacemaker, persistent A-fib on Eliquis, atrial
flutter status post ablation, pulmonary stenosis, first-degree AV block, bifascicular block, alternating BBB, NSVT, CML, HTN, obstructive sleep apnea, GERD, constipation, trigeminal neuralgia, L1 compressive bulging disc, arthritis history of
cellulitis right foot x 1 month
Medical History
Past Medical History
Past Medical History: Reports Other
Additional Past Medical History:
chronic heart failure preserved EF 55-60%
CAD/MD Hx multiple stents LAD 2006, RCA 2011, LM and D1 stenting 2018
Permanent Pacemaker for bifascicular block
Persistent A-fib on Eliquis
Atrial flutter status post ablation
Tetralogy of Fallot status post VSD repair
Pulmonary stenosis
First-degree AV block
Bifascicular block
Alternating BBB
NSVT
CML
HTN
obstructive sleep apnea-uses CPAP
GERD
Constipation
Trigeminal neuralgia
Chronic back pain due to L1 compressive bulging disc on chronic opiates morphine via intrathecal pain pump
arthritis
history of cellulitis
Past Surgical History: Reports Other
Additional Past Surgical History:
morphine via intrathecal pain pump
Social History
Tobacco: Non-smoker
Alcohol: None
Drug: None
Personal:
Living: With Family ()
Employment: Retired
Family History
Family History: Not pertinent
Allergies / Home Medications
Allergies reflects when Allergies were last updated in [employer].
Home Medications with original date entered in [employer]
Allergy/Medication List:
Allergies
Allergy/AdvReac Type Severity Reaction Status Date / Time
fentanyl Allergy Nausea / Verified 08/21/24 15:40
Vomiting
scallops Allergy Vomiting Verified 08/21/24 15:40
Home Medications
apixaban 5 mg tablet (Eliquis) 5 mg PO BID Blood clot prevention/tx 30 days #60 tabs 12/27/20
Patient's Own Morphine Pump 1.01 mg intrathecal .VIA PUMP Pain 04/24/24
atorvastatin 40 mg tablet 40 mg PO DAILY High Cholesterol 08/29/24
clopidogrel 75 mg tablet 75 mg PO DAILY Blood Clot Prevention/Tx 08/29/24
empagliflozin 10 mg tablet (Jardiance) 10 mg PO BID heart failure/diabetes 08/29/24
ezetimibe 10 mg tablet (Zetia) 10 mg PO DAILY High Cholesterol 08/29/24
potassium chloride 20 mEq tablet,extended release 20 meq PO BID Electrolyte Repletion 08/29/24
tramadol 50 mg tablet 50 mg PO Q8HPRN PRN breakthrough pain 1 week #20 tabs 09/01/24
cephalexin 500 mg capsule 500 mg PO BID 10/14 thru 10/20/24 10/15/24
furosemide 40 mg tablet 80 mg PO BID@0800,1700 Fluid Retention/Swelling 10/15/24
metoprolol succinate 25 mg tablet,extended release 24 hr 25 mg PO BID Heart Disease/Condition 10/15/24
nitroglycerin 0.4 mg sublingual tablet 0.4 mg sublingual Q5MPRN PRN x 3 doses PRN chest pain 10/15/24
pregabalin 150 mg capsule 150 mg PO TID Pain 10/15/24
Review of Systems
-
History Source: Patient
A 12 point ROS was completed and negative except as noted: Yes
Constitutional: Denies Fever, Fatigue or Chills
EENT: Denies Sore Throat or Runny Nose
Respiratory: Reports Trouble Breathing; Denies Cough
Cardiac: Denies Chest Pain, Diaphoresis, Palpitations or Syncope
Abdomen/GI: Denies Abdominal Pain, Nausea, Vomiting, Diarrhea, Constipated, Bloody Stools or Black Stools
: Denies Dysuria, Frequency, Flank Pain, Incontinence, Difficulty Voiding, Urgency or Dark Urine
Musculoskeletal: Reports Edema (+3 edema dorsal pedal extending up to knees) and Other (Right foot great toe blood blister erythema extending from skin above toe down toe to the dorsal foot consistent with cellulitis); Denies Joint Pain
Skin: Reports Other (Bilateral arms covered in bruises, lower legs only scattered bruises secondary to patient's Eliquis); Denies Itching or Rash
Neurological: Denies Dizzy, Headache or Weakness
Endocrine: Reports No Symptoms
Hematologic/Lymphatic: Reports No Symptoms
Psych: Reports Calm
Physical Exam
Vital Signs
Vital Signs
Temp Pulse Resp BP Pulse Ox
97.8 F 105 30 116/79 97
10/15/24 15:00 10/15/24 17:00 10/15/24 17:00 10/15/24 16:00 10/15/24 17:00
Physical Exam
General: Conversant; No Pain, Fever or Chills
HEENT: NormoCephalic, Anicteric, PERRLA, [place] Conjunctivae and No Ptosis
Respiratory: Clear; No Wheezes, Rales or Rhonchi
Cardiac: S1/S2, Regular Rhythm and Peripheral Edema (+3 pedal edema dorsal feet up to knees bilaterally); No Murmur, Rub, Gallop or JVD
Breast: Deferred by me
GI: Soft, Non Tender, Non Distended, Normal Bowel Sounds and No Hepatosplenomegaly
Rectal: Deferred by Provider
Genito-urinary: Deferred by me
Musculoskeletal: No Clubbing, No Cyanosis, Edema, Left Lower Extremity (+3 pitting edema pedal up to knees), Edema, Right Lower Extremity (+3 pitting edema pedal up to knees) and Other (Right foot great toe blood blister erythema extending from skin
above toe down toe to the dorsal foot consistent with cellulitis); No Edema, Left Upper Extremity or Edema, Right Upper Extremity
Skin: Warm, Dry and Other (Bilateral arms covered in bruises, lower legs only scattered bruises secondary to patient's Eliquis); No Rash
Neuro: AO x 3, No Motor Deficits, Nonfocal/grossly intact and Other (Patient hard of hearing although denies states he has passed recent hearing tests); No Slurred Speech, Facial Droop, Tremors or Sedated
Psych: Calm (Gets agitated easily when asking medical history)
Laboratory Results
-
10/15/24 15:27
10/15/24 15:27
Data Reviewed
-
Lab Data: Labs Reviewed by me
Impression/Plan
-
Impression/plan:
Admit to telemetry
#Acute on chronic HFpEF EF 55-60%
-I/O, daily weights (dry weight 175-188 pounds per cardiology record)
-Consult WILIAM Leos at bedside
-BNP 3780 more elevated than usual per labs
-Continue Jardiance
-On outpatient Lasix 80 mg twice daily
-Will start Lasix 80 mg IV twice daily
2D echo 04/24/2024: EF 55 to 60%, wall motion consistent with conductive abnormality,
enlarged RVS, severely dilated left and right atrium, mitral TR, pulm arterial pressure 30-35 mmHg,
mild pulmonic stenosis peak mean gradient 12/7, trace pulmonic regurg,
mildly dilated aortic root with sinus of Valsalva measuring 3.9 cm
#Right toe cellulitis extending to right foot from skin cut while attempting to cut toenail
-Patient reports procedure was done by a customer support manager approximately 1 month ago
-He was started on Keflex 500 mg twice daily 2 days ago this is not an appropriate dose for the current infection
-I will increase Keflex 500 mg to 500 mg every 6 hours to finish on 10/20/2024
#HTN�benign
BP 121/74
-Continue metoprolol succinate 25 mg twice daily
#CML Dx 7 years ago -currently in remission x 3 years patient reports
-History of 3 types of chemo last 1 causing GI hemorrhage
WBC 13.2, PLT 185, Hgb 13.9�stable
#CAD/MD hx
#S/P LAD stent 2006, RCA stent 2011, LM and D1 stenting 2018
-Continue Eliquis/Plavix, atorvastatin, Zetia, metoprolol
#Permanent PACEMAKER �bifascicular block
#HX 1st degree AVB, bifascicular block, alternating BBB, NSVT
#Persistent A-fib
#Atrial flutter status post ablation in past
-Continue Eliquis 5 mg twice daily, metoprolol succinate 25 mg twice daily
#Dilated aortic root with sinus of Valsalva measuring 3.9 cm on 2D echo
#Tetralogy of Fallot s/p VSD repair
#Pulmonary stenosis hx
#GERD
-No PPI listed
#Trigeminal neuralgia
--Continue Lyrica 150 mg p.o. 3 times daily
#Constipation likely due to chronic pain pump
-Will have senna and MiraLAX as needed
#Chronic low back pain secondary to L1 compressive disc bulging on chronic opiates morphine via intrathecal pain pump
-Patient on own intrathecal morphine pump
-Continue tramadol 50 mg every 8 hours as needed breakthrough
#Obstructive sleep apnea
�CPAP at bedtime
DVT prophylaxis
Continue [employer] Eliquis 5 mg twice daily
DNR per patient
[2024-10-15] MEDS: LASIX 80 MG IV ×2 (18:00→23:41)
--- NOTE | 2024-10-15 18:37 | W.PN.UPDATE ---
Update Note
Progress Note Update
I saw and examined the patient.
The SUPERVIS[employer] or PA's note was reviewed and I agree with the note.
This note serves as an addendum to the H&P by quarry plant crusher operator Miya CAMPBELL
HPI
74M seen at cardiology office today complaining of shortness of breath with worsening lower extremity edema he reports having difficulty getting out of his bed to weigh himself secondary to the leg edema.
PHX
chronic heart failure preserved EF 55-60%, CAD/VT Hx multiple stents LAD 2006, RCA 2011, LM and D1 stenting 2018, tetralogy of Fallot status post VSD repair, permanent pacemaker, persistent A-fib on Eliquis, atrial flutter status post ablation,
pulmonary stenosis, first-degree AV block, bifascicular block, alternating BBB, NSVT, CML, HTN, obstructive sleep apnea, GERD, constipation, trigeminal neuralgia, L1 compressive bulging disc, arthritis history of cellulitis
Vital Signs
Temp Pulse Resp BP Pulse Ox
97.8 F 101 30 121/74 97
10/15/24 15:00 10/15/24 18:00 10/15/24 17:00 10/15/24 18:00 10/15/24 17:00
04/24/2024 ECHO
EF 55 to 60%, wall motion consistent with conductive abnormality, enlarged RVS, severely dilated left and right atrium, mitral TR, pulm arterial pressure 30-35 mmHg, mild pulmonic stenosis peak mean gradient 12/7, trace pulmonic regurg, mildly
dilated aortic root with sinus of Valsalva measuring 3.9 cm
ASSESSMENT & PLAN
Acute on chronic HFpEF EF 55-60%
- -BNP 3780 more elevated than usual per labs
- IV Lasix 80 BID
- I/O, daily weights (dry weight 175-188 pounds per cardiology record)
- Consult CBC Jessica Leos at bedside
- Continue Jardiance
- CBCcard
Persistent A-fib
HX Atrial flutter status post ablation in past
- Continue Eliquis 5 mg twice daily, metoprolol succinate 25 mg twice daily
DVT Px: on chr Eliquis
DNR
IP TLM
[2024-10-15] MEDS: DESENEX/MITRAZOL/ZEASORB 1 APPLIC TOPICAL (22:35)
[2024-10-15] MEDS: KEFLEX 500 MG PO (23:11)
[2024-10-15] MEDS: LYRICA 150 MG PO (23:11)
[2024-10-15] MEDS: TOPROL XL 25 MG PO (23:11)
[2024-10-15] MEDS: ELIQUIS 5 MG PO (23:12)
[2024-10-16] VITALS (9 sets, daily range): BP systolic 93–132; BP diastolic 58–86; PULSE 77; O2SAT 95; BMI 29.2
[2024-10-16 07:04] LABS: % Basophils 0.9 % (0-2); % Eosinophils 1.4 % (0-6); % Immature Granulocytes 1.2 % (0-0.5); % Lymphocytes 18.8 % (20.5-51.1); % Monocytes 9.6 % (1.7-9.3); % Neutrophils 68.1 % (42.2-75.2); Absolute Basophils 0.1 10^3/uL (0-0.2); Absolute Eosinophils 0.1 10^3/uL (0-0.7); Absolute Immature Granulocytes 0.1 10^3/uL (0-0.05); Absolute Lymphocytes 1.5 10^3/uL (1.2-3.4); Absolute Monocytes 0.8 10^3/uL (0.1-0.6); Absolute Neutrophils 5.5 10^3/uL (1.4-6.5); Hematocrit 34.3 % (39.0-52.0); Hemoglobin 11.8 g/dL (13.0-18.0); Mean Corp Hgb Conc. 34.4 g/dL (33.0-37.0); Mean Corpuscular Hgb 29.9 pg (27.0-31.0); Mean Corpuscular Volume 86.8 fL (80.0-94.0); Mean Platelet Volume 9.9 fL (7.4-10.4); Nucleated Red Blood Cells % 0 % (-); Platelet Count 158 10^3/uL (130-400); Red Blood Cell Count 3.95 10^6/uL (4.70-6.10); Red Cell Dist. Width 17.1 % (11.5-14.5)
[2024-10-16 07:33] LABS: ALT (SGPT) 21 U/L (0-50); AST (SGOT) 28 U/L (17-59); Albumin 3.1 g/dl (3.5-5.0); Alkaline Phosphatase 108 U/L (38-126); Blood Urea Nitrogen 14 mg/dl (9-20); Calcium 8.6 mg/dl (8.4-10.2); Carbon Dioxide 30 mmol/L (22-30); Chloride 90 mmol/L (98-107); Estimated Creatinine Clearance 85 ml/min; Glucose 165 mg/dl (70-99); Potassium 2.8 mmol/L (3.5-5.1); Sodium 131 mmol/L (135-145); Total Bilirubin 1.9 mg/dl (0.2-1.3); Total Protein 5.4 g/dl (6.3-8.2); eGFR > 60.00
[2024-10-16 08:28] LABS: Magnesium 1.9 mg/dl (1.6-2.3)
[2024-10-16] MEDS: LASIX IV (08:40)
[2024-10-16] MEDS: TOPROL XL PO (08:42)
[2024-10-16] MEDS: DESENEX/MITRAZOL/ZEASORB 1 APPLIC TOPICAL ×2 (08:48→21:52)
[2024-10-16] MEDS: KCL 270 MEQ IV (08:50)
[2024-10-16] MEDS: FARXIGA 10 MG PO (08:50)
[2024-10-16] MEDS: ELIQUIS 5 MG PO ×2 (08:50→20:10)
[2024-10-16] MEDS: ZETIA 10 MG PO (08:50)
[2024-10-16] MEDS: LIPITOR 40 MG PO (08:50)
[2024-10-16] MEDS: LYRICA 150 MG PO ×3 (08:50→21:51)
[2024-10-16] MEDS: PLAVIX 75 MG PO (08:50)
[2024-10-16] MEDS: KEFLEX 500 MG PO ×4 (08:50→21:51)
[2024-10-16] MEDS: KCL 40 MEQ PO ×2 (08:50→20:11)
--- NOTE | 2024-10-16 09:50 | W.PN.HOSP.TC ---
Today's Communication/Plan
-
See PN
Assessment / Plan
Assessment / Plan
74yo M with PMHx of A.fib s/p ablation and PPM, HFpEF, CAD not amendable for intervention as per cath in April 2024 transferred to [facility] for CABG, but was too deconditioned for Sx, so was planned for intervention upon improvement, MR, Hx of repaired
tetralogy of Fallot (at 24yo), CML, STEPHANIE, gout, trigeminal neuralgia, chronic pain came with 1 week of worsening b/l LE swelling, managed for CHF exacerbation
A/P:
#Acute on chronic HFpEF exacerbation
#Severe pulmonary regurgitation
frequent hospitalizations over past year
Lasix, daily weight and follow I&O, electrolytes
Dry weight 175lbs
Cardio consult
Hx of low CO on cath, questionable need in inotropes - will defer to card
#Hypokalemia
correct
#LLE cellulitis
minor redness
Keflex reasonable
#CAD, stable
#Tetralogy of Fallot s/p VSD repait
#Persistent Afib
#HLD
#gout
#trigeminal neuralgia
#Chronic pain with intrathecal pump
#STEPHANIE
cont home meds
cont home CPAP
DVT ppx on ELiquis
DNR/DNI
I have spent at least 59min reviewing chart, test results, communication with consultants and direct patient care
Anticipated Discharge: > 48 hours
Subjective/Interval History
-
Date of Service: October 16, 2024
Objective Data
-
Labs:
Laboratory Results
10/16/24 10/16/24
06:10 12:00
WBC 8.0
Hgb 11.8 L
Hct 34.3 L
Plt Count 158
Sodium 131 L Pending
Potassium 2.8 L Pending
Chloride 90 L Pending
Carbon Dioxide 30 Pending
BUN 14 Pending
Creatinine 0.7 Pending
Glucose 165 H Pending
Calcium 8.6 Pending
Total Bilirubin 1.9 H
AST 28
ALT 21
Alkaline Phosphatase 108
Vital Signs:
Vital Signs
Temp Pulse Resp BP Pulse Ox
97.7 F 81 18 105/60 96
10/16/24 07:00 10/16/24 07:00 10/16/24 07:00 10/16/24 08:40 10/16/24 07:00
I&O
10/15/24 10/16/24 10/17/24
06:59 06:59 06:59
Intake Total 120 / 120
Output Total 1350 / 1350
Balance -1230 / -1230
Review of Systems
-
History Source: Patient
All other systems: Reviewed and negative
Physical Exam
-
General: No Apparent Distress
HEENT: Normocephalic
Cardiac: Irregular Rhythm
GI: Soft, Nontender and Nondistended
Musculoskeletal: No Clubbing, No Cyanosis, Edema, Right Lower Extrem and Edema, Left Lower Extrem
Neuro: Awake, Alert, Oriented and AO x 3
Psych: Calm
[2024-10-16 12:50] LABS: Blood Urea Nitrogen 15 mg/dl (9-20); Calcium 8.8 mg/dl (8.4-10.2); Carbon Dioxide 29 mmol/L (22-30); Chloride 88 mmol/L (98-107); Estimated Creatinine Clearance 85 ml/min; Glucose 199 mg/dl (70-99); Potassium 3.4 mmol/L (3.5-5.1); Sodium 131 mmol/L (135-145); eGFR > 60.00
[2024-10-16] MEDS: LASIX 80 MG IV (18:03)
--- NOTE | 2024-10-16 18:09 | W.PN.CD ---
Today's Communication / Plan
-
Continue IV twice daily Lasix with intensive monitoring of lites and vital signs
Daily weight standing scale of possible
Impression / Plan
-
74 y/o male (patient of Dr. Leos) with complex cardiac history including tetralogy of Fallot s/p VSD repair, CAD with LAD stent 2006, RCA stent 2011, LM and D1 stenting 2018, atrial flutter s/p ablation, pulmonary stenosis, 1st degree AVB,
bifascicular block, alternating BBB, NSVT, CML, hypertension, and trigeminal neuralgia. In April, he was at [facility] and a pacemaker was placed and CAD was treated medically. He was in the cardiology office today and sent here for management of CHF
exacerbation. He has had SOB and worsening LE edema.
[id number] HFpEF:
-echo 04/24/24: Left ventricular ejection fraction is 55-60%. Enlarged right ventricular size. Severely dilated atria. Mild tricuspid regurgitation. Estimated pulmonary artery pressure of 30-35 mmHg, assuming a right atrial pressure of 3 mmHg. Mild
pulmonic stenosis; peak/mean gradients are 12/7. Trace pulmonic regurgitation. Mildly dilated aortic root with Sinus of Valsalva measuring 3.9 cm.
-BNP 3780 (more elevated than usual)
-on Jardiance
-COntinue IV Lasix 80 milligram IV twice daily which requires intensive monitoring of labs and vital signs.
-lasix 80 mg PO BID as OP. With right sided symptoms, would likely benefit from transition to torsemide on discharge.
-weight not in yet, but family thinks dry weight is 175-180 lbs
CAD:
-severe, hx multiple stents
-stable without angina
-continue medical management: Eliquis/Plavix, atorvastatin, metoprolol
Pacemaker:
-stable
-follow telemetry
AFIB, persistent:
-continue Eliquis
Cellulitis:
-management per primary
-on ABX
Subjective:
He thinks he is urinating a lot to the IV Lasix, he is negative although weight does not reflect this, he cannot recall if he was weighed in the bed or standing scale
Physical Exam
Vital Signs/Labs
Vital Signs
Temp Pulse Resp BP Pulse Ox
98.4 F 82 20 99/66 95
10/16/24 11:00 10/16/24 11:00 10/16/24 11:00 10/16/24 11:00 10/16/24 11:00
10/15/24 10/16/24 10/17/24
06:59 06:59 06:59
Actual Weight 84.397 kg
10/16/24 06:10
10/16/24 11:47
Magnesium 1.9 mg/dl (1.6-2.3) 10/16/24 06:10
10/15/24
15:27
Djm-X-Shwkyhubwis Pept 3780
Physical Exam
Constitutional: No acute distress and Comfortable
Cardiovascular: Rhythm & rate is regular, Pedal edema present (2+ up to the thigh), JVD present and S1S2 is normal
Respiratory: Respiratory effort normal, Lungs clear to auscul., Wheeze Absent, Crackles Absent and Rhonchi Absent
Neuro/Psych: AO x 3
Data Reviewed
-
Date of Service: October 16, 2024
EKG: Other (Telemetry V paced Mr. Monzon having response albeit slow with IV Lasix we will continue current doses though, he thinks he is urinating more than usual. Hopefully will get a standing scale tomorrow. I have skipping Sunday for today
will come back tomorrow)
[2024-10-16] MEDS: TOPROL XL 25 MG PO (20:10)
[2024-10-17] VITALS (7 sets, daily range): BP systolic 93–125; BP diastolic 60–76; PULSE 87; O2SAT 93; BMI 29.4
[2024-10-17 06:53] LABS: % Basophils 0.7 % (0-2); % Eosinophils 1.7 % (0-6); % Immature Granulocytes 1.2 % (0-0.5); % Lymphocytes 24.8 % (20.5-51.1); % Monocytes 10.4 % (1.7-9.3); % Neutrophils 61.2 % (42.2-75.2); Absolute Basophils 0.1 10^3/uL (0-0.2); Absolute Eosinophils 0.1 10^3/uL (0-0.7); Absolute Immature Granulocytes 0.1 10^3/uL (0-0.05); Absolute Lymphocytes 1.7 10^3/uL (1.2-3.4); Absolute Monocytes 0.7 10^3/uL (0.1-0.6); Absolute Neutrophils 4.2 10^3/uL (1.4-6.5); Hematocrit 34.4 % (39.0-52.0); Hemoglobin 11.6 g/dL (13.0-18.0); Mean Corp Hgb Conc. 33.7 g/dL (33.0-37.0); Mean Corpuscular Hgb 29.7 pg (27.0-31.0); Mean Platelet Volume 9.7 fL (7.4-10.4); Nucleated Red Blood Cells % 0 % (-); Platelet Count 163 10^3/uL (130-400); Red Blood Cell Count 3.91 10^6/uL (4.70-6.10); Red Cell Dist. Width 17.3 % (11.5-14.5); White Blood Cell Count 6.9 10^3/uL (4.8-10.8)
[2024-10-17 07:16] LABS: ALT (SGPT) 19 U/L (0-50); AST (SGOT) 27 U/L (17-59); Albumin 2.9 g/dl (3.5-5.0); Alkaline Phosphatase 101 U/L (38-126); Blood Urea Nitrogen 15 mg/dl (9-20); Calcium 8.8 mg/dl (8.4-10.2); Carbon Dioxide 29 mmol/L (22-30); Chloride 95 mmol/L (98-107); Estimated Creatinine Clearance 85 ml/min; Glucose 126 mg/dl (70-99); Potassium 3.9 mmol/L (3.5-5.1); Sodium 133 mmol/L (135-145); Total Bilirubin 1.7 mg/dl (0.2-1.3); Total Protein 5.3 g/dl (6.3-8.2); eGFR > 60.00
[2024-10-17 08:06] LABS: Direct Bilirubin 0.4 mg/dl (0.0-0.4); LDH 310 U/L (120-246)
--- NOTE | 2024-10-17 08:38 | VNURNOTE ---
Chart reviewed. Patient is current with [facility] nursing, PT. Will continue to follow hospital course and DC plans.
[2024-10-17] MEDS: FARXIGA 10 MG PO (09:00)
[2024-10-17] MEDS: TOPROL XL 25 MG PO ×2 (09:00→19:45)
[2024-10-17] MEDS: KEFLEX 500 MG PO ×4 (09:01→21:08)
[2024-10-17] MEDS: ZETIA 10 MG PO (09:01)
[2024-10-17] MEDS: PLAVIX 75 MG PO (09:01)
[2024-10-17] MEDS: LIPITOR 40 MG PO (09:01)
[2024-10-17] MEDS: DESENEX/MITRAZOL/ZEASORB 1 APPLIC TOPICAL ×2 (09:02→19:44)
[2024-10-17] MEDS: ELIQUIS 5 MG PO ×2 (09:02→19:44)
[2024-10-17] MEDS: LYRICA 150 MG PO ×3 (09:06→21:09)
[2024-10-17] MEDS: LASIX 80 MG IV ×2 (09:07→16:58)
--- NOTE | 2024-10-17 10:36 | W.PN.HOSP.TC ---
Today's Communication/Plan
-
no weightloss overnight, but LE looks better, swelling decreased. Will cont same Lasix for now, defer further mgmt to cardio. If still ineffective - will need metolazone
Assessment / Plan
Assessment / Plan
74yo M with PMHx of A.fib s/p ablation and PPM, HFpEF, CAD not amendable for intervention as per cath in April 2024 transferred to [facility] for CABG, but due to high risk surgery patient decided against it, MR, Hx of repaired tetralogy of Fallot (at
24yo), CML, STEPHANIE, gout, trigeminal neuralgia, chronic pain came with 1 week of worsening b/l LE swelling, managed for CHF exacerbation
A/P:
#Acute on chronic HFpEF exacerbation
#Severe pulmonary regurgitation
frequent hospitalizations over past year
Lasix, daily weight and follow I&O, electrolytes
Dry weight 175lbs
Cardio consult
#Hypokalemia
correct
#NSVT
follow telemetry
#LLE cellulitis
minor redness
Keflex reasonable
#CAD, stable
#Tetralogy of Fallot s/p VSD repair
#Persistent Afib
#HLD
#gout
#trigeminal neuralgia
#Chronic pain with intrathecal pump
#STEPHANIE
cont home meds
cont home CPAP
DVT ppx on ELiquis
DNR/DNI
I have spent at least 39min reviewing chart, test results, communication with consultants and direct patient care
Anticipated Discharge: > 48 hours
Subjective/Interval History
-
Date of Service: October 17, 2024
Objective Data
-
Labs:
Laboratory Results
10/17/24
06:26
WBC 6.9
Hgb 11.6 L
Hct 34.4 L
Plt Count 163
Sodium 133 L
Potassium 3.9
Chloride 95 L
Carbon Dioxide 29
BUN 15
Creatinine 0.7
Glucose 126 H
Calcium 8.8
Total Bilirubin 1.7 H
AST 27
ALT 19
Alkaline Phosphatase 101
Vital Signs:
Vital Signs
Temp Pulse Resp BP Pulse Ox
98.1 F 86 19 110/67 97
10/17/24 07:00 10/17/24 07:00 10/17/24 07:00 10/17/24 07:00 10/17/24 07:00
I&O
10/16/24 10/17/24 10/18/24
06:59 06:59 06:59
Intake Total 120 / 120 750 / 750
Output Total 1350 / 1350 1880 / 1880
Balance -1230 / -1230 -1130 / -1130
Review of Systems
-
History Source: Patient
All other systems: Reviewed and negative
Physical Exam
-
General: No Apparent Distress and Comfortable
Respiratory: Clear to Auscultation
Cardiac: Regular Rhythm
GI: Soft, Nontender and Nondistended
Musculoskeletal: No Clubbing, No Cyanosis, Edema, Right Lower Extrem and Edema, Left Lower Extrem
Neuro: Awake, Alert, Oriented and AO x 3
Psych: Calm
--- NOTE | 2024-10-17 10:37 | W.PN.CD ---
Today's Communication / Plan
-
-Diuresis has been slow will add metolazone this pm
-Add compression
-Monitor telemetry
Impression / Plan
-
74 y/o male (patient of Dr. Leos) with complex cardiac history including tetralogy of Fallot s/p VSD repair, CAD with LAD stent 2006, RCA stent 2011, LM and D1 stenting 2018, atrial flutter s/p ablation, pulmonary stenosis, 1st degree AVB,
bifascicular block, alternating BBB, NSVT, CML, hypertension, and trigeminal neuralgia. In April, he was at [facility] and a pacemaker was placed and CAD was treated medically. He was in the cardiology office today and sent here for management of CHF
exacerbation. He has had SOB and worsening LE edema.
Mmxtq-[id number] HFpEF:
-echo 04/24/24: Left ventricular ejection fraction is 55-60%. Enlarged right ventricular size. Severely dilated atria. Mild tricuspid regurgitation. Estimated pulmonary artery pressure of 30-35 mmHg, assuming a right atrial pressure of 3 mmHg. Mild
pulmonic stenosis; peak/mean gradients are 12/7. Trace pulmonic regurgitation. Mildly dilated aortic root with Sinus of Valsalva measuring 3.9 cm.
-BNP 3780 (more elevated than usual)
-on Jardiance
-Continue IV Lasix 80 milligram IV twice daily which requires intensive monitoring of labs and vital signs.
-Diuresis has been slow will add metolazone this pm
Add compression (Tubigrips)
-lasix 80 mg PO BID as OP. With right sided symptoms, would likely benefit from transition to torsemide on discharge.
-weight not in yet, but family thinks dry weight is 175-180 lbs
CAD:
-severe, hx multiple stents
-stable without angina
-continue medical management: Eliquis/Plavix, atorvastatin, metoprolol
Pacemaker:
-stable
-follow telemetry
AFIB, persistent:
-continue Eliquis
NSVT: 13 seconds of asx,
-Continue beta-tess
-Keep K and mag replete
-Monitor on telemetry
Cellulitis:
-management per primary
-on ABX
Subjective:
He thinks he is urinating a lot to the IV Lasix, he is negative although weight does not reflect this, he cannot recall if he was weighed in the bed or standing scale
Physical Exam
Vital Signs/Labs
Vital Signs
Temp Pulse Resp BP Pulse Ox
98.1 F 86 19 110/67 97
10/17/24 07:00 10/17/24 07:00 10/17/24 07:00 10/17/24 07:00 10/17/24 07:00
10/16/24 10/17/24 10/18/24
06:59 06:59 06:59
Actual Weight 84.397 kg 84.992 kg
10/17/24 06:26
10/17/24 06:26
Magnesium 2.0 mg/dl (1.6-2.3) 10/17/24 06:26
10/15/24
15:27
Yiw-H-Sagyasijulx Pept 3780
Physical Exam
Constitutional: No acute distress
Cardiovascular: JVD pressure is normal, Systolic murmur absent, Diastolic murmur absent, Rhythm/rate is irregular and Pedal edema present (Trace bilaterally)
Respiratory: Respiratory effort normal, Lungs clear to auscul., Wheeze Absent, Crackles Absent and Rhonchi Absent
Neuro/Psych: AO x 3
Data Reviewed
-
Date of Service: October 17, 2024
Medical Decision Making: Review of Case with other Provider (Dr. Saldivar will give metolazone this afternoon)
EKG: Other (A-fib with controlled response, PVCs, 13 seconds of NSVT)
--- NOTE | 2024-10-17 11:42 | CM ---
Pt seen bedside. Initial assessment completed.
Pt lives w/ spouse in [place]- 2 steps to enter from the front door. No steps to enter from garage, pt uses garage entrance
Pt prev. independent w/ use of walker. Per pt has grab bar in the bathroom to lift from toilet. No other DME identified
Current w/ [facility]
Was at [facility] for SNF in the past
Address, point of contact and insurance verified
PCP: Dr. Gonzalez Garcia
Pharmacy: [facility]
Denies financial insecurities
Discussed current SNF recommendation per PT/OT. Pt is agreeable to SNF and is interested in [facility] again. Pt did not identify any other SNFs at this time. SNF referral completed in [facility]
Plan: SNF; pending bed availability closer to d/c
--- NOTE | 2024-10-17 13:29 | PN.CDI ---
CDI
- -
CDI:
Physician Documentation Request
Admit Date: 10/15/24 18:54
Dear Doctor Yariel,
Patient admitted with acute on chronic diastolic CHF.
10/16 Nursing skin assessment, 'Stage 2 gluteal cleft pressure injury, POA.'
Physician documentation of the type and location of wounds is required for compliant documentation. Based on the above clinical findings and your assessment, please provide the following in your progress note:
Type (etiology) of ulcer/wound:
- Pressure (decubitus) ulcer
- Other
- Unable to determine
For a pressure ulcer, please also include the stage* of the ulcer:
- Stage 1 - Skin intact, non-blanchable redness
- Stage 2 - Partial thickness loss of dermis, includes intact or open blister
- Stage 3 - Full thickness tissue not including bone, tendon or muscle
- Stage 4 - Full thickness tissue loss, including exposed bone, tendon or muscle
- Unstageable - Full thickness loss in which the base of the ulcer is covered by slough (yellow, alan, kilgore, green or brown) and/or eschar (alan, brown or black) in the wound bed.
- Unable to determine
Use of terms such as suspected, likely, concern for, or probable (associated with a specific diagnosis that is being evaluated, monitored, or treated as if it exists) are acceptable and can be coded in the inpatient setting, when documented at the
time of discharge.
Thank you,
Reema CARR,RN,CCDS
CDI Specialist
Available via tiger text
Please use your independent medical judgment in providing your response.
*Source: National Pressure Ulcer Advisory Panel (NPUAP)
[2024-10-17] MEDS: ZAROXOLYN 2.5 MG PO (16:23)
[2024-10-17] MEDS: TYLENOL 650 MG PO (21:08)
[2024-10-18 03:00] VITALS: BP 121/76
[2024-10-18] MEDS: MIRALAX 17 GRAMS PO (03:57)
[2024-10-18 06:00] VITALS: BMI 28.1
[2024-10-18 07:30] VITALS: BP 107/78; BP 120/74
[2024-10-18 08:12] LABS: % Basophils 0.9 % (0-2); % Lymphocytes 23.5 % (20.5-51.1); % Monocytes 10.2 % (1.7-9.3); % Neutrophils 62.4 % (42.2-75.2); Absolute Basophils 0.1 10^3/uL (0-0.2); Absolute Eosinophils 0.2 10^3/uL (0-0.7); Absolute Immature Granulocytes 0.1 10^3/uL (0-0.05); Absolute Lymphocytes 1.9 10^3/uL (1.2-3.4); Absolute Monocytes 0.8 10^3/uL (0.1-0.6); Absolute Neutrophils 5.1 10^3/uL (1.4-6.5); Hematocrit 38.6 % (39.0-52.0); Hemoglobin 13.1 g/dL (13.0-18.0); Mean Corp Hgb Conc. 33.9 g/dL (33.0-37.0); Mean Corpuscular Hgb 29.6 pg (27.0-31.0); Mean Corpuscular Volume 87.3 fL (80.0-94.0); Mean Platelet Volume 9.6 fL (7.4-10.4); Nucleated Red Blood Cells % 0 % (-); Platelet Count 180 10^3/uL (130-400); Red Blood Cell Count 4.42 10^6/uL (4.70-6.10); Red Cell Dist. Width 17.4 % (11.5-14.5); White Blood Cell Count 8.1 10^3/uL (4.8-10.8)
[2024-10-18] MEDS: KEFLEX 500 MG PO ×4 (08:22→21:12)
[2024-10-18] MEDS: ZETIA 10 MG PO (08:22)
[2024-10-18] MEDS: FARXIGA 10 MG PO (08:22)
[2024-10-18] MEDS: TOPROL XL 25 MG PO ×2 (08:22→19:51)
[2024-10-18] MEDS: ELIQUIS 5 MG PO ×2 (08:23→19:51)
[2024-10-18] MEDS: LIPITOR 40 MG PO (08:23)
[2024-10-18] MEDS: PLAVIX 75 MG PO (08:23)
[2024-10-18] MEDS: LYRICA 150 MG PO ×3 (08:24→21:11)
[2024-10-18] MEDS: LASIX 80 MG IV (08:24)
[2024-10-18] MEDS: DESENEX/MITRAZOL/ZEASORB 1 APPLIC TOPICAL ×2 (08:25→19:51)
[2024-10-18 09:24] LABS: ALT (SGPT) 21 U/L (0-50); AST (SGOT) 34 U/L (17-59); Albumin 3.5 g/dl (3.5-5.0); Alkaline Phosphatase 122 U/L (38-126); Blood Urea Nitrogen 16 mg/dl (9-20); Calcium 9.1 mg/dl (8.4-10.2); Carbon Dioxide 33 mmol/L (22-30); Chloride 89 mmol/L (98-107); Estimated Creatinine Clearance 85 ml/min; Glucose 124 mg/dl (70-99); Potassium 2.5 mmol/L (3.5-5.1); Sodium 132 mmol/L (135-145); Total Protein 5.9 g/dl (6.3-8.2); eGFR > 60.00
[2024-10-18] MEDS: KCL 40 MEQ PO ×2 (10:05→19:51)
[2024-10-18] MEDS: KCL 270 MEQ IV ×2 (10:06→16:20)
--- NOTE | 2024-10-18 12:11 | W.PN.HOSP.TC ---
Today's Communication/Plan
-
further mgmt as per cardio
aggressive potassium repletion
Assessment / Plan
Assessment / Plan
74yo M with PMHx of A.fib s/p ablation and PPM, HFpEF, CAD not amendable for intervention as per cath in April 2024 transferred to [facility] for CABG, but due to high risk surgery patient decided against it, MR, Hx of repaired tetralogy of Fallot (at
24yo), CML, STEPHANIE, gout, trigeminal neuralgia, chronic pain came with 1 week of worsening b/l LE swelling, managed for CHF exacerbation with RH failure
A/P:
#Acute on chronic HFpEF exacerbation
#Severe pulmonary regurgitation
#RA severe dilation
#Mild aortic doilation 3.9cm
frequent hospitalizations over past year
Lasix, daily weight and follow I&O, electrolytes
Dry weight possibly 175lbs
Cardio consult: cont diuresis
#Hypokalemia
correct
#NSVT
follow telemetry
#LLE cellulitis
minor redness
Keflex reasonable
#CAD, stable
#Tetralogy of Fallot s/p VSD repair
#Persistent Afib
#HLD
#gout
#trigeminal neuralgia
#Chronic pain with intrathecal pump
#STEPHANIE
#
cont home meds
cont home CPAP
DVT ppx on ELiquis
DNR/DNI
I have spent at least 39min reviewing chart, test results, communication with consultants and direct patient care
Anticipated Discharge: > 48 hours
Subjective/Interval History
-
Date of Service: October 18, 2024
Objective Data
-
Labs:
Laboratory Results
10/18/24 10/18/24
07:55 14:00
WBC 8.1
Hgb 13.1
Hct 38.6 L
Plt Count 180
Sodium 132 L
Potassium 2.5 L* D Pending
Chloride 89 L
Carbon Dioxide 33 H
BUN 16
Creatinine 0.7
Glucose 124 H
Calcium 9.1
Total Bilirubin 2.0 H
AST 34
ALT 21
Alkaline Phosphatase 122
Vital Signs:
Vital Signs
Temp Pulse Resp BP Pulse Ox
97.8 F 93 18 107/78 96
10/18/24 07:30 10/18/24 07:30 10/18/24 07:30 10/18/24 07:30 10/18/24 07:30
I&O
10/17/24 10/18/24 10/19/24
06:59 06:59 06:59
Intake Total 750 / 750 720 / 720 200 / 200
Output Total 1880 / 1880 100 / 100 2725 / 2725
Balance -1130 / -1130 620 / 620 -2525 / -2525
Review of Systems
-
History Source: Patient
All other systems: Reviewed and negative
Physical Exam
-
General: Comfortable
HEENT: Normocephalic, Atraumatic and Moist Mucous Membranes
Respiratory: Clear to Auscultation
Cardiac: Irregular Rhythm
GI: Soft, Nontender and Nondistended
Musculoskeletal: Edema, Right Lower Extrem and Edema, Left Lower Extrem
Neuro: Awake, Alert, Oriented and AO x 3
Psych: Calm
[2024-10-18 13:57] LABS: Potassium 3.1 mmol/L (3.5-5.1)
--- NOTE | 2024-10-18 14:38 | W.PN.CD ---
Today's Communication / Plan
-
metolazone 2.5 mg given 10/17/2024. Patient 2 L negative over 24 hours but marked reduction in potassium. Holding on diuretic until additional potassium replacement. Will resume IV Lasix tomorrow
Impression / Plan
-
74 y/o male (patient of Dr. Leos) with complex cardiac history including tetralogy of Fallot s/p VSD repair, CAD with LAD stent 2006, RCA stent 2011, LM and D1 stenting 2018, atrial flutter s/p ablation, pulmonary stenosis, 1st degree AVB,
bifascicular block, alternating BBB, NSVT, CML, hypertension, and trigeminal neuralgia. In April, he was at [facility] and a pacemaker was placed and CAD was treated medically. He was in the cardiology office today and sent here for management of CHF
exacerbation. He has had SOB and worsening LE edema.
Lhonz-wx-nwjelsi HFpEF:
-echo 04/24/24: Left ventricular ejection fraction is 55-60%. Enlarged right ventricular size. Severely dilated atria. Mild tricuspid regurgitation. Estimated pulmonary artery pressure of 30-35 mmHg, assuming a right atrial pressure of 3 mmHg. Mild
pulmonic stenosis; peak/mean gradients are 12/7. Trace pulmonic regurgitation. Mildly dilated aortic root with Sinus of Valsalva measuring 3.9 cm.
-BNP 3780 (more elevated than usual)
-on Jardiance
-Continue IV Lasix 80 milligram IV twice daily which requires intensive monitoring of labs and vital signs.
-Diuresis had been slow. 1 dose of metolazone 2.5 mg given 10/17/2024. Patient 2 L negative over 24 hours but marked reduction in potassium. Holding on diuretic until additional potassium replacement. Will resume IV Lasix tomorrow
Add compression (Tubigrips)
-lasix 80 mg PO BID as OP. With right sided symptoms, would likely benefit from transition to torsemide on discharge.
- family thinks dry weight is 175-180 lbs
CAD:
-severe, hx multiple stents
-stable without angina
-continue medical management: Eliquis/Plavix, atorvastatin, metoprolol
Pacemaker:
-stable
-follow telemetry
AFIB, persistent:
-continue Eliquis
NSVT: 13 seconds of asx,
-Continue beta-tess
-Keep K and mag replete
-Monitor on telemetry
Cellulitis: Improving. Decreased erythema right foot
-management per primary
-on ABX
Subjective:
He thinks he is urinating a lot to the IV Lasix, he is negative although weight does not reflect this, he cannot recall if he was weighed in the bed or standing scale
Physical Exam
Vital Signs/Labs
Vital Signs
Temp Pulse Resp BP Pulse Ox
97.8 F 99 18 120/74 98
10/18/24 07:30 10/18/24 07:30 10/18/24 07:30 10/18/24 07:30 10/18/24 07:30
10/17/24 10/18/24 10/19/24
06:59 06:59 06:59
Actual Weight 84.992 kg 81.335 kg
10/18/24 07:55
10/18/24 13:34
Magnesium 2.0 mg/dl (1.6-2.3) 10/18/24 07:55
10/15/24
15:27
Zdx-T-Koqtrknpjie Pept 3780
Physical Exam
Constitutional: No acute distress
Cardiovascular: Rhythm & rate is regular
GI: Soft and Non tender
Neuro/Psych: Alert
Other: Other (Bilateral lower extremity edema appears less than on admission. Erythema of right foot has improved)
Data Reviewed
-
Date of Service: October 18, 2024
Medical Decision Making: Reviewed Test Results
X-Ray/CT/US/MRI/NUC/PET: Report Reviewed by me
Medical Tests (PFT, Pathology etc): Report Reviewed by me
Labs: Labs Reviewed by me
[2024-10-18 15:20] VITALS: BP 110/70
[2024-10-18 19:00] VITALS: BP 104/69
[2024-10-18 23:00] VITALS: BP 102/72
[2024-10-19 03:00] VITALS: BP 112/68
[2024-10-19 07:46] VITALS: BP 113/73
[2024-10-19 08:26] LABS: % Basophils 0.9 % (0-2); % Eosinophils 1.8 % (0-6); % Immature Granulocytes 1.2 % (0-0.5); % Lymphocytes 25.4 % (20.5-51.1); % Monocytes 12.2 % (1.7-9.3); % Neutrophils 58.5 % (42.2-75.2); Absolute Basophils 0.1 10^3/uL (0-0.2); Absolute Eosinophils 0.1 10^3/uL (0-0.7); Absolute Immature Granulocytes 0.1 10^3/uL (0-0.05); Absolute Neutrophils 4.6 10^3/uL (1.4-6.5); Hemoglobin 12.4 g/dL (13.0-18.0); Mean Corp Hgb Conc. 33.5 g/dL (33.0-37.0); Mean Corpuscular Hgb 29.5 pg (27.0-31.0); Mean Corpuscular Volume 88.1 fL (80.0-94.0); Mean Platelet Volume 9.5 fL (7.4-10.4); Nucleated Red Blood Cells % 0 % (-); Platelet Count 171 10^3/uL (130-400); Red Cell Dist. Width 17.8 % (11.5-14.5); White Blood Cell Count 7.8 10^3/uL (4.8-10.8)
[2024-10-19 08:43] LABS: ALT (SGPT) 19 U/L (0-50); AST (SGOT) 26 U/L (17-59); Albumin 3.2 g/dl (3.5-5.0); Alkaline Phosphatase 106 U/L (38-126); Blood Urea Nitrogen 15 mg/dl (9-20); Carbon Dioxide 32 mmol/L (22-30); Chloride 94 mmol/L (98-107); Estimated Creatinine Clearance 99 ml/min; Glucose 143 mg/dl (70-99); Potassium 3.5 mmol/L (3.5-5.1); Sodium 135 mmol/L (135-145); Total Bilirubin 1.6 mg/dl (0.2-1.3); Total Protein 5.7 g/dl (6.3-8.2); eGFR > 60.00
--- NOTE | 2024-10-19 08:43 | W.PN.HOSP.TC ---
Today's Communication/Plan
-
cont diuresis with daily labs - weight decreasing
Assessment / Plan
Assessment / Plan
74yo M with PMHx of A.fib s/p ablation and PPM, HFpEF, CAD not amendable for intervention as per cath in April 2024 transferred to [facility] for CABG, but due to high risk surgery patient decided against it, MR, Hx of repaired tetralogy of Fallot (at
24yo), CML, STEPHANIE, gout, trigeminal neuralgia, chronic pain came with 1 week of worsening b/l LE swelling, managed for CHF exacerbation with RH failure
A/P:
#Acute on chronic HFpEF exacerbation
#Severe pulmonary regurgitation
#RA severe dilation
#Mild aortic doilation 3.9cm
frequent hospitalizations over past year
Lasix, daily weight and follow I&O, electrolytes
Dry weight possibly 175lbs
Cardio consult: cont diuresis
#Hypokalemia
correct
#NSVT
follow telemetry
#LLE cellulitis
minor redness
Keflex reasonable
#CAD, stable
#Tetralogy of Fallot s/p VSD repair
#Persistent Afib
#HLD
#gout
#trigeminal neuralgia
#Chronic pain with intrathecal pump
#STEPHANIE
#
cont home meds
cont home CPAP
DVT ppx on ELiquis
DNR/DNI
I have spent at least 39min reviewing chart, test results, communication with consultants and direct patient care
Anticipated Discharge: 24 - 48 hours
Subjective/Interval History
-
Date of Service: October 19, 2024
Objective Data
-
Labs:
Laboratory Results
10/19/24
07:37
WBC 7.8
Hgb 12.4 L
Hct 37.0 L
Plt Count 171
Sodium 135
Potassium 3.5
Chloride 94 L
Carbon Dioxide 32 H
BUN 15
Creatinine 0.6 L
Glucose 143 H
Calcium 9.0
Total Bilirubin 1.6 H
AST 26
ALT 19
Alkaline Phosphatase 106
Vital Signs:
Vital Signs
Temp Pulse Resp BP Pulse Ox
98.6 F 82 18 113/73 97
10/19/24 07:46 10/19/24 07:46 10/19/24 07:46 10/19/24 07:46 10/19/24 07:46
I&O
10/18/24 10/19/24 10/20/24
06:59 06:59 06:59
Intake Total 720 / 720 975 / 975
Output Total 100 / 100 4275 / 4275
Balance 620 / 620 -3300 / -3300
Review of Systems
-
History Source: Patient
All other systems: Reviewed and negative
Physical Exam
-
General: No Apparent Distress
HEENT: Normocephalic
Respiratory: Clear to Auscultation
Cardiac: Irregular Rhythm
GI: Soft, Nontender and Nondistended
Musculoskeletal: No Clubbing, No Cyanosis, Edema, Right Lower Extrem and Edema, Left Lower Extrem
Neuro: Awake, Alert, Oriented and AO x 3
Psych: Calm
[2024-10-19] MEDS: LIPITOR 40 MG PO (09:00)
[2024-10-19] MEDS: TOPROL XL 25 MG PO ×2 (09:00→20:51)
[2024-10-19] MEDS: FARXIGA 10 MG PO (09:01)
[2024-10-19] MEDS: ZETIA 10 MG PO (09:01)
[2024-10-19] MEDS: PLAVIX 75 MG PO (09:01)
[2024-10-19] MEDS: LYRICA 150 MG PO ×3 (09:02→21:31)
[2024-10-19] MEDS: KEFLEX 500 MG PO ×3 (09:02→18:24)
[2024-10-19] MEDS: KCL 40 MEQ PO ×2 (09:03→20:50)
[2024-10-19] MEDS: ELIQUIS 5 MG PO ×2 (09:03→20:50)
[2024-10-19] MEDS: LASIX 80 MG IV ×2 (09:04→16:51)
[2024-10-19] MEDS: DESENEX/MITRAZOL/ZEASORB 1 APPLIC TOPICAL ×2 (09:04→20:49)
[2024-10-19 11:06] VITALS: BP 114/75
--- NOTE | 2024-10-19 11:24 | W.PN.CD ---
Today's Communication / Plan
-
feeling better
continue diuresis
IV lasix restarted.
Monitor potassium . if Potassium normal and creatinine tomorrow ,on lasix then may consider another metolazone 2.5mg
Impression / Plan
-
74 y/o male (patient of Dr. Leos) with complex cardiac history including tetralogy of Fallot s/p VSD repair, CAD with LAD stent 2006, RCA stent 2011, LM and D1 stenting 2018, atrial flutter s/p ablation, pulmonary stenosis, 1st degree AVB,
bifascicular block, alternating BBB, NSVT, CML, hypertension, and trigeminal neuralgia. In April, he was at [place] and a pacemaker was placed and CAD was treated medically. He was in the cardiology office today and sent here for management of CHF
exacerbation. He has had SOB and worsening LE edema.
Mbezv-ws-tvguxma HFpEF:
-echo 04/24/24: Left ventricular ejection fraction is 55-60%. Enlarged right ventricular size. Severely dilated atria. Mild tricuspid regurgitation. Estimated pulmonary artery pressure of 30-35 mmHg, assuming a right atrial pressure of 3 mmHg. Mild
pulmonic stenosis; peak/mean gradients are 12/7. Trace pulmonic regurgitation. Mildly dilated aortic root with Sinus of Valsalva measuring 3.9 cm.
-BNP 3780 (more elevated than usual)
-on Jardiance
-Continue IV Lasix 80 milligram IV twice daily which requires intensive monitoring of labs and vital signs.
-Diuresis had been slow. 1 dose of metolazone 2.5 mg given 10/17/2024. Patient 2 L negative over 24 hours but marked reduction in potassium. diuretic held and IV lasix restarted but not given more metolazone yet.
- family thinks dry weight is 175-180 lbs
CAD:
-severe, hx multiple stents
-stable without angina
-continue medical management: Eliquis/Plavix, atorvastatin, metoprolol
Pacemaker:
-stable
-follow telemetry
AFIB, persistent:
-continue Eliquis
NSVT: 13 seconds of asx,
-Continue beta-tess
-Keep K and mag replete
-Monitor on telemetry
Cellulitis: Improving. Decreased erythema right foot
-management per primary
-on ABX
Subjective:
He thinks he is urinating a lot to the IV Lasix, he is negative although weight does not reflect this, he cannot recall if he was weighed in the bed or standing scale
Physical Exam
Vital Signs/Labs
Vital Signs
Temp Pulse Resp BP Pulse Ox
97.9 F 92 17 114/75 98
10/19/24 11:06 10/19/24 11:06 10/19/24 11:06 10/19/24 11:06 10/19/24 11:06
10/18/24 10/19/24 10/20/24
06:59 06:59 06:59
Actual Weight 81.335 kg
10/19/24 07:37
10/19/24 07:37
Magnesium 2.0 mg/dl (1.6-2.3) 10/19/24 07:37
10/15/24
15:27
Ojs-F-Vrqmwdmuhhr Pept 3780
Physical Exam
Constitutional: No acute distress
Cardiovascular: Rhythm & rate is regular and Systolic murmur absent
Respiratory: Respiratory effort normal
GI: Soft
Neuro/Psych: Alert
Data Reviewed
-
Date of Service: October 19, 2024
Medical Decision Making: Reviewed Test Results
Medical Tests (PFT, Pathology etc): Report Reviewed by me
Labs: Labs Reviewed by me
[2024-10-19 15:34] VITALS: BP 103/63
[2024-10-19 20:36] VITALS: BP 115/70
[2024-10-19 23:18] VITALS: BP 116/70
[2024-10-20] VITALS (7 sets, daily range): BP systolic 98–118; BP diastolic 63–74; PULSE 87; O2SAT 97; BMI 28.1
[2024-10-20] MEDS: DESENEX/MITRAZOL/ZEASORB 1 APPLIC TOPICAL ×2 (08:25→21:02)
[2024-10-20] MEDS: KCL 40 MEQ PO ×2 (08:28→21:03)
[2024-10-20] MEDS: LASIX 80 MG IV ×2 (08:28→15:03)
[2024-10-20] MEDS: FARXIGA 10 MG PO (08:28)
[2024-10-20] MEDS: ELIQUIS 5 MG PO ×2 (08:28→21:03)
[2024-10-20] MEDS: TOPROL XL 25 MG PO ×2 (08:29→21:03)
[2024-10-20] MEDS: PLAVIX 75 MG PO (08:29)
[2024-10-20] MEDS: LYRICA 150 MG PO ×3 (08:29→21:03)
[2024-10-20] MEDS: ZETIA 10 MG PO (08:29)
[2024-10-20] MEDS: LIPITOR 40 MG PO (08:29)
[2024-10-20 09:09] LABS: % Basophils 0.9 % (0-2); % Immature Granulocytes 1.1 % (0-0.5); % Lymphocytes 18.8 % (20.5-51.1); % Monocytes 11.5 % (1.7-9.3); % Neutrophils 65.7 % (42.2-75.2); Absolute Basophils 0.1 10^3/uL (0-0.2); Absolute Eosinophils 0.2 10^3/uL (0-0.7); Absolute Immature Granulocytes 0.1 10^3/uL (0-0.05); Absolute Monocytes 1.2 10^3/uL (0.1-0.6); Absolute Neutrophils 6.9 10^3/uL (1.4-6.5); Hematocrit 40.2 % (39.0-52.0); Hemoglobin 13.4 g/dL (13.0-18.0); Mean Corp Hgb Conc. 33.3 g/dL (33.0-37.0); Mean Corpuscular Hgb 29.8 pg (27.0-31.0); Mean Corpuscular Volume 89.3 fL (80.0-94.0); Mean Platelet Volume 9.5 fL (7.4-10.4); Nucleated Red Blood Cells % 0 % (-); Platelet Count 186 10^3/uL (130-400); Red Cell Dist. Width 17.9 % (11.5-14.5); White Blood Cell Count 10.6 10^3/uL (4.8-10.8)
--- NOTE | 2024-10-20 09:17 | W.PN.CD ---
Today's Communication / Plan
-
continue IV lasix
hold on additional metolazone for now
check pending labs and potassium
need to ahve him ambulate more.
Impression / Plan
-
74 y/o male (patient of Dr. Leos) with complex cardiac history including tetralogy of Fallot s/p VSD repair, CAD with LAD stent 2006, RCA stent 2011, LM and D1 stenting 2018, atrial flutter s/p ablation, pulmonary stenosis, 1st degree AVB,
bifascicular block, alternating BBB, NSVT, CML, hypertension, and trigeminal neuralgia. In April, he was at [place] and a pacemaker was placed and CAD was treated medically. He was in the cardiology office today and sent here for management of CHF
exacerbation. He has had SOB and worsening LE edema.
Yafvt-jh-ucjwaca HFpEF:
-echo 04/24/24: Left ventricular ejection fraction is 55-60%. Enlarged right ventricular size. Severely dilated atria. Mild tricuspid regurgitation. Estimated pulmonary artery pressure of 30-35 mmHg, assuming a right atrial pressure of 3 mmHg. Mild
pulmonic stenosis; peak/mean gradients are 12/7. Trace pulmonic regurgitation. Mildly dilated aortic root with Sinus of Valsalva measuring 3.9 cm.
-BNP 3780 (more elevated than usual)
-on Jardiance
-Continue IV Lasix 80 milligram IV twice daily which requires intensive monitoring of labs and vital signs.
-Diuresis had been slow. 1 dose of metolazone 2.5 mg given 10/17/2024. Patient 2 L negative over 24 hours but marked reduction in potassium. diuretic held and IV lasix restarted but not given more metolazone yet.
- family thinks dry weight is 175-180 lbs
CAD:
-severe, hx multiple stents
-stable without angina
-continue medical management: Eliquis/Plavix, atorvastatin, metoprolol
Pacemaker:
-stable
-follow telemetry
AFIB, persistent:
-continue Eliquis
NSVT: 13 seconds. symptomatic . earlier this admit. stable ovenight,
-Continue beta-tess
Cellulitis: Improved. Decreased erythema right foot
-management per primary
-on ABX
decubitus ulcer
Subjective:
improving. edema down, weight down. still with volume to remove
Physical Exam
Vital Signs/Labs
Vital Signs
Temp Pulse Resp BP Pulse Ox
98.3 F 86 17 105/67 94
10/20/24 07:39 10/20/24 07:39 10/20/24 07:39 10/20/24 07:39 10/20/24 07:39
10/19/24 10/20/24 10/21/24
06:59 06:59 06:59
Actual Weight 81.221 kg
10/20/24 08:43
Magnesium 2.0 mg/dl (1.6-2.3) 10/19/24 07:37
10/15/24
15:27
Gzf-L-Gnfcieligpl Pept 3780
Physical Exam
Constitutional: No acute distress
Cardiovascular: Rhythm & rate is regular and Systolic murmur present
Respiratory: Wheeze Absent, Crackles Absent and Rhonchi Absent
GI: Non tender
Neuro/Psych: Alert
Other: Other (kendal lower extremity edma. decreasing)
Data Reviewed
-
Date of Service: October 20, 2024
[2024-10-20 09:37] LABS: ALT (SGPT) 20 U/L (0-50); AST (SGOT) 29 U/L (17-59); Albumin 3.6 g/dl (3.5-5.0); Alkaline Phosphatase 111 U/L (38-126); Blood Urea Nitrogen 16 mg/dl (9-20); Calcium 9.3 mg/dl (8.4-10.2); Carbon Dioxide 37 mmol/L (22-30); Chloride 88 mmol/L (98-107); Estimated Creatinine Clearance 85 ml/min; Glucose 229 mg/dl (70-99); Potassium 3.3 mmol/L (3.5-5.1); Sodium 134 mmol/L (135-145); Total Bilirubin 1.7 mg/dl (0.2-1.3); eGFR > 60.00
--- NOTE | 2024-10-20 14:59 | W.PN.HOSP.TC ---
Today's Communication/Plan
-
continue IV Lasix; follow Cards recs
continue PT/OT
Assessment / Plan
Assessment / Plan
74yo M with PMHx of A.fib s/p ablation and PPM, HFpEF, CAD not amendable for intervention as per cath in April 2024 transferred to [facility] for CABG, but due to high risk surgery patient decided against it, MR, Hx of repaired tetralogy of Fallot (at
24yo), CML, STEPHANIE, gout, trigeminal neuralgia, chronic pain came with 1 week of worsening b/l LE swelling, managed for CHF exacerbation with RH failure
Assessment:
Acute on chronic HFpEF exacerbation
Severe pulmonary regurgitation
RA severe dilation
Mild aortic dilation 3.9cm
- continue IV Lasix; requires intensive monitoring of I/Os, weights, Lytes
- Cardiology consulting
Hypokalemia
- continue BID dosing for now
NSVT
- follow telemetry. continue BB
LLE cellulitis
- completed Keflex course
CAD, stable
- continue Plavix/Statin
Tetralogy of Fallot s/p VSD repair
Persistent A.fib
- continue Eliquis/BB
HLD
- statin
gout
trigeminal neuralgia
Chronic pain with intrathecal pump
STEPHANIE
- continue CPAP
DVT ppx: Eliquis
Code: DNR/DNI
Anticipated Discharge: > 48 hours
Subjective/Interval History
-
Date of Service: October 20, 2024
no complaints today
feels like edema improving
Objective Data
-
Labs:
Laboratory Results
10/20/24
08:43
WBC 10.6
Hgb 13.4
Hct 40.2
Plt Count 186
Sodium 134 L
Potassium 3.3 L
Chloride 88 L
Carbon Dioxide 37 H
BUN 16
Creatinine 0.7
Glucose 229 H
Calcium 9.3
Total Bilirubin 1.7 H
AST 29
ALT 20
Alkaline Phosphatase 111
Vital Signs:
Vital Signs
Temp Pulse Resp BP Pulse Ox
98 F 86 20 98/66 99
10/20/24 11:42 10/20/24 11:42 10/20/24 11:42 10/20/24 11:42 10/20/24 11:42
I&O
10/19/24 10/20/24 10/21/24
06:59 06:59 06:59
Intake Total 975 / 975 1040 / 1040
Output Total 4275 / 4275 1850 / 1850
Balance -3300 / -3300 -810 / -810
Physical Exam
-
General: No Apparent Distress
HEENT: Normocephalic and Atraumatic
Respiratory: Negative Wheezes
Cardiac: Regular Rhythm and S1/S2
GI: Soft and Nontender
Genito-urinary: No Costovertebral Tender
Musculoskeletal: No Edema
Neuro: AO x 3
Hematologic / Lymphatic: No Lymphadenopathy
Psych: Calm
Data Reviewed
-
Total Time Spent with Patient (in minutes): 51
Labs: Labs Reviewed by me
--- NOTE | 2024-10-20 16:25 | CM ---
Chart reviewed. PT/OT cont to recommend SNF at d/c
Spoke w/ pt's spouse re d/c plan for SNF, she is agreeable to rehab and pt's chose of [facility]
CM informed that a referral to [facility] was prev submitted and they are willing to accept him once he is medically stable and pending bed availability.
Per hospitalist note, ADC is > 48 hours.
Spouse asked if pt would go by ambulance or is she able to transport herself. CM informed that pt is currently a mod assist x2 and she may need some support if she chooses to transport pt on her own. Per spouse, she will determine means of transport
closer to d/c.
Plan: SNF; [facility]
[2024-10-20] MEDS: ULTRAM 50 MG PO (17:40)
[2024-10-21 04:05] VITALS: BP 118/76
[2024-10-21 05:29] VITALS: BMI 28.0
[2024-10-21 06:26] VITALS: BP 121/78
--- NOTE | 2024-10-21 07:54 | W.PN.CD ---
Today's Communication / Plan
-
check labs pending
will need to reduce potassium supplementation when changing to PO and will need to monitor closely when spironolactone added
Consider transition to oral diuretic tomorrow in next 24 to 48 hours. Possible discharge in 48 hours
Impression / Plan
-
74 y/o male (patient of Dr. Leos) with complex cardiac history including tetralogy of Fallot s/p VSD repair, CAD with LAD stent 2006, RCA stent 2011, LM and D1 stenting 2018, atrial flutter s/p ablation, pulmonary stenosis, 1st degree AVB,
bifascicular block, alternating BBB, NSVT, CML, hypertension, and trigeminal neuralgia. In April, he was at [place] and a pacemaker was placed and CAD was treated medically. He was in the cardiology office today and sent here for management of CHF
exacerbation. He has had SOB and worsening LE edema.
Mwryr-bb-qolrzna HFpEF:
-echo 04/24/24: Left ventricular ejection fraction is 55-60%. Enlarged right ventricular size. Severely dilated atria. Mild tricuspid regurgitation. Estimated pulmonary artery pressure of 30-35 mmHg, assuming a right atrial pressure of 3 mmHg. Mild
pulmonic stenosis; peak/mean gradients are 12/7. Trace pulmonic regurgitation. Mildly dilated aortic root with Sinus of Valsalva measuring 3.9 cm.
-BNP 3780 (more elevated than usual)
-on Jardiance
-Continue IV Lasix 80 milligram IV twice daily which requires intensive monitoring of labs and vital signs.
-check labs . If potassium Ok then add Spironolactone.
- will transition to oral diuretic soon. Will try torsemide 40mg rather than the lasix 80mg
- family thinks dry weight is 175-180 lbs
- weight in hospital 84kg now down to 80.8KG
CAD:
-severe, hx multiple stents
-stable without angina
-continue medical management: Eliquis/Plavix, atorvastatin, metoprolol
Pacemaker:
-stable
-follow telemetry
AFIB, persistent:
-continue Eliquis
NSVT: 13 seconds. symptomatic . earlier this admit. stable ovenight,
-Continue beta-tess
Cellulitis: Improved. Decreased erythema right foot
-management per primary
-on ABX
decubitus ulcer
Subjective:
improving. edema down, weight down. still with volume to remove
Physical Exam
Vital Signs/Labs
Vital Signs
Temp Pulse Resp BP Pulse Ox
97.7 F 84 18 121/78 98
10/21/24 06:26 10/21/24 06:26 10/21/24 06:26 10/21/24 06:26 10/21/24 06:26
10/20/24 10/21/24 10/22/24
06:59 06:59 06:59
Actual Weight 81.221 kg 80.995 kg
10/20/24 08:43
Magnesium 2.0 mg/dl (1.6-2.3) 10/20/24 08:43
10/15/24
15:27
Cro-Z-Vsfkfvwwdcm Pept 3780
Physical Exam
Constitutional: No acute distress
Cardiovascular: Rhythm & rate is regular and Systolic murmur present
Respiratory: Respiratory effort normal
GI: Soft
Neuro/Psych: Alert
Other: Other (mild leg edema. significantly decreassed since admit)
Data Reviewed
-
Date of Service: October 21, 2024
Medical Decision Making: Reviewed Test Results
Medical Tests (PFT, Pathology etc): Report Reviewed by me
Labs: Labs Reviewed by me
[2024-10-21] MEDS: DESENEX/MITRAZOL/ZEASORB 1 APPLIC TOPICAL ×2 (08:01→20:10)
[2024-10-21] MEDS: FARXIGA 10 MG PO (08:02)
[2024-10-21] MEDS: ELIQUIS 5 MG PO ×2 (08:02→20:09)
[2024-10-21] MEDS: TOPROL XL 25 MG PO ×2 (08:03→20:14)
[2024-10-21] MEDS: PLAVIX 75 MG PO (08:03)
[2024-10-21] MEDS: LASIX 80 MG IV ×2 (08:03→15:31)
[2024-10-21] MEDS: LIPITOR 40 MG PO (08:03)
[2024-10-21] MEDS: KCL 40 MEQ PO (08:03)
[2024-10-21] MEDS: LYRICA 150 MG PO ×3 (08:03→21:36)
[2024-10-21] MEDS: ZETIA 10 MG PO (08:04)
[2024-10-21 08:32] LABS: ALT (SGPT) 18 U/L (0-50); AST (SGOT) 28 U/L (17-59); Albumin 3.3 g/dl (3.5-5.0); Alkaline Phosphatase 102 U/L (38-126); Blood Urea Nitrogen 15 mg/dl (9-20); Carbon Dioxide 34 mmol/L (22-30); Chloride 89 mmol/L (98-107); Estimated Creatinine Clearance 99 ml/min; Glucose 128 mg/dl (70-99); Potassium 3.4 mmol/L (3.5-5.1); Sodium 135 mmol/L (135-145); Total Bilirubin 1.8 mg/dl (0.2-1.3); Total Protein 5.8 g/dl (6.3-8.2); eGFR > 60.00
--- NOTE | 2024-10-21 09:42 | W.PN.HOSP.TC ---
Today's Communication/Plan
-
continue IV Lasix
consider Aldactone initiation will d/w Cards
Assessment / Plan
Assessment / Plan
74yo M with PMHx of A.fib s/p ablation and PPM, HFpEF, CAD not amendable for intervention as per cath in April 2024 transferred to [facility] for CABG, but due to high risk surgery patient decided against it, MR, Hx of repaired tetralogy of Fallot (at
24yo), CML, STEPHANIE, gout, trigeminal neuralgia, chronic pain came with 1 week of worsening b/l LE swelling, managed for CHF exacerbation with RH failure
Assessment:
Acute on chronic HFpEF exacerbation
Severe pulmonary regurgitation
RA severe dilation
Mild aortic dilation 3.9cm
- continue IV Lasix; requires intensive monitoring of I/Os, weights, lytes. Transition to oral diuretics in 24-48 hours.
- consider of addition of Aldactone
- Cardiology consulting
Hypokalemia
- received 1 dose today; will repeat AM BMP and adjust dosing as appropriate
NSVT
- follow telemetry. continue BB
LLE cellulitis
- completed Keflex course
CAD, stable
- continue Plavix/Statin
Tetralogy of Fallot s/p VSD repair
Persistent A.fib
- continue Eliquis/BB
HLD
- statin
gout
trigeminal neuralgia
Chronic pain with intrathecal pump
STEPHANIE
- continue CPAP
DVT ppx: Eliquis
Code: DNR/DNI
Dispo: SNF when cleared
Anticipated Discharge: > 48 hours
Subjective/Interval History
-
Date of Service: October 21, 2024
denies any new complaints at present
Objective Data
-
Labs:
Laboratory Results
10/21/24
06:09
Sodium 135
Potassium 3.4 L
Chloride 89 L
Carbon Dioxide 34 H
BUN 15
Creatinine 0.6 L
Glucose 128 H
Calcium 9.0
Total Bilirubin 1.8 H
AST 28
ALT 18
Alkaline Phosphatase 102
Vital Signs:
Vital Signs
Temp Pulse Resp BP Pulse Ox
97.7 F 84 18 121/78 98
10/21/24 06:26 10/21/24 06:26 10/21/24 06:26 10/21/24 06:26 10/21/24 06:26
I&O
10/20/24 10/21/24 10/22/24
06:59 06:59 06:59
Intake Total 1040 / 1040 1200 / 1200
Output Total 1850 / 1850 1300 / 1300
Balance -810 / -810 -100 / -100
Physical Exam
-
General: No Apparent Distress
HEENT: Normocephalic and Atraumatic
Respiratory: Negative Wheezes
Cardiac: Regular Rhythm and S1/S2
GI: Soft
Genito-urinary: No Costovertebral Tender
Neuro: AO x 3
Psych: Calm
Data Reviewed
-
Total Time Spent with Patient (in minutes): 51
Labs: Labs Reviewed by me
[2024-10-21 11:17] VITALS: BP 96/62
[2024-10-21] MEDS: TYLENOL 650 MG PO (13:21)
[2024-10-21] MEDS: ALDACTONE 12.5 MG PO (14:55)
[2024-10-21 15:11] VITALS: BP 97/62
[2024-10-21 20:33] VITALS: BP 97/55
[2024-10-21 23:19] VITALS: BP 115/69
[2024-10-22] VITALS (7 sets, daily range): BP systolic 82–133; BP diastolic 55–80; BMI 27.8
[2024-10-22] MEDS: ZETIA 10 MG PO (08:00)
[2024-10-22] MEDS: FARXIGA 10 MG PO (08:00)
[2024-10-22] MEDS: LYRICA 150 MG PO ×3 (08:00→21:50)
[2024-10-22] MEDS: LIPITOR 40 MG PO (08:00)
[2024-10-22] MEDS: ALDACTONE 12.5 MG PO (08:01)
[2024-10-22] MEDS: PLAVIX 75 MG PO (08:01)
[2024-10-22] MEDS: ELIQUIS 5 MG PO ×2 (08:03→19:53)
[2024-10-22] MEDS: TOPROL XL 25 MG PO ×2 (08:03→19:52)
[2024-10-22] MEDS: LASIX 80 MG IV (08:03)
[2024-10-22] MEDS: DESENEX/MITRAZOL/ZEASORB 1 APPLIC TOPICAL ×2 (08:07→19:54)
--- NOTE | 2024-10-22 08:37 | W.PN.HOSP.TC ---
Today's Communication/Plan
-
Oral diuretics
dc planning
Assessment / Plan
Assessment / Plan
74yo M with PMHx of A.fib s/p ablation and PPM, HFpEF, CAD not amendable for intervention as per cath in April 2024 transferred to [facility] for CABG, but due to high risk surgery patient decided against it, MR, Hx of repaired tetralogy of Fallot (at
24yo), CML, STEPHANIE, gout, trigeminal neuralgia, chronic pain came with 1 week of worsening b/l LE swelling, managed for CHF exacerbation with RH failure
Assessment:
Acute on chronic HFpEF exacerbation
Severe pulmonary regurgitation
RA severe dilation
Mild aortic dilation 3.9cm
- s/p IV Lasix. Transitioned to Torsemide 40mg BID
- continue Aldactone
- Cardiology following
Hypokalemia
- start KCL 20meq daily
NSVT
- follow telemetry. continue BB
LLE cellulitis
- completed Keflex course
CAD, stable
- continue Plavix/Statin
Tetralogy of Fallot s/p VSD repair
Persistent A.fib
- continue Eliquis/BB
HLD
- statin
gout
trigeminal neuralgia
Chronic pain with intrathecal pump
STEPHANIE
- continue CPAP
Stage 2 gluteal cleft pressure injury, POA
DVT ppx: Eliquis
Code: DNR/DNI
Dispo: SNF vs home/VN in 24 hours. repeat PT/OT pending
Anticipated Discharge: Within 24 hours
Subjective/Interval History
-
Date of Service: October 22, 2024
No complaints at present
weight 80.5 kg
Objective Data
-
Labs:
Laboratory Results
10/22/24
08:29
Sodium Pending
Potassium Pending
Chloride Pending
Carbon Dioxide Pending
BUN Pending
Creatinine Pending
Glucose Pending
Calcium Pending
Total Bilirubin Pending
AST Pending
ALT Pending
Alkaline Phosphatase Pending
Vital Signs:
Vital Signs
Temp Pulse Resp BP Pulse Ox
98.0 F 100 18 100/66 98
10/22/24 03:44 10/22/24 08:01 10/22/24 03:44 10/22/24 08:01 10/22/24 03:44
I&O
10/21/24 10/22/24 10/23/24
06:59 06:59 06:59
Intake Total 1200 / 1200 960 / 960
Output Total 1300 / 1300 700 / 700
Balance -100 / -100 260 / 260
Physical Exam
-
General: No Apparent Distress
HEENT: Normocephalic and Atraumatic
Respiratory: Negative Wheezes
Cardiac: Regular Rhythm and S1/S2
GI: Soft
Genito-urinary: No Costovertebral Tender
Musculoskeletal: No Edema
Neuro: AO x 3
Hematologic / Lymphatic: No Lymphadenopathy
Psych: Calm
Data Reviewed
-
Total Time Spent with Patient (in minutes): 45
Labs: Labs Reviewed by me
--- NOTE | 2024-10-22 09:21 | W.PN.CD ---
Today's Communication / Plan
-
Switch diuresis to p.o. torsemide 40 mg twice daily
Increase spironolactone to 25 mg daily assuming labs are stable
PT eval for discharge
Impression / Plan
-
74 y/o male (patient of Dr. Leos) with complex cardiac history including tetralogy of Fallot s/p VSD repair, CAD with LAD stent 2006, RCA stent 2011, LM and D1 stenting 2018, atrial flutter s/p ablation, pulmonary stenosis, 1st degree AVB,
bifascicular block, alternating BBB, NSVT, CML, hypertension, and trigeminal neuralgia. In April, he was at [place] and a pacemaker was placed and CAD was treated medically. He was in the cardiology office today and sent here for management of CHF
exacerbation. He has had SOB and worsening LE edema.
Fugqx-dc-nzkeqdg HFpEF:
-echo 04/24/24: Left ventricular ejection fraction is 55-60%. Enlarged right ventricular size. Severely dilated atria. Mild tricuspid regurgitation. Estimated pulmonary artery pressure of 30-35 mmHg, assuming a right atrial pressure of 3 mmHg. Mild
pulmonic stenosis; peak/mean gradients are 12/7. Trace pulmonic regurgitation. Mildly dilated aortic root with Sinus of Valsalva measuring 3.9 cm.
-BNP 3780 (more elevated than usual)
-on Jardiance
-Switch diuresis to torsemide 40 mg twice daily starting this p.m. to ensure he has a good response.
-Labs pending. If stable, increase spironolactone to 25 mg daily for tomorrow.
-family thinks dry weight is 175-180 lbs, which he is at now
CAD:
-severe, hx multiple stents
-stable without angina
-continue medical management: Eliquis/Plavix, atorvastatin, metoprolol
Pacemaker:
-stable
-follow telemetry
AFIB, persistent:
-continue Eliquis
NSVT: 13 seconds. symptomatic . earlier this admit. no recurrence overnight,
-Continue beta-tess
Cellulitis: Improved. Decreased erythema right foot
-management per primary
-on ABX
decubitus ulcer
Subjective:
improving. edema down, weight stable. No events on telemetry. IV Lasix 80 mg twice daily yesterday. Labs pending this morning.
Physical Exam
Vital Signs/Labs
Vital Signs
Temp Pulse Resp BP Pulse Ox
97.8 F 100 18 100/66 96
10/22/24 07:00 10/22/24 08:01 10/22/24 07:00 10/22/24 08:01 10/22/24 07:00
10/21/24 10/22/24 10/23/24
06:59 06:59 06:59
Actual Weight 80.995 kg 80.456 kg
10/20/24 08:43
Magnesium 2.0 mg/dl (1.6-2.3) 10/21/24 06:09
10/15/24
15:27
Fyn-W-Ahtkdrpieyl Pept 3780
Physical Exam
Constitutional: No acute distress and Comfortable
Cardiovascular: Rhythm & rate is regular, Pedal edema present, S1S2 is normal and Murmur/rub/gallop absent
Respiratory: Respiratory effort normal and Crackles Present
Data Reviewed
-
Date of Service: October 22, 2024
Medical Decision Making: Reviewed Test Results, Independent Historian Assessment, Test Interpretation and Review of Case with other Provider
EKG: Tracing Personally Visualized and interpreted
Echo: Report Reviewed by me
Labs: Labs Reviewed by me
[2024-10-22 09:42] LABS: ALT (SGPT) 19 U/L (0-50); AST (SGOT) 28 U/L (17-59); Albumin 3.6 g/dl (3.5-5.0); Alkaline Phosphatase 111 U/L (38-126); Blood Urea Nitrogen 17 mg/dl (9-20); Calcium 9.3 mg/dl (8.4-10.2); Carbon Dioxide 35 mmol/L (22-30); Chloride 88 mmol/L (98-107); Estimated Creatinine Clearance 85 ml/min; Glucose 132 mg/dl (70-99); Potassium 3.3 mmol/L (3.5-5.1); Sodium 133 mmol/L (135-145); Total Bilirubin 1.9 mg/dl (0.2-1.3); Total Protein 6.2 g/dl (6.3-8.2); eGFR > 60.00
--- NOTE | 2024-10-22 14:21 | CM ---
Chart reviewed. PT/OT cont to recommend SNF at d/c
Pt and spouse cont to be agreeable to SNF recommendation
Pt prefers [facility] willing to accept pt at d/c
Will need prior auth
Cardiology following
PT/OT following
Per hospitalist note, anticipated discharge within 24 hours
Plan: SNF; [facility], pending auth approval
[2024-10-22] MEDS: DEMADEX 40 MG PO (15:25)
[2024-10-23 03:33] VITALS: BP 95/60
[2024-10-23 06:05] VITALS: BMI 27.8
[2024-10-23 07:33] VITALS: BP 112/70
[2024-10-23 08:02] LABS: Glucose - Point of Care 198 mg/dl (70-99)
--- NOTE | 2024-10-23 08:38 | W.PN.CD ---
Today's Communication / Plan
-
transitioned to oral diuretic'
was on Lasix on admit
now on Spironolactone and Torsemide
K 3.1. needs addtional replacement of potassium
replace and reassess potassium in afternoon. when potassium replaced , may consider discharge
will need to monitor potassium closely after discharge ( sunday10/27/24and then weekly for 3 weeks)
Impression / Plan
-
74 y/o male (patient of Dr. Leos) with complex cardiac history including tetralogy of Fallot s/p VSD repair, CAD with LAD stent 2006, RCA stent 2011, LM and D1 stenting 2018, atrial flutter s/p ablation, pulmonary stenosis, 1st degree AVB,
bifascicular block, alternating BBB, NSVT, CML, hypertension, and trigeminal neuralgia. In April, he was at [place] and a pacemaker was placed and CAD was treated medically. He was in the cardiology office today and sent here for management of CHF
exacerbation. He has had SOB and worsening LE edema.
Emjwi-xa-udpqbmq HFpEF:
-echo 04/24/24: Left ventricular ejection fraction is 55-60%. Enlarged right ventricular size. Severely dilated atria. Mild tricuspid regurgitation. Estimated pulmonary artery pressure of 30-35 mmHg, assuming a right atrial pressure of 3 mmHg. Mild
pulmonic stenosis; peak/mean gradients are 12/7. Trace pulmonic regurgitation. Mildly dilated aortic root with Sinus of Valsalva measuring 3.9 cm.
-BNP 3780 (more elevated than usual)
-on Jardiance
-Switch diuresis to torsemide 40 mg twice daily .
-Labs pending. If stable, increase spironolactone to 25 mg daily for tomorrow.
-family thinks dry weight is 175-180 lbs, which he is at now
CAD:
-severe, hx multiple stents
-stable without angina
-continue medical management: Eliquis/Plavix, atorvastatin, metoprolol
Pacemaker:
-stable
-follow telemetry
AFIB, persistent:
-continue Eliquis
NSVT: 13 seconds. symptomatic . earlier this admit. no recurrence overnight,
-Continue beta-tess
Cellulitis: Improved. Decreased erythema right foot
-management per primary
-on ABX
decubitus ulcer
Subjective:
improving. edema down, weight stable. No events on telemetry. IV Lasix 80 mg twice daily yesterday. Labs pending this morning.
Physical Exam
Vital Signs/Labs
Vital Signs
Temp Pulse Resp BP Pulse Ox
97.9 F 85 20 112/70 95
10/23/24 07:33 10/23/24 07:33 10/23/24 07:33 10/23/24 07:33 10/23/24 07:33
10/22/24 10/23/24 10/24/24
06:59 06:59 06:59
Actual Weight 80.456 kg 80.371 kg
10/20/24 08:43
Magnesium 2.0 mg/dl (1.6-2.3) 10/22/24 08:29
10/15/24
15:27
Gqg-N-Ozbcjwqewqf Pept 3780
Physical Exam
Constitutional: No acute distress
Cardiovascular: Rhythm & rate is regular and Systolic murmur absent
Respiratory: Lungs clear to auscul.
GI: Soft
Neuro/Psych: Alert
Other: Other (mild edema)
Data Reviewed
-
Date of Service: October 23, 2024
Medical Decision Making: Reviewed Test Results
Medical Tests (PFT, Pathology etc): Report Reviewed by me
Labs: Labs Reviewed by me
[2024-10-23] MEDS: PLAVIX 75 MG PO (09:12)
[2024-10-23] MEDS: DEMADEX 40 MG PO ×2 (09:12→16:24)
[2024-10-23] MEDS: ELIQUIS 5 MG PO ×2 (09:12→20:27)
[2024-10-23] MEDS: ZETIA 10 MG PO (09:12)
[2024-10-23] MEDS: DESENEX/MITRAZOL/ZEASORB 1 APPLIC TOPICAL ×2 (09:12→20:27)
[2024-10-23] MEDS: TOPROL XL 25 MG PO ×2 (09:13→20:27)
[2024-10-23] MEDS: FARXIGA 10 MG PO (09:13)
[2024-10-23] MEDS: LIPITOR 40 MG PO (09:13)
[2024-10-23] MEDS: LYRICA 150 MG PO ×3 (09:13→21:11)
[2024-10-23] MEDS: ALDACTONE 25 MG PO (09:13)
[2024-10-23 09:33] LABS: ALT (SGPT) 18 U/L (0-50); AST (SGOT) 27 U/L (17-59); Albumin 3.5 g/dl (3.5-5.0); Alkaline Phosphatase 104 U/L (38-126); Blood Urea Nitrogen 18 mg/dl (9-20); Carbon Dioxide 35 mmol/L (22-30); Chloride 89 mmol/L (98-107); Estimated Creatinine Clearance 85 ml/min; Glucose 145 mg/dl (70-99); Potassium 3.1 mmol/L (3.5-5.1); Sodium 134 mmol/L (135-145); eGFR > 60.00
[2024-10-23] MEDS: KCL 40 MEQ PO (11:12)
[2024-10-23 11:44] VITALS: BP 99/66
--- NOTE | 2024-10-23 11:56 | W.PN.HOSP.TC ---
Today's Communication/Plan
-
replete K+ and follow pm BMP
Assessment / Plan
Assessment / Plan
74yo M with PMHx of A.fib s/p ablation and PPM, HFpEF, CAD not amendable for intervention as per cath in April 2024 transferred to [facility] for CABG, but due to high risk surgery patient decided against it, MR, Hx of repaired tetralogy of Fallot (at
24yo), CML, STEPHANIE, gout, trigeminal neuralgia, chronic pain came with 1 week of worsening b/l LE swelling, managed for CHF exacerbation with RH failure
Assessment:
Acute on chronic HFpEF exacerbation
Severe pulmonary regurgitation
RA severe dilation
Mild aortic dilation 3.9cm
- s/p IV Lasix. Transitioned to Torsemide 40mg BID
- continue Aldactone
- Cardiology following
Hypokalemia
- aggressive repletion
- monitor repeat BMP
NSVT
- follow telemetry. continue BB
LLE cellulitis
- completed Keflex course
CAD, stable
- continue Plavix/Statin
Tetralogy of Fallot s/p VSD repair
Persistent A.fib
- continue Eliquis/BB
HLD
- statin
gout
trigeminal neuralgia
Chronic pain with intrathecal pump
STEPHANIE
- continue CPAP
Stage 2 gluteal cleft pressure injury, POA
DVT ppx: Eliquis
Code: DNR/DNI
Dispo: SNF in 24 hours once K replaced adequately.
Anticipated Discharge: Within 24 hours
Subjective/Interval History
-
Date of Service: October 23, 2024
denies any new complaints at present
Objective Data
-
Labs:
Laboratory Results
10/23/24 10/23/24
08:30 16:47
Sodium 134 L Pending
Potassium 3.1 L Pending
Chloride 89 L Pending
Carbon Dioxide 35 H Pending
BUN 18 Pending
Creatinine 0.7 Pending
Glucose 145 H Pending
Calcium 9.0 Pending
Total Bilirubin 2.0 H
AST 27
ALT 18
Alkaline Phosphatase 104
Vital Signs:
Vital Signs
Temp Pulse Resp BP Pulse Ox
98.1 F 82 20 99/66 94
10/23/24 11:44 10/23/24 11:44 10/23/24 11:44 10/23/24 11:44 10/23/24 11:44
I&O
10/22/24 10/23/24 10/24/24
06:59 06:59 06:59
Intake Total 960 / 960 1240 / 1240
Output Total 700 / 700 500 / 500
Balance 260 / 260 740 / 740
Physical Exam
-
General: No Apparent Distress
HEENT: Normocephalic and Atraumatic
Respiratory: Negative Wheezes
Cardiac: Regular Rhythm and S1/S2
GI: Soft and Nontender
Musculoskeletal: No Edema
Neuro: AO x 3
Psych: Calm
Data Reviewed
-
Total Time Spent with Patient (in minutes): 42
Labs: Labs Reviewed by me
--- NOTE | 2024-10-23 13:22 | CM ---
Addendum entered by Radha Salguero 10/24/24 13:19:
Auth obtained for SNF. Approved beginning 10/24 NRD 10/28
Auth ref #[id number]
Ambulance ref # [id number]. Transport scheduled for 5:45pm
IMM reviewed, pt given copy. Copy placed in chart
[facility]
Report: [phone]

Plan: [facility] via ambulance
Original Note:
Chart reviewed.
Per hospitalist, poss d/c tomorrow. Monitoring potassium.
PT/OT cont to recommend SNF. [facility] able to accept
Will need auth. PT/OT to see tomorrow for CM to obtain auth
Will need ambulance transport
Plan: [facility] pending auth approval
[2024-10-23] MEDS: KCL 20 MEQ PO (14:10)
[2024-10-23 15:16] VITALS: BP 91/61
[2024-10-23 19:30] VITALS: BP 95/67
[2024-10-23 19:50] LABS: Potassium 4.2 mmol/L (3.5-5.1)
[2024-10-23 19:51] LABS: Blood Urea Nitrogen 19 mg/dl (9-20); Calcium 9.1 mg/dl (8.4-10.2); Carbon Dioxide 34 mmol/L (22-30); Chloride 87 mmol/L (98-107); Estimated Creatinine Clearance 75 ml/min; Glucose 225 mg/dl (70-99); Sodium 131 mmol/L (135-145); eGFR > 60.00
[2024-10-23 23:30] VITALS: BP 91/59
[2024-10-24 03:30] VITALS: BP 94/60
[2024-10-24 06:00] VITALS: BMI 28.7
[2024-10-24 07:15] VITALS: BP 116/66
--- NOTE | 2024-10-24 08:35 | W.PN.CD ---
Today's Communication / Plan
-
Okay with discharge on torsemide 40 mg p.o. twice daily. Aldactone was also increased to 25 mg. Potassium supplementation also ordered.
Please call the office for outpatient follow-up upon discharge from rehab.
Check renal panel on Sunday and then every Sunday for 3 weeks.
Impression / Plan
-
74 y/o male (patient of Dr. Leos) with complex cardiac history including tetralogy of Fallot s/p VSD repair, CAD with LAD stent 2006, RCA stent 2011, LM and D1 stenting 2018, atrial flutter s/p ablation, pulmonary stenosis, 1st degree AVB,
bifascicular block, alternating BBB, NSVT, CML, hypertension, and trigeminal neuralgia. In April, he was at [place] and a pacemaker was placed and CAD was treated medically. He was in the cardiology office today and sent here for management of CHF
exacerbation. He has had SOB and worsening LE edema.
Vqtyg-vr-zuofzmc HFpEF:
-echo 04/24/24: Left ventricular ejection fraction is 55-60%. Enlarged right ventricular size. Severely dilated atria. Mild tricuspid regurgitation. Estimated pulmonary artery pressure of 30-35 mmHg, assuming a right atrial pressure of 3 mmHg. Mild
pulmonic stenosis; peak/mean gradients are 12/7. Trace pulmonic regurgitation. Mildly dilated aortic root with Sinus of Valsalva measuring 3.9 cm.
-BNP 3780 (more elevated than usual)
-on Jardiance
-Continue torsemide 40 mg twice daily with potassium supplement.
-spironolactone to 25 mg daily
-repeat renal panel in 3 days then weekly
CAD:
-severe, hx multiple stents
-stable without angina
-continue medical management: Eliquis/Plavix, atorvastatin, metoprolol
Pacemaker:
-stable
-follow telemetry
AFIB, persistent:
-continue Eliquis
NSVT: 13 seconds. symptomatic . earlier this admit. no recurrence overnight,
-Continue beta-tess
Cellulitis: Improved. Decreased erythema right foot
-management per primary
-on ABX
decubitus ulcer
Subjective:
improving. edema down, weight stable. No events on telemetry.
K improved.
Physical Exam
Vital Signs/Labs
Vital Signs
Temp Pulse Resp BP Pulse Ox
98.0 F 83 14 94/60 95
10/24/24 03:30 10/24/24 03:30 10/24/24 03:30 10/24/24 03:30 10/24/24 03:30
10/23/24 10/24/24 10/25/24
06:59 06:59 06:59
Actual Weight 80.371 kg 83.036 kg
10/20/24 08:43
Magnesium 2.0 mg/dl (1.6-2.3) 10/23/24 08:30
10/15/24
15:27
Ymu-H-Udxwjwhutxj Pept 3780
Physical Exam
Constitutional: No acute distress
Cardiovascular: Rhythm & rate is regular, JVD pressure is normal, Systolic murmur absent and Pedal edema present (trivial pitting edema bl)
Respiratory: Respiratory effort normal, Lungs clear to auscul., Wheeze Absent, Crackles Absent and Rhonchi Absent
Neuro/Psych: AO x 3
Data Reviewed
-
Date of Service: October 24, 2024
Medical Decision Making: Review of Case with other Provider (Reviewed with stephanie Mark for discharge on new diuretic regimen. )
EKG: Other (Telemetry AV paced with PVCs)
[2024-10-24 09:27] VITALS: BMI 27.8
[2024-10-24] MEDS: DEMADEX 40 MG PO ×2 (09:29→16:06)
[2024-10-24] MEDS: ZETIA 10 MG PO (09:30)
[2024-10-24] MEDS: LIPITOR 40 MG PO (09:30)
[2024-10-24] MEDS: PLAVIX 75 MG PO (09:30)
[2024-10-24] MEDS: ELIQUIS 5 MG PO (09:30)
[2024-10-24] MEDS: FARXIGA 10 MG PO (09:30)
[2024-10-24] MEDS: ALDACTONE 25 MG PO (09:31)
[2024-10-24] MEDS: KCL 20 MEQ PO (09:31)
[2024-10-24] MEDS: TOPROL XL 25 MG PO (09:32)
[2024-10-24] MEDS: LYRICA 150 MG PO ×2 (09:32→16:06)
--- NOTE | 2024-10-24 10:01 | W.PN.HOSP.TC ---
Addendum entered and electronically signed by Sumit Laureano MD 10/24/24 15:42:
Hyponatremia
Original Note:
Today's Communication/Plan
-
dc to SNF
Assessment / Plan
Assessment / Plan
74yo M with PMHx of A.fib s/p ablation and PPM, HFpEF, CAD not amendable for intervention as per cath in April 2024 transferred to [facility] for CABG, but due to high risk surgery patient decided against it, MR, Hx of repaired tetralogy of Fallot (at
24yo), CML, STEPHANIE, gout, trigeminal neuralgia, chronic pain came with 1 week of worsening b/l LE swelling, managed for CHF exacerbation with RH failure
Assessment:
Acute on chronic HFpEF exacerbation
Severe pulmonary regurgitation
RA severe dilation
Mild aortic dilation 3.9cm
- s/p IV Lasix. Transitioned to Torsemide 40mg BID
- continue Aldactone
- Cardiology following
Hypokalemia
- continue daily 20meq replacement
- monitor repeat BMP
NSVT
- follow telemetry. continue BB
LLE cellulitis
- completed Keflex course
CAD, stable
- continue Plavix/Statin
Tetralogy of Fallot s/p VSD repair
Persistent A.fib
- continue Eliquis/BB
HLD
- statin
gout
trigeminal neuralgia
Chronic pain with intrathecal pump
STEPHANIE
- continue CPAP
Stage 2 gluteal cleft pressure injury, POA
DVT ppx: Eliquis
Code: DNR/DNI
Dispo: SNF today
More than 30 minutes spent in discharge including
Final examination of the patient
Summarizing hospital stay
Instructions for continuing care to all relevant caregivers
Preparation of discharge records, prescriptions, and referral forms
Total time spent (in minutes):41
Anticipated Discharge: Today
Subjective/Interval History
-
Date of Service: October 24, 2024
denies any new complaints at present
Objective Data
-
Labs:
Laboratory Results
10/24/24
07:44
Sodium Pending
Potassium Pending
Chloride Pending
Carbon Dioxide Pending
BUN Pending
Creatinine Pending
Glucose Pending
Calcium Pending
Total Bilirubin Pending
AST Pending
ALT Pending
Alkaline Phosphatase Pending
Vital Signs:
Vital Signs
Temp Pulse Resp BP Pulse Ox
97.2 F 56 18 116/66 96
10/24/24 07:15 10/24/24 07:15 10/24/24 07:15 10/24/24 07:15 10/24/24 07:15
I&O
10/23/24 10/24/24 10/25/24
06:59 06:59 06:59
Intake Total 1240 / 1240 1200 / 1200
Output Total 500 / 500 1625 / 1625
Balance 740 / 740 -425 / -425
Physical Exam
-
General: No Apparent Distress
HEENT: Normocephalic and Atraumatic
Respiratory: Negative Wheezes
Cardiac: Regular Rhythm and S1/S2
GI: Soft
Genito-urinary: No Costovertebral Tender
Neuro: AO x 3
Psych: Calm
Data Reviewed
-
Total Time Spent with Patient (in minutes): 41
Labs: Labs Reviewed by me
[2024-10-24] MEDS: DESENEX/MITRAZOL/ZEASORB 1 APPLIC TOPICAL (10:06)
[2024-10-24 10:10] LABS: ALT (SGPT) 19 U/L (0-50); AST (SGOT) 34 U/L (17-59); Albumin 3.6 g/dl (3.5-5.0); Alkaline Phosphatase 106 U/L (38-126); Blood Urea Nitrogen 19 mg/dl (9-20); Calcium 9.2 mg/dl (8.4-10.2); Carbon Dioxide 34 mmol/L (22-30); Chloride 90 mmol/L (98-107); Estimated Creatinine Clearance 85 ml/min; Glucose 151 mg/dl (70-99); Magnesium 2.2 mg/dl (1.6-2.3); Potassium 4.2 mmol/L (3.5-5.1); Sodium 132 mmol/L (135-145); Total Bilirubin 2.1 mg/dl (0.2-1.3); eGFR > 60.00
--- NOTE | 2024-10-24 10:13 | W.DS.TRANS ---
DC Summary - [employer]
-
Discharge Instructions:
Discharge Diagnosis/Procedures acute on chronic HFpEF, Hypokalemia
Diet Low Cholesterol,2 Gram Sodium,Restrict fluids to
48 oz
Activity As tolerated
Bathing Restrictions None
Blood Work repeat [facility] 10/27 and weekly for 3 weeks onward to
monitor K and renal function
Other Services OT,PT
Instructions: *[facility] Heart Failure Instructions
Stand-Alone Forms:
Changes to Home Medications: No
Discharge Medications:
DC Medications w/original date entered in [facility]
apixaban 5 mg tablet (Eliquis) 5 mg PO BID Blood clot prevention/tx 30 days #60 tabs 12/27/20
Patient's Own Morphine Pump 1.01 mg intrathecal .VIA PUMP Pain 04/24/24
atorvastatin 40 mg tablet 40 mg PO DAILY High Cholesterol 08/29/24
clopidogrel 75 mg tablet 75 mg PO DAILY Blood Clot Prevention/Tx 08/29/24
empagliflozin 10 mg tablet (Jardiance) 10 mg PO BID heart failure/diabetes 08/29/24
ezetimibe 10 mg tablet (Zetia) 10 mg PO DAILY High Cholesterol 08/29/24
metoprolol succinate 25 mg tablet,extended release 24 hr 25 mg PO BID Heart Disease/Condition 10/15/24
nitroglycerin 0.4 mg sublingual tablet 0.4 mg sublingual Q5MPRN PRN x 3 doses PRN chest pain 10/15/24
pregabalin 150 mg capsule 150 mg PO TID Pain 10/15/24
potassium chloride 20 mEq tablet,extended release(part/cryst) 20 meq PO DAILY #30 tabs 10/24/24
spironolactone 25 mg tablet 25 mg PO DAILY #30 tabs 10/24/24
torsemide 20 mg tablet 40 mg (2 x 20 mg) PO BID@0800,1600 #120 tabs 10/24/24
tramadol 50 mg tablet 50 mg PO Q8HPRN PRN breakthrough pain 1 week #10 tabs 10/24/24
Home Medication Changes
Lasix to Torsemide
Pending Results: No
Total time spent discharging patient (in min): 41
[2024-10-24 10:17] VITALS: BP 114/80; PULSE 106; O2SAT 92
[2024-10-24 11:15] VITALS: BP 122/70
[2024-10-24 15:00] VITALS: BP 96/68
--- NOTE | 2024-10-24 15:18 | PN.CDI ---
CDI
- -
CDI:
Physician Documentation Request
Admit Date: 10/15/24 18:54
Dear Doctor Georgi,
Patient admitted acute on chronic diastolic CHF.
Na levels documented below:
Laboratory Tests
10/15/24 10/16/24 10/16/24
14:48 06:10 11:47
Sodium 130 L 131 L 131 L
10/18/24 10/23/24 10/24/24
07:55 19:12 07:44
Sodium 132 L 131 L 132 L
Based on the above, could you clarify in the progress notes, the appropriate diagnosis, if significant, that supports the above abnormalities and additional evaluation, monitoring and/or treatment rendered:
Hyponatremia
Insignificant abnormal lab findings
Other
Use of terms such as suspected, likely, concern for, or probable (associated with a specific diagnosis that is being evaluated, monitored, or treated as if it exists) are acceptable and can be coded in the inpatient setting, when documented at the
time of discharge.
Thank you,
Reema CARR,RN,CCDS
CDI Specialist
Available via [place] text
Please use your independent medical judgment in providing your response.
== END 2024-10-24 17:45 | DRG 291 ==
LOC: 4 WEST ACU 18:54
PROVIDERS: Clinical Nurse Specialist Family Health; Emergency Medicine; Internal Medicine; ADMITTING PHYSICIAN Internal Medicine; ATTENDING PHYSICIAN Internal Medicine; EMERGENCY PHYSICIAN Emergency Medicine; FAMILY PHYSICIAN Family Medicine
PROC: 5A09357 Assistance with Respiratory Ventilation, Less than 24 Consecutive Hours, Continuous Positive Airway Pressure (ICD-10-PCS; 2024-10-22)
DX: I11.0 Hypertensive heart disease with heart failure (principal); I50.33 Acute on chronic diastolic (congestive) heart failure; E87.1 Hypo-osmolality and hyponatremia; I47.20 Ventricular tachycardia, unspecified; I48.19 Other persistent atrial fibrillation; L03.116 Cellulitis of left lower limb; E78.00 Pure hypercholesterolemia, unspecified; I25.10 Atherosclerotic heart disease of native coronary artery without angina pectoris; K21.9 Gastro-esophageal reflux disease without esophagitis; G47.33 Obstructive sleep apnea (adult) (pediatric); M51.360 Other intervertebral disc degeneration, lumbar region with discogenic back pain only; L89.152 Pressure ulcer of sacral region, stage 2; G50.0 Trigeminal neuralgia; K59.00 Constipation, unspecified; E87.6 Hypokalemia; I37.1 Nonrheumatic pulmonary valve insufficiency; R29.810 Facial weakness; G89.29 Other chronic pain; Z66 Do not resuscitate; I25.2 Old myocardial infarction; Z83.3 Family history of diabetes mellitus; Z79.01 Long term (current) use of anticoagulants; Z79.02 Long term (current) use of antithrombotics/antiplatelets; Z79.84 Long term (current) use of oral hypoglycemic drugs; Z95.5 Presence of coronary angioplasty implant and graft; Z79.891 Long term (current) use of opiate analgesic; Z95.0 Presence of cardiac pacemaker; Z88.5 Allergy status to narcotic agent; Z91.013 Allergy to seafood; Z85.6 Personal history of leukemia; Z86.79 Personal history of other diseases of the circulatory system; Z92.21 Personal history of antineoplastic chemotherapy
CPT/HCPCS: 71046; 80048; 80053; 82248; 82962; 83615; 83735; 83880; 84132; 85025; 86880; 93005; 94660; 96374; 97116; 97163; 97167; 97530; 97535; 99285

== ENCOUNTER → 2024-12-05 13:03 | Outpatient (REF) | payer OTHER, SELFPAY | LOC: RAD 13:03 | PROVIDERS: ATTENDING PHYSICIAN Nurse Practitioner Family | DX: R07.81 Pleurodynia (principal) | CPT/HCPCS: 71111 ==

== ENCOUNTER → 2025-02-03 08:19 | Outpatient (REF) | payer OTHER, SELFPAY | LOC: RAD 08:19 | PROVIDERS: ATTENDING PHYSICIAN Podiatrist Foot & Ankle Surgery; FAMILY PHYSICIAN Family Medicine | DX: E11.51 Type 2 diabetes mellitus with diabetic peripheral angiopathy without gangrene (principal); M79.673 Pain in unspecified foot | CPT/HCPCS: 93922; 93925 ==

== ENCOUNTER → 2025-02-20 15:48 | Outpatient (REF) | payer OTHER, SELFPAY | LOC: RAD 15:48 | PROVIDERS: ATTENDING PHYSICIAN Surgery Vascular Surgery; FAMILY PHYSICIAN Family Medicine; REFERRING PHYSICIAN Internal Medicine Cardiovascular Disease | DX: I73.9 Peripheral vascular disease, unspecified (principal) | CPT/HCPCS: 75635; Q9967 ==

== ENCOUNTER → 2025-03-20 08:43 | Outpatient (REF) | payer OTHER, SELFPAY | LOC: PET 08:43 | PROVIDERS: ATTENDING PHYSICIAN Nurse Practitioner Adult Health | DX: C92.10 Chronic myeloid leukemia, BCR/ABL-positive, not having achieved remission (principal) | CPT/HCPCS: 78815; A9552 ==

== ENCOUNTER → 2025-04-06 07:18 | Outpatient (REF) | payer OTHER, SELFPAY ==
[2025-04-06] VITALS (9 sets, daily range): BP systolic 80–116; BP diastolic 54–77
[2025-04-06 09:10] LABS: Hematocrit 37.3 % (39.0-52.0); Hemoglobin 12.6 g/dL (13.0-18.0); Mean Corp Hgb Conc. 33.8 g/dL (33.0-37.0); Mean Corpuscular Volume 85.9 fL (80.0-94.0); Mean Platelet Volume 10.5 fL (7.4-10.4); Platelet Count 154 10^3/uL (130-400); Red Blood Cell Count 4.34 10^6/uL (4.70-6.10); Red Cell Dist. Width 17.4 % (11.5-14.5); White Blood Cell Count 11.3 10^3/uL (4.8-10.8)
[2025-04-06 09:35] LABS: INR 1.15
== END ==
LOC: RADI 07:18
PROVIDERS: ATTENDING PHYSICIAN Internal Medicine Hematology & Oncology; FAMILY PHYSICIAN Family Medicine
DX: C82.11 Follicular lymphoma grade II, lymph nodes of head, face, and neck (principal); C92.10 Chronic myeloid leukemia, BCR/ABL-positive, not having achieved remission; D68.8 Other specified coagulation defects
CPT/HCPCS: 88305; 36415; 38505; 76942; 85027; 85610; 88184; 88185; 88333; 88341; 88342; 99152

== ENCOUNTER → 2025-04-16 14:38 | Outpatient (REF) | payer OTHER, SELFPAY ==
[2025-04-16 16:08] LABS: Albumin 3.9 g/dl (3.5-5.0); Blood Urea Nitrogen 18 mg/dl (9-20); Carbon Dioxide 28 mmol/L (22-30); Chloride 100 mmol/L (98-107); Glucose 131 mg/dl (70-99); Phosphorus 3.2 mg/dl (2.5-4.5); Potassium 3.8 mmol/L (3.5-5.1); Sodium 134 mmol/L (135-145); eGFR > 60.00
== END ==
LOC: REG 14:38
PROVIDERS: ATTENDING PHYSICIAN Internal Medicine Cardiovascular Disease; FAMILY PHYSICIAN Family Medicine
DX: I50.32 Chronic diastolic (congestive) heart failure (principal); I48.0 Paroxysmal atrial fibrillation; Z95.0 Presence of cardiac pacemaker; I25.10 Atherosclerotic heart disease of native coronary artery without angina pectoris; Q24.9 Congenital malformation of heart, unspecified; C92.10 Chronic myeloid leukemia, BCR/ABL-positive, not having achieved remission
CPT/HCPCS: 36415; 80069

== ENCOUNTER → 2025-04-21 10:31 | Outpatient (REF) | payer OTHER, SELFPAY ==
[2025-04-21 12:36] LABS: Albumin 4.1 g/dl (3.5-5.0); Blood Urea Nitrogen 22 mg/dl (9-20); Calcium 9.2 mg/dl (8.4-10.2); Carbon Dioxide 22 mmol/L (22-30); Chloride 100 mmol/L (98-107); Glucose 110 mg/dl (70-99); Phosphorus 3.3 mg/dl (2.5-4.5); Potassium 4.3 mmol/L (3.5-5.1); Sodium 132 mmol/L (135-145); eGFR > 60.00
== END ==
LOC: REG 10:31
PROVIDERS: ATTENDING PHYSICIAN Internal Medicine Cardiovascular Disease; FAMILY PHYSICIAN Family Medicine
DX: E78.2 Mixed hyperlipidemia (principal); I25.10 Atherosclerotic heart disease of native coronary artery without angina pectoris
CPT/HCPCS: 36415; 80069

== ENCOUNTER → 2025-04-27 06:45 | Outpatient (REF) | payer OTHER, SELFPAY ==
[2025-04-27 07:14] LABS: % Basophils 0.7 % (0-2); % Eosinophils 1.9 % (0-6); % Immature Granulocytes 1.2 % (0-0.5); % Lymphocytes 22.4 % (20.5-51.1); % Monocytes 7.9 % (1.7-9.3); % Neutrophils 65.9 % (42.2-75.2); Absolute Basophils 0.1 10^3/uL (0-0.2); Absolute Eosinophils 0.2 10^3/uL (0-0.7); Absolute Immature Granulocytes 0.1 10^3/uL (0-0.05); Absolute Lymphocytes 2.1 10^3/uL (1.2-3.4); Absolute Monocytes 0.8 10^3/uL (0.1-0.6); Absolute Neutrophils 6.3 10^3/uL (1.4-6.5); Hematocrit 41.1 % (39.0-52.0); Hemoglobin 13.6 g/dL (13.0-18.0); Mean Corp Hgb Conc. 33.1 g/dL (33.0-37.0); Mean Corpuscular Hgb 29.6 pg (27.0-31.0); Mean Corpuscular Volume 89.3 fL (80.0-94.0); Mean Platelet Volume 9.6 fL (7.4-10.4); Nucleated Red Blood Cells % 0 % (-); Platelet Count 187 10^3/uL (130-400); Red Cell Dist. Width 17.8 % (11.5-14.5); White Blood Cell Count 9.5 10^3/uL (4.8-10.8)
[2025-04-27 07:20] VITALS: BP 119/76; BP_SYST 58
[2025-04-27] MEDS: NSS (PRESERVATIVE FREE) 0.25 ML IV (08:18)
[2025-04-27] MEDS: ATIVAN 0.5 MG IV (08:18)
[2025-04-27] MEDS: TORADOL 15 MG IV (08:18)
[2025-04-27] MEDS: FLUSH (NSS) 1 FLUSH IV (08:19)
[2025-04-27 09:05] VITALS: BP 102/71; BP 97/70; BP_SYST 84
== END ==
LOC: RADI 06:45
PROVIDERS: ATTENDING PHYSICIAN Internal Medicine Hematology & Oncology; FAMILY PHYSICIAN Family Medicine
DX: C92.10 Chronic myeloid leukemia, BCR/ABL-positive, not having achieved remission (principal)
CPT/HCPCS: 88305; 88311; 88312; 36415; 38222; 77012; 85025; 88313